=== PATIENT | male | born 1950 | race Two or more races ===

== ENCOUNTER 2025-08-06 16:55 | Inpatient (IN) | payer MEDICARE, SELFPAY ==
[2025-08-06] VITALS (19 sets, daily range): BP systolic 134–189; BP diastolic 74–104; PULSE 88–101; RESP 10–27; TEMP 36.6–36.7; O2SAT 95–97; BMI 24.1
--- NOTE | 2025-08-06 17:02 | PD.EDNEURO ---
Neuro Symptoms Deficit-RME/HPI General Chief Complaint: Neuro Symptoms/Deficit Stated Complaint: STROKE ALERT Time Seen by Provider: 08/06/25 17:07 Arrival date/time: 08/06/25 16:55 Limitations: no limitations RME / HPI RME / HPI Narrative: 75 year old male with history of diabetes presents to the ED, brought in by his sister for evaluation of left-sided weakness. The weakness began yesterday afternoon and has progressively worsened. He reports that yesterday morning, he was able to walk a quarter mile without difficulty, but later in the day, he developed weakness on the left side of his body.. Additionally, the patient complains of constipation for the past week and difficulty urinating for the last four days. His sister, who is at the bedside, notes that the patients speech is different, has felt hot to the touch, and has had red, swollen eyes. Denies measuring temperature at home. Patient denies any cough, shortness of breath, abdominal pain, or nausea/vomiting. On initial exam: The patient is able to raise both legs, left leg 4/5 and right leg 5/5. The right arm is 5/5 and the left arm is 0/5. Related Data Home Medications ?Medication ?Instructions ?Recorded ?Confirmed lisinopril .ROUTE 08/07/25 metformin .ROUTE 08/07/25 Allergies Allergy/AdvReac Type Severity Reaction Status Date / Time No Known Drug Allergies Allergy Verified 08/06/25 18:04 Review of Systems Review of Systems Systems Reviewed: All systems reviewed, normal except as documented ED Exam Narrative Physical exam: Constitutional: Awake, alert, disheveled, positive odor of urine and stool HEENT: NC, AT, EOMI, PERRL initial exam. Neck: Supple CV: Mildly tachycardic, regular rhythm, no m/r/g Lungs: CTAB, no w/r/r, no respiratory distress. Abd: Soft, tender lower abdomen, mass noted to suprapubic region up to level of umbilicus most likely enlarged bladder. Extremities: No deformities, no edema noted to extremities. Neuro: AAOx3, left sided facial droop - mild. The patient is able to raise both legs though with 4/5 weakness to left side. The right arm strength is 5/5 and the left arm is 0/5. NIHSS: 7 (facial palsy +1, L arm motor +4, L leg +1, dysarthria +1) Skin: Warm, dry, intact General Limitations: Present no limitations Course Course Course Narrative: 1655h: Called into to triage to evaluate the patient for possible stroke alert. 1657h: Stroke alert activated. NIHSS 7. 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 Patient appears to have urinary retention on exam, greene placed, will check urine. Patient is also tachycardic, concern for infection. Abx ordered. 1750h: Patient with white blood cell count of 19.7, tachycardic, likely UTI. Sepsis alert activated. IV fluids and antibiotics ordered. 1805h: Discussed case with hospitalist team C for admission. State they will pass admission to night team and requesting CT of abdomen prior to admission. Patients case signed out to Dr. Day pending CT and admission. Quality Measures Suspected type of Stroke: Acute Ischemic Tenecteplase given: Reason(s) TPA not given: Outside the time window not given stroke Orders Category Date Time Status Bedside Blood Glucose NOW Care 08/06/25 17:08 Completed COVID-19 Screening Questionnaire NOW Care 08/06/25 18:02 Completed Primer Waterproofing Machine Adjuster NOW Care 08/06/25 17:08 Active Consult Supervisor [employer] NOW Care 08/06/25 18:23 Completed Continuous Pulse Oximetry NOW Care 08/06/25 17:08 Completed Decision to Admit X1 Care 08/06/25 18:02 Completed EKG (ED ONLY) *Do not use* NOW Care 08/06/25 17:08 Completed In and Out Catheter NEEDED Care 08/06/25 17:08 Active Insert IV NOW Care 08/06/25 17:08 Active NIH Stroke Scale now Care 08/06/25 17:08 Completed NPO NOW Care 08/06/25 17:08 Active Nurse Swallow Screen x1 Care 08/06/25 17:[address] abdomen pelvis wo con Stat Exams 08/06/25 18:[address] angio stroke protocol Stat Exams 08/06/25 17:[address] stroke protocol Stat Exams 08/06/25 17:05 Completed EKG (ED Only) Stat Exams 08/06/25 17:08 Draft XR abdomen 1V Stat Exams 08/06/25 17:10 Completed XR chest 1V portable Stat Exams 08/06/25 17:08 Completed Blood Culture (Lab) Stat Lab 08/06/25 17:59 Received CBC Stat Lab 08/06/25 17:09 Completed CRP [C-Reactive Protein] Stat Lab 08/06/25 17:55 Completed Comprehensive Metabolic Panel Stat Lab 08/06/25 17:09 Completed Drug Screen,Urine Stat Lab 08/06/25 17:50 Completed Lactate (Lactic Acid) Stat Lab 08/06/25 17:55 Completed Magnesium Stat Lab 08/06/25 17:09 Completed Partial Thromboplastin Time Stat Lab 08/06/25 17:09 Completed Procalcitonin Stat Lab 08/06/25 17:55 Completed Prothrombin Time with INR Stat Lab 08/06/25 17:09 Completed Urinalysis, C/S if Indicated Stat Lab 08/06/25 17:50 Completed Sodium Chloride 0.9% 1000 ml [Ns] 1,000 ml Med 08/06/25 17:49 Discontinued IV 999 mls/hr cefTRIAXone/D5w 1gm IV premix [Rocephin/D5w 1gm IV Med 08/06/25 17:49 Discontinued premix] 1 gm in 50 ml IV X1 Vital Signs Vital signs: Vital Signs Pulse Rate 101 H 08/06/25 17:08 Neuro Symptoms / Deficit Patient data External records reviewed:: None (No previous medical records for review ) Clinical information provided by:: patient and family (sister ) Social determinants that could affect healthcare access:: none Patient has the following chronic illnesses:: Diabetes How is presenting disease/condition affected by chronic disease/condition?: uneffected by Evaluation data The following diagnostics were reviewed and interpreted by me:: lab results, radiology exam(s) and EKG tracing(s) (17:34h T-wave inversion in v1 through v3 otherwise no acute ischemic changes, sinus tachycardia, rate 101 ) Lab and/or radiology exams considered but not ordered:: None Interpretation Summary: Ordering Physician: Liz Espinosa MD Date of Service: 08/06/25 Procedure(s): CT stroke protocol Accession Number(s): [id number] cc: Julio César Garcia MD; Liz Espinosa MD~ Examination: CT brain head without contrast. 2-D sagittal coronal reconstructions Date and time of exam:August 06, 2025, 1709 hrs. Indications: Stroke alert, onset focal neurologic deficit today left-sided body weakness CTDI: vol (mGy):52.2 DLP: (mGycm):1144 Technique: Multiple CT axial sections of the brain have been obtained, 5 mm slice thickness. Contrast has not been administered. 2-D sagittal, coronal reconstructions have been obtained Low dose protocols were performed. One or more of the following dose reduction techniques were used; automated exposure control, adjustment of the mA and/or KV according to patient size, use of iterative reconstruction technique. Findings: No significant ventricular enlargement. Low density consistent with encephalomalacia in the right frontal lobe and right basal ganglia with minimal ex lateral ventricular dilatation Intra-axial or extra-axial hemorrhage density is not seen. No mass effect or midline shift Basal cisterns are not remarkable. Fourth ventricle is midline. Cranial vault intact. Impression: Negative for acute hemorrhage, mass effect or midline shift Dictated By: Julio César Garcia MD Signed By: <Electronically signed by Julio César Garcia MD in OV> 08/06/25 1712 Medications / Prescriptions Medications or Prescriptions considered but not ordered:: None Medication administrations:: Medication Administration History Dextrose/Sodium Chloride (D5-Ns) 1,000 mls @ 60 mls/hr IV .[id number] [facility] Stop: 09/06/25 04:14 Last Admin: 08/07/25 04:32 Dose: 60 mls/hr Documented By: VR Discontinued Medications Aspirin (Aspirin Ec 81 Mg Tabec) 81 mg PO X1 ONE Stop: 08/06/25 20:47 Last Admin: 08/07/25 03:17 Dose: Not Given Documented By: VR Non-Admin Reason: Discontinued Aspirin (Aspirin Ec 81 Mg Tabec) 81 mg PO QDAY [facility] Stop: 09/06/25 08:59 Atorvastatin Calcium (Atorvastatin Calcium 20 Mg Tablet) 80 mg PO HS ANALIA Stop: 09/05/25 20:59 Last Admin: 08/07/25 03:17 Dose: Not Given Documented By: VR Non-Admin Reason: NPO Clopidogrel Bisulfate (Clopidogrel Bisulfate 75 Mg Tablet) 75 mg PO X1 ONE Stop: 08/06/25 20:47 Last Admin: 08/07/25 03:17 Dose: Not Given Documented By: VR Non-Admin Reason: Discontinued Clopidogrel Bisulfate (Clopidogrel Bisulfate 75 Mg Tablet) 75 mg PO QDAY [facility] Stop: 09/06/25 08:59 Dextrose (Dextrose 50%-Water Inj 50 Ml Syringe) 25 ml IV Q15MIN PRN PRN Reason: BG 50-70 responsive npo pt Stop: 09/05/25 20:36 Dextrose (Dextrose 50%-Water Inj 50 Ml Syringe) 50 ml IV Q15MIN PRN PRN Reason: BG <50 OR BG <70 & pt unresponsive Stop: 09/05/25 20:36 Glucagon (Glucagon Inj 1 Mg Vial) 1 mg IM Q15MIN PRN PRN Reason: BG <70, and no IV access Glycerin (Glycerin, Adult 1 Ea Supp) 1 each MN X1 ONE Stop: 08/06/25 21:01 Last Admin: 08/07/25 04:53 Dose: Not Given Documented By: STANISLAW Non-Admin Reason: Discontinued Heparin Sodium (Porcine) (Heparin Sod Inj 5000 Unit/Ml Vial) 5,000 unit SC BID [facility] Stop: 08/21/25 08:59 Ceftriaxone Sodium/Dextrose (Rocephin/D5w 1gm Iv Premix) 1 gm in 50 mls @ 100 mls/hr IV X1 ONE Stop: 08/06/25 18:18 Last Infusion: 08/06/25 19:30 Dose: Infused Documented By: Admin: 08/06/25 18:52 Dose: 100 mls/hr Documented By: ED Sodium Chloride (Ns) 1,000 mls @ 999 mls/hr IV .Q1H1M ONE Stop: 08/06/25 18:49 Last Infusion: 08/06/25 20:57 Dose: Infused Documented By: Admin: 08/06/25 18:10 Dose: 999 mls/hr Documented By: ED Sodium Chloride (Ns) 1,000 mls @ 999 mls/hr IV .Q1H1M ONE Stop: 08/07/25 01:03 Insulin Human Lispro (Insulin Lispro (Admelog) 1 Unit/0.01 Ml Unit) 0 unit SC Q6HR [facility]; Protocol Stop: 09/05/25 20:39 Last Admin: 08/07/25 01:16 Dose: 1 unit Documented By: ARCELIA Co-signed By: PARISH Admin: 08/07/25 01:16 Dose: Not Given Documented By: ARCELIA Non-Admin Reason: Contraindicated as above Consultations Consultation(s) initiated? (list below): Yes Consultation #1 (Physician, Specialty, Details): See course Diagnosis Neuro Differential Diagnosis: subarachnoid hemorrhage, cerebrovascular accident and transient cerebral ischemia Most likely diagnosis given after review of the tests above:: CVA, UTI, Sepsis Admission Indicated Admission indicated?: indicated Explain why admission is indicated or not indicated:: Hospitalist team C requesting abdomen CT prior to admission Admission Request Was there a request for admission?: Yes Admission Attestation Admission request attestation: Discussed case with [] from Hospitalist service regarding admission. Discussed patients ED course, exam findings, labs, and radiology results. The Hospitalist [agrees,declines] to accept the patient for admission. Disposition Plan Disposition Plan: other (specify) (Signed out pending CT and final disposition. ) Discharge Plan Plan Patient Disposition: Admit Acute Care w/in Hospital Patient condition on transfer: Stable Problem List Clinical Impression: Cerebrovascular accident, Acute UTI, Acute urinary retention, Sepsis
--- NOTE | 2025-08-06 17:05 | XR_ITS ---
Examination: CTA carotids with intravenous contrast CTA brain, head with intravenous contrast. 2-D sagittal, coronal reconstructions. 3-D reconstructions. Exam date and time: August 06, 2025, 1720 hrs. Indications: Onset left-sided body weakness today CTDI: vol (mGy) 27.8 DLP: (mGycm) 491 Technique: Multiple CTA axial brain, head carotid images post intravenous contrast injection 100 cc, [id number]. 2-D sagittal, coronal reconstructions. 3-D reconstructions, 3-D post processing including vascular maximum intensity projection images. Low dose protocols were performed. One or more of the following dose reduction techniques were used; automated exposure control, adjustment of the mA and/or KV according to patient size, use of iterative reconstruction technique. Findings: Moderate calcification left carotid bifurcation 60% stenosis proximal 10 mm left internal carotid artery, sagittal image 33 Moderate calcification right carotid bifurcation 50% stenosis proximal right internal carotid artery 10 mm from its origin Dominant left vertebral artery in the neck with no significant stenoses Intracranial vertebral arteries and basilar artery fill 90% stenosis junction P1 and P2 segments right posterior cerebral artery 80% stenosis left P1 segment posterior cerebral artery 80% stenosis proximal M1 segment left middle cerebral artery No large vessel occlusions involving the middle cerebral anterior cerebral or posterior cerebral branches Impression: 60% stenosis proximal left internal carotid artery 50% stenosis proximal right internal carotid artery 90% stenosis junction P1 P2 segments right posterior cerebral artery 80% stenosis P1 segment left posterior cerebral artery 80% stenosis proximal M1 segment left middle cerebral artery No cerebral large vessel arterial occlusions
--- NOTE | 2025-08-06 17:05 | XR_ITS ---
Examination: CT brain head without contrast. 2-D sagittal coronal reconstructions Date and time of exam:August 06, 2025, 1709 hrs. Indications: Stroke alert, onset focal neurologic deficit today left-sided body weakness CTDI: vol (mGy):52.2 DLP: (mGycm):1144 Technique: Multiple CT axial sections of the brain have been obtained, 5 mm slice thickness. Contrast has not been administered. 2-D sagittal, coronal reconstructions have been obtained Low dose protocols were performed. One or more of the following dose reduction techniques were used; automated exposure control, adjustment of the mA and/or KV according to patient size, use of iterative reconstruction technique. Findings: No significant ventricular enlargement. Low density consistent with encephalomalacia in the right frontal lobe and right basal ganglia with minimal ex lateral ventricular dilatation Intra-axial or extra-axial hemorrhage density is not seen. No mass effect or midline shift Basal cisterns are not remarkable. Fourth ventricle is midline. Cranial vault intact. Impression: Negative for acute hemorrhage, mass effect or midline shift
--- NOTE | 2025-08-06 17:08 | XR_ITS ---
Examination: AP chest single view Technique: AP portable semiupright chest single view Date and time: August 06, 2025, 180 hrs. Indications: Stroke alert, onset focal neurologic deficit today. Findings: Mild prominence left ventricle. Mild vascular congestion. No aspiration pneumonia. Prominent osteopenia Impression: No aspiration pneumonia
--- NOTE | 2025-08-06 17:08 | EKG_ITS ---
[facility] Test Date: 2025-08-06 Pat Name: LORA LOYA Department: Room: - Gender: Male Progressive Care Manager: : 1950 Requested By: Liz Coelho Order Number: [id number] Reading MD: Liz Coelho Measurements Intervals [place] Rate: 101 P: 48 NM: 169 QRS: -79 QRSD: 165 T: 31 QT: 371 QTc: 483 Interpretive Statements SINUS TACHYCARDIA RIGHT BUNDLE BRANCH BLOCK [120+ ms QRS DURATION, UPRIGHT V1, 40+ ms S IN I/aVL/V4/V5/V6] LEFT ANTERIOR FASCICULAR BLOCK [QRS AXIS <= -45, QR IN I, RS IN II] POSSIBLE SEPTAL MYOCARDIAL INFARCTION , OF INDETERMINATE AGE [30 ms Q WAVE IN V1/V2] No previous ECG available for comparison /store/S0/[id number].pdf
--- NOTE | 2025-08-06 17:10 | XR_ITS ---
Examination: Abdomen AP single view Technique: AP portable supine abdomen, single view Exam date and time: August 06, 2025, 1757 hrs. Indications: Abdominal pain and constipation 3 days. Findings: Large amounts of air and stool throughout the colon Air distended small bowel loops in addition No free air Contrast in the bladder with urinary Whitlock catheter Impression: Prominent colonic ileus
[2025-08-06 17:28] LABS: Basophils # (Auto) 0.0 Thou/mm3 (0.0-0.2); Basophils % (Auto) 0 % (0-2.5); Eosinophils # (Auto) 0.0 Thou/mm3 (0.0-0.5); Eosinophils % (Auto) 0 % (0-10); Hematocrit 42.3 % (41.0-53.0); Hemoglobin 14.7 g/dL (13.5-16.0); Immature Granulocytes Auto 0.09 Thou/mm3 (0.00-0.00); Lymphocytes # (Auto) 1.2 Thou/mm3 (1.0-4.8); Lymphocytes % (Auto) 6 % (10-50); Mean Corpuscular HGB Conc 34.8 g/dl (31.0-37.0); Mean Corpuscular Hemoglobin 32.0 pg (25.0-35.0); Mean Corpuscular Volume 92 fL (80-100); Monocytes # (Auto) 1.7 Thou/mm3 (0.0-0.8); Monocytes % (Auto) 9 % (0-12); Neutrophils # (Auto) 16.7 Thou/mm3 (1.8-7.7); Neutrophils % (Auto) 85 % (37-80); Nucleated Red Blood Cell # 0.00 Thou/mm3 (0.00-0.00); Nucleated Red Blood Cell % 0 /100 WBC (0); Platelet Count 241 Thou/mm3 (140-440); RDW Standard Deviation 43.3 fL (35.1-43.9); Red Blood Count 4.59 Miln/mm3 (4.50-5.90); White Blood Count 19.7 Thou/mm3 (3.8-10.6)
[2025-08-06 17:42] LABS: INR 1.0 (0.9-1.3); Partial Thromboplastin Time 26.8 Seconds (22.0-36.0); Prothrombin Time 10.9 Seconds (9.0-12.2)
[2025-08-06 17:51] LABS: Alanine Aminotransferase 13 U/L (10-49); Albumin, Serum 4.4 gm/dL (3.4-4.8); Albumin/Globulin Ratio 1.6 (1.2-2.2); Alkaline Phosphatase 66 U/L (46-116); Anion Gap 14 (7-16); Aspartate Amino Transferase 22 U/L (0-34); BUN/Creatinine Ratio 18 Ratio (12-20); Bilirubin,Total 1.7 mg/dL (0.3-1.2); Blood Urea Nitrogen 18 mg/dL (9-23); Calcium 9.6 mg/dL (8.3-10.6); Calcium (Corrected) 9.6 mg/dL (8.5-10.1); Carbon Dioxide 23.7 mMol/L (20.0-31.0); Chloride 96 mMol/L (98-107); Creatinine (Component) 1.0 mg/dL (0.6-1.3); Estimated Creatinine Clearance 58.8 mL/min (>60); Globulin 2.8 gm/dL (2.3-3.5); Glucose 287 mg/dL (74-106); Magnesium 2.0 mg/dL (1.6-2.6); Osmolality,Calculated 280 (275-295); Potassium 4.0 mMol/L (3.4-5.1); Sodium 134 mMol/L (136-145); Total Protein 7.2 gm/dL (5.7-8.2); eGFR > 60 See Note
[2025-08-06] MEDS: SODIUM CHLORIDE 0.9% 1000 ML 1,000 ML 999 ML IV (18:10)
--- NOTE | 2025-08-06 18:10 | XR_ITS ---
Examination: CT abdomen and pelvis without contrast. Coronal 3-D reconstructions. Sagittal 2-D reconstructions. Date and time of exam:August 06, 2025, 1841 hrs. Indications: Abdominal pain urinary retention today CTDI: vol (mGy): 11.4 DLP: (mGycm): 748 Technique: Axial images of the abdomen have been obtained, 3 mm slice thickness Intravenous contrast material has not been administered. Low dose protocols were performed. One or more of the following dose reduction techniques were used; automated exposure control, adjustment of the mA and/or KV according to patient size, use of iterative reconstruction technique. Findings: Atelectasis in the left lower lobe with minimal pleural fluid Trace pericardial effusion Small retrocardiac gastric hernia. Liver mildly irregular in contour No visualized liver or splenic lesions No gallstones No pancreatic or adrenal mass Contrast in the kidneys from the patient's CT stroke study as. Trace ascites Air distended colon, no pericecal inflammatory change No bowel obstruction No diverticulitis Urinary bladder is contracted around a Whitlock catheter Significant prostatomegaly AP dimension 4.7 cm mediolateral dimension 5.4 cm Rectal wall shows significant thickening axial image 215 Severe osteopenia with chronic osteoporotic compression L2, mild Impression: Suspect primary hepatocellular disease Trace ascites Significant colonic ileus Significant prostatomegaly Urinary bladder is contracted around a Whitlock catheter Rectal wall shows abnormal thickening, consider proctitis, rectal carcinoma not excluded, recommend direct inspection
--- NOTE | 2025-08-06 18:10 | PC.NURSE ---
Pt. here to bed 5 from home, pt. sister is bedside, pt. sister takes care of pt., pt. sister states that they live in a trailer in [place] with no running water. Pt. is very dirty and foul smelling, sister states that she baths pt. as best as she can. Pt. cleaned complete linen change done. Pt. tolerated well.
--- NOTE | 2025-08-06 18:10 | ESCONSULT_ITS ---
Tele Neuro Consultation Consultation Date 08/06/25 Most Recent Vital Signs Last Vital Signs Pulse 101 H 08/06/25 17:22 Resp 20 08/06/25 17:22 BP 184/104 H 08/06/25 17:22 Pulse Ox 95 08/06/25 17:22 O2 Del Method Room Air 08/06/25 17:22 Laboratory-Coagulation Panel PT 10.9 Seconds (9.0-12.2) 08/06/25 17:09 INR 1.0 (0.9-1.3) 08/06/25 17:09 APTT 26.8 Seconds (22.0-36.0) 08/06/25 17:09 Consultation Narrative [facility] Tele[facility]rology [facility] Patient Name:???LORA CASTANEDA Date of :???1950 Date of Service:???08/06/2025 16:58:33 Diagnosis:?I63.89 - Cerebrovascular accident (CVA) due to other mechanism ([facility]) Impression: ?75 year old male who presents with left side weakness and numbness. Presentation concerning for acute on chronic strokes vs recrudescence of prior strokes. Given multiple areas of intracranial stenoses recommend DAPT. Our recommendations are outlined below. Recommendations: ? Stroke/Telemetry Floor ? Neuro Checks (Q4) ? Bedside Swallow Eval ? DVT Prophylaxis ? IV Fluids, Normal Saline ? Head of Bed 30 Degrees ? Euglycemia and Avoid Hyperthermia (PRN Acetaminophen) ? Initiate or continue Aspirin 81 MG daily ? Initiate Clopidogrel 75 mg daily Sign Out: ? Discussed with Emergency Department Provider Advanced Imaging: CTA Head and Neck Completed. LVO:No Patient is not a candidate for DEISY Metrics: Last Known Well: 08/05/2025 12:00:00 Dispatch Time: 08/06/2025 16:58:33 Arrival Time: 08/06/2025 16:55:00 Initial Response Time: 08/06/2025 17:06:37Symptoms: Left side wekaness. . Initial patient interaction: 08/06/2025 17:09:22 NIHSS Assessment Completed: 08/06/2025 17:15:00Patient is not a candidate for Thrombolytic. Thrombolytic Medical Decision: 08/06/2025 17:15:00Patient was not deemed candidate for Thrombolytic because of following reasons: LKW outside 4.[address] Head: I personally reviewed all the CT images that were available to me and it showed: chronic right frontal and basal ganglia strokes Primary Provider Notified of Diagnostic Impression and Management Plan on: 08/06/2025 17:34:36 History of Present Illness:Patient is a 75 year old Male. Patient was brought by private transportation with symptoms of Left side wekaness. . 75 year old male with a history of prior strokes and diabetes who presents to the hospital with progressively worsening weakness and numbness on his left si de. Yesterday around noon he started to notice mild weakness and numbness. Symptoms got progressively worse today and on exam he is weak in the left leg and unable to lift his left arm. Past Medical History: ?Diabetes Mellitus ?Stroke Medications: No Anticoagulant use? No Antiplatelet use Reviewed EMR for current medications Allergies:? Reviewed Social History: Drug Use: No Family History: There is no family history of premature cerebrovascular disease pertinent to this consultation ROS : 14 Points Review of Systems was performed and was negative except mentioned in HPI. Past Surgical History: There Is No Surgical History Contributory To Today?s Visit Examination: BP(189/104),?Pulse(104),?Blood Glucose(273) 1A: Level of Consciousness - Alert; keenly responsive?+ 0 1B: Ask Month and Age - Both Questions Right?+ 0 1C: Blink Eyes & Squeeze Hands - Performs Both Tasks?+ 0 2: Test Horizontal Extraocular Movements - Normal?+ 0 3: Test Visual Steen - No Visual Loss?+ 0 4: Test Facial Palsy (Use Grimace if Obtunded) - Normal symmetry?+ 0 5A: Test Left Arm Motor Drift - No Effort Against [place]?+ 3 5B: Test Right Arm Motor Drift - No Drift for 10 Seconds?+ 0 6A: Test Left Leg Motor Drift - Some Effort Against [place]?+ 2 6B: Test Right Leg Motor Drift - No Drift for 5 Seconds?+ 0 7: Test Limb Ataxia (FNF/Heel-Ha) - No Ataxia?+ 0 8: Test Sensation - Normal; No sensory loss?+ 0 9: Test Language/Aphasia - Normal; No aphasia?+ 0 10: Test Dysarthria - Normal?+ 0 11: Test Extinction/Inattention - No abnormality?+ 0 NIHSS Score:?5 Pre-Morbid Modified [place] Scale: 2 Points = Slight disability; unable to carry out all previous activities, but able to look after own affairs without assistance Spoke with :?Dr. Espinosa This consult was conducted in real time using interactive audio and video technology. Patient was informed of the technology being used for this visit and agreed to proceed. Patient located in hospital and provider located at home/office setting. Patient is being evaluated for possible acute neurologic impairment and high probability of imminent or life-threatening deterioration. I spent total of 28 minutes providing care to this patient, including time for face to face visit via telemedicine, review of medical records, imaging studies and discussion of findings with providers, the patient and/or family. Dr Eva Ring [facility] For Inpatient follow-up with [facility] physician please call [facility] at . As we are not an outpatient service for any post hospital discharge needs please contact the hospital for assistance. If you have any questions for the [facility] physicians or need to reconsult for clinical or diagnostic changes please contact us via [facility] at . Signature :?Eva Ring
[2025-08-06 18:11] LABS: Lactate (Lactic Acid) 1.8 mMol/L (0.4-2.0)
[2025-08-06 18:14] LABS: Collection Type, Urine Clean Catch; Squamous Epithelial Cell,Urine 0 /hpf (0-5)
[2025-08-06 18:41] LABS: Bilirubin,Urine Negative (Negative); Blood,Urine 2+ (Negative); Clarity,Urine Clear (Clear/Hazy); Color,Urine Lt-Yellow (Lt Yel-Yel); Culture Indicated,Urine Not Indicated; Glucose, Urine 4+ (Negative); Ketones,Urine 1+ (Negative); Leukocyte Esterase,Urine Negative (Negative); Nitrite,Urine Negative (Negative); PH,Urine 6.0 (5.0-7.0); Protein,Urine Negative (Neg - Trace); RBC,Urine 62 /hpf (0-3); Specific Gravity,Urine 1.020 (1.001-1.035); Urobilinogen,Urine Negative mg/dL (0.0-1.0); WBC,Urine 2 /hpf (0-5)
[2025-08-06 18:43] LABS: Amphetamine/Methamp Scrn,U Negative (Negative); Barbiturate Screen,Urine Negative (Negative); Benzodiazepines Screen,Urine Negative (Negative); Benzoylecgonine Screen, Ur Negative (Negative); Fentanyl Screen,Urine Negative (Negative); Opiate Screen,Urine Negative (Negative); THC Screen,Urine Negative (Negative)
[2025-08-06] MEDS: cefTRIAXone/D5w 1gm IV premix 1 GM/50 ML BAG IV (18:52)
[2025-08-06 18:54] LABS: C-Reactive Protein 8.4 mg/dL (0.0-0.9); Procalcitonin 0.12 ng/ml (0.0-0.49)
[2025-08-06 21:17] LABS: Basophils # (Auto) 0.0 Thou/mm3 (0.0-0.2); Basophils % (Auto) 0 % (0-2.5); Eosinophils # (Auto) 0.0 Thou/mm3 (0.0-0.5); Eosinophils % (Auto) 0 % (0-10); Hematocrit 36.9 % (41.0-53.0); Hemoglobin 12.9 g/dL (13.5-16.0); Immature Granulocytes Auto 0.08 Thou/mm3 (0.00-0.00); Lymphocytes # (Auto) 1.5 Thou/mm3 (1.0-4.8); Lymphocytes % (Auto) 9 % (10-50); Mean Corpuscular HGB Conc 35.0 g/dl (31.0-37.0); Mean Corpuscular Hemoglobin 32.0 pg (25.0-35.0); Mean Corpuscular Volume 92 fL (80-100); Monocytes # (Auto) 1.6 Thou/mm3 (0.0-0.8); Monocytes % (Auto) 9 % (0-12); Neutrophils # (Auto) 14.4 Thou/mm3 (1.8-7.7); Neutrophils % (Auto) 82 % (37-80); Nucleated Red Blood Cell # 0.00 Thou/mm3 (0.00-0.00); Nucleated Red Blood Cell % 0 /100 WBC (0); Platelet Count 207 Thou/mm3 (140-440); RDW Standard Deviation 42.8 fL (35.1-43.9); Red Blood Count 4.03 Miln/mm3 (4.50-5.90); White Blood Count 17.7 Thou/mm3 (3.8-10.6)
--- NOTE | 2025-08-06 21:35 | ESHP_ITS ---
Documentation for date of: 08/06/25 [facility] History of Present Illness History of present illness: This is a 75-year-old male with past medical history of diabetes, HTN, previous CVA 2020, presenting to the ED with acute left-sided weakness and numbness. Symptoms started in the around noon on the day prior to presentation where he suddenly developed weakness on the left side of his body, unable to move his left arm or leg. Last known normal was the night before. His sister at bedside also noted slurred speech along with left facial droop. Also reports 3 days of constipation and unable to urinate. He had a stroke in 2020 and where he was unable to move bilateral extremities. However, his symptoms have gradually improved and he is able to drive and walk around the house using a walker. Denies headaches, fever, chills, visual changes, chest pain, palpitation, seizure or seizure-like activity, shortness of breath, GI or urinary symptoms. Past Medical History: * As above. Past Surgical History: * None. Medications: * METFORMIN and LISINOPRIL. Allergies: * No known allergies. Family History: * Noncontributory. Social History: * Denies alcohol, drug or tobacco use. * Lives with sister and a 20-year-old. ED Course: * Afebrile, HR 101, BP 184/104, satting well on room air. * CBC showed WBC 17.7, Hgb 12.9, PLT 207, no leukocytosis. * Normal coag panel. * CMP significant for sodium 134, chloride 96, GLUCOSE 287, TB 1.7, CRP 8.4. * Normal renal function, electrolytes and LFTs. * UA showed 4+ GLUCOSE, 1+ KETONE, 2+ blood, 62 RBCs, no signs of UTI. * U tox is negative. * Head CT was negative for acute hemorrhage, mass effect or midline shift. * Head/neck CTA showed 60% stenosis of proximal left internal carotid artery, 50% stenosis proximal right internal carotid artery, 90% stenosis junction P1 P2 segments right posterior cerebral artery, 80% stenosis P1 segment left posterior cerebral artery, 80% stenosis proximal M1 segment left middle cerebral artery, No cerebral large vessel arterial occlusions. * CXR showed no exposure pneumonia. 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 * EKG showed sinus tachycardia without acute ST changes. Stroke alert was initiated. Teleneurology was consulted who recommended admission for stroke workup and initiation of ASPIRIN and PLAVIX. Exam Vital Signs Temp Pulse Resp BP Pulse Ox O2 Del Method 97.8 F 92 20 169/90 H 96 Room Air 08/06/25 20:25 08/06/25 20:25 08/06/25 20:25 08/06/25 20:25 08/06/25 20:25 08/06/25 20:25 Narrative Exam GENERAL * Normal appearing male, no apparent distress, on room air satting well. HEENT * NCAT.?ROBBI. Oral mucosa is moist. Patent Nares NECK * Supple, nontender, no JVD. CHEST * RRR, no m/g/r * CTAB, no w/r/r, symmetrical expansion. ABDOMEN * Soft, flat, nontender. No guarding/rebound tenderness/masses. * Bowel sounds presents EXTREMITIES * No edema/cyanosis.? SKIN * Warm and dry, no jaundice/rashes. NEUROMUSCULAR * No lumbar or midline, no CVA, no paraspinal muscle spasm or tenderness. * Significant left facial droop noted, with addition of limited left lateral gaze bilaterally. * Decreased motor strength in left lower and upper extremity, 2 out of 5 strength. * Decreased sensation in left upper and lower extremities. * Decrease facial sensation bilaterally, worse on the left. * Dysarthria noted on exam. PSYCHIATRY * Normal mood and affect, cooperative, no SI or HI or hallucinations. Results: Labs 08/06/25 20:50 08/06/25 17:09 Labs: Short CBC 08/06/25 08/06/25 Range/Units 17:09 20:50 WBC 19.7 H 17.7 H (3.8-10.6) Thou/mm3 Hgb 14.7 12.9 L (13.5-16.0) g/dL Hct 42.3 36.9 L (41.0-53.0) % Plt Count 241 207 D (140-440) Thou/mm3 BMP 08/06/25 17:09 Sodium 134 L Potassium 4.0 Chloride 96 L Carbon Dioxide 23.7 BUN 18 Creatinine 1.0 Glucose 287 H Calcium 9.6 Liver Function 08/06/25 Range/Units 17:09 Total Bilirubin 1.7 H (0.3-1.2) mg/dL AST 22 (0-34) U/L ALT 13 (10-49) U/L Alkaline Phosphatase 66 (46-116) U/L Albumin 4.4 (3.4-4.8) gm/dL Urine 08/06/25 Range/Units 17:50 Urine Color Lt-Yellow (Lt Yel-Yel) Urine Clarity Clear (Clear/Hazy) Urine pH 6.0 (5.0-7.0) Ur Specific [place] 1.020 (1.001-1.035) Urine Protein Negative (Neg - Trace) Urine Glucose (UA) 4+ A (Negative) Quality Measures Quality Measures stroke Suspected type of Stroke: Acute Ischemic Tenecteplase given: Reason(s) Tenecteplase not given: Outside the time window not given Rehab services: PT evaluation ordered VTE Prophylaxis: pharmaceutical Antithrombotic by day 2:: not indicated (describe) Statin ordered: >75 y/o moderate or high intensity dose Anticoagulation ordered for A-fib or flutter (current or hx): not indicated Advance care planning discussed with:: patient Medications Home Medications and Allergies Home Medications ?Medication ?Instructions ?Recorded ?Confirmed ?Type lisinopril .ROUTE 08/07/25 History metformin .ROUTE 08/07/25 History Allergies Allergy/AdvReac Type Severity Reaction Status Date / Time No Known Drug Allergies Allergy Verified 08/06/25 18:04 Visit Medications Aspirin (Aspirin Ec 81 Mg Tabec) 81 mg PO QDAY ANALIA Stop: 09/06/25 08:59 Atorvastatin Calcium (Atorvastatin Calcium 20 Mg Tablet) 80 mg PO HS ANALIA Stop: 09/05/25 20:59 Clopidogrel Bisulfate (Clopidogrel Bisulfate 75 Mg Tablet) 75 mg PO QDAY ANALIA Stop: 09/06/25 08:59 Dextrose (Dextrose 50%-Water Inj 50 Ml Syringe) 25 ml IV Q15MIN PRN PRN Reason: BG 50-70 responsive npo pt Stop: 09/05/25 20:36 Dextrose (Dextrose 50%-Water Inj 50 Ml Syringe) 50 ml IV Q15MIN PRN PRN Reason: BG <50 OR BG <70 & pt unresponsive Stop: 09/05/25 20:36 Glucagon (Glucagon Inj 1 Mg Vial) 1 mg IM Q15MIN PRN PRN Reason: BG <70, and no IV access Insulin Human Lispro (Insulin Lispro (Admelog) 1 Unit/0.01 Ml Unit) 0 unit SC Q6HR [facility]; Protocol Stop: 09/05/25 20:39 Discontinued Medications Aspirin (Aspirin Ec 81 Mg Tabec) 81 mg PO X1 ONE Stop: 08/06/25 20:47 Clopidogrel Bisulfate (Clopidogrel Bisulfate 75 Mg Tablet) 75 mg PO X1 ONE Stop: 08/06/25 20:47 Glycerin (Glycerin, Adult 1 Ea Supp) 1 each [place] X1 ONE Stop: 08/06/25 21:01 Ceftriaxone Sodium/Dextrose (Rocephin/D5w 1gm Iv Premix) 1 gm in 50 mls @ 100 mls/hr IV X1 ONE Stop: 08/06/25 18:18 Last Infusion: 08/06/25 19:30 Dose: Infused Sodium Chloride (Ns) 1,000 mls @ 999 mls/hr IV .Q1H1M ONE Stop: 08/06/25 18:49 Last Infusion: 08/06/25 20:57 Dose: Infused Assessment & Plan Plan This is a 75-year-old male with past medical history of diabetes, HTN, previous CVA 2020, presenting to the ED with acute left-sided weakness and numbness. Admitted for stroke workup. Acute CVA SORAYA/MCA occlusion History of CVA 2020 Presenting with acute left-sided deficit, last sensation in addition to left facial droop. Outside the window for tPA. Head CT was negative for acute hemorrhage, mass effect or midline shift. Head/neck CTA showed 60% stenosis of proximal left internal carotid artery, 50% stenosis proximal right internal carotid artery, 90% stenosis junction P1 P2 segments right posterior cerebral artery, 80% stenosis P1 segment left posterior cerebral artery, 80% stenosis proximal M1 segment left middle cerebral artery, No cerebral large vessel arterial occlusions. Vitals on presentation showed BP 184/104, HR 105, afebrile. Teleneurology was consulted. Recommendations as below: ? Seizure precaution ? Head elevation >30 degrees ? Permissive hypertension ? Continue LABETALOL 10 mg for BP >220/120 ? Continue TYLENOL for fever ? Continue ASPIRIN 81 mg daily ? Continue PLAVIX 75 mg daily ? Pending bedside swallow eval ? Pending speech evaluation ? Pending physical therapy evaluation ? Pending lipid panel, TSH, A1c, echocardiogram ? Pending neurology recommendations ? Pending MRI brain During neuro evaluation after admission patient was noted to have NIHSS score much higher than prior, Imaging performed shortly after the NIHSS score increase showed significant findings. A CT of the head revealed an ill-defined hypodensity in the right frontoparietal lobe, indicating acute or subacute infarction, without evidence of intracranial hemorrhage or midline shift. Encephalomalacia in the right frontal lobe was noted, likely from a prior chronic infarct, along with periventricular white matter hypodensities suggestive of chronic small vessel ischemia. Additionally, a head/neck CTA showed severe occlusions in multiple major intracranial arteries, including the A2 and A3 segments of the right anterior cerebral artery, and the M2, M3, and M4 segments of the right middle cerebral artery. There was also moderate stenosis of the right vertebral artery, along with a partial acute pulmonary embolism in the right upper lobe pulmonary artery. Given the worsening neurological status and the severe vascular pathology revealed by imaging, the patient is now being considered for transfer to a facility capable of neurosurgery or thrombectomy, as these services are not available at the current hospital. The stroke team has recommended continued management with seizure precautions, permissive hypertension, and ongoing aspirin and clopidogrel therapy. Pending evaluations include an MRI of the brain, swallow and speech therapy, physical therapy, and further lab tests, including lipid panel and A1c. A nonemergent CT pulmonary angiogram is also planned to assess the pulmonary embolism. The patient's blood pressure is being managed with labetalol, and sliding scale insulin is used to control his diabetes. IMAGE FINDINGS: * Head CT showed acute or subacute infarction in the right frontoparietal lobe, with further evaluation recommended through MRI and clinical correlation. No signs of intracranial hemorrhage or midline shift were noted. Additionally, there is evidence of chronic small vessel ischemia in the periventricular areas, along with an old infarct and mild volume loss. * Head/Neck CTA showed occlusion of the A2 and A3 segments of the right anterior cerebral artery, with reconstitution in the A4 segment, as well as occlusion of the M2, M3, and M4 segments of the right middle cerebral artery. Additionally, there is multisegmental moderate stenosis in the intracranial portion of the right vertebral artery. In the neck, no evidence of vascular occlusion, critical stenosis, dissection, or aneurysm was found. However, an acute pulmonary embolism is noted involving the segmental branches of the right upper lobe pulmonary artery, which was only partially imaged. Nonemergent follow-up with a CT pulmonary angiogram is recommended. Acute cystitis Patient started on Ceftriaxone F/U Ucx and Bcx F/U daily CBC HTN History of hypertension, BP elevated on presentation as above, likely in setting of stroke. ? LABETALOL on board as above. T2DM GLUCOSE slightly elevated. Pending A1c. ? INSULIN sliding scale ? Accu-Cheks Health maintenance Diet: NPO GI prophylaxis: PROTONIX DVT prophylaxis: HEPARIN subcu Antibiotics: Not indicated CODE STATUS: Full code Disposition: Admitted for stroke workup Case was discussed with attending physician, Dr. Cortez. Shira Flores, DO PGY II This document was transcribed using voice recognition technology. Minor inaccuracies may be present. Attending Provider Attestation/Addendum After examination of the patient and review of the clinical data I feel that this patient needs admission to the hospital for further treatment/evaluation. TOTAL CC TIME: 60 MIN TOTAL TIME: 60 Minutes of direct medical management and planning of care. I Debi Cortez MD, attest that I was physically present for moore portions of evaluation, and examined patient, labs and imagings and plan of care were discussed with IM residents team, and I agree with the findings and plans documented above.
--- NOTE | 2025-08-06 22:14 | PC.NURSE ---
Attempted to call report at [phone]. no answer, sent to chopper gun operator
--- NOTE | 2025-08-06 22:57 | PC.NURSE ---
Case Consult 08/06/2025 22:56:57 [facility] Case # [id number] has been created.
--- NOTE | 2025-08-06 23:58 | XR_ITS ---
Examination: CT brain head without contrast. 2-D sagittal coronal reconstructions Date and time of exam:August 07, 2025, 0012 hrs. Indications: Stroke alert, onset focal neurologic deficit today Comparison: August 06, 2025 CTDI: vol (mGy):53.8 DLP: (mGycm):1136 Technique: Multiple CT axial sections of the brain have been obtained, 5 mm slice thickness. Contrast has not been administered. 2-D sagittal, coronal reconstructions have been obtained Low dose protocols were performed. One or more of the following dose reduction techniques were used; automated exposure control, adjustment of the mA and/or KV according to patient size, use of iterative reconstruction technique. Findings: Again noted low density in the right frontal region with mild ipsilateral ventricular dilatation,clinical correlation advised Intra-axial or extra-axial hemorrhage density is not seen. No mass effect or midline shift Basal cisterns are not remarkable. Fourth ventricle is midline. Cranial vault intact. Impression: No interval acute hemorrhage, mass effect or midline shift Low density in the right frontal region with mild ipsilateral ventricular dilatation, clinical correlation advised
[2025-08-07] VITALS (14 sets, daily range): BP systolic 111–191; BP diastolic 73–103; PULSE 82–99; RESP 13–24; TEMP 36.1–37.6; O2SAT 93–98; BMI 12.0
--- NOTE | 2025-08-07 | XR_ITS ---
Examination: CTA carotids with intravenous contrast CTA brain, head with intravenous contrast. 2-D sagittal, coronal reconstructions. 3-D reconstructions. Exam date and time: August 12, 2025, 1213 hrs., Comparison August 06, 2025 CTDI: vol (mGy) 52.1 DLP: (mGycm) 494 Technique: Multiple CTA axial brain, head carotid images post intravenous contrast injection 75 cc, [id number]. 2-D sagittal, coronal reconstructions. 3-D reconstructions, 3-D post processing including vascular maximum intensity projection images. Low dose protocols were performed. One or more of the following dose reduction techniques were used; automated exposure control, adjustment of the mA and/or KV according to patient size, use of iterative reconstruction technique. Findings: No significant common carotid carotid bifurcation or internal carotid artery stenoses Dominant left vertebral artery with no critical stenoses Filling defects in right upper lobe pulmonary artery branches Occlusion of the right A2 and A3 segments anterior cerebral artery Occlusion of the right M1, M2, M3 and M4 segments right middle cerebral artery Impression: Positive for right upper lobe pulmonary artery emboli No significant neck arterial stenoses Occlusion of the right A2 A3 segments anterior cerebral artery Occlusion of the right M1, M2, M3, M4 segments right middle cerebral artery
--- NOTE | 2025-08-07 | PC.NURSE ---
SECOND STROKE ALERT CALLED @ [id number] DUE TO PT'S CHANGE IN CONDITION.
--- NOTE | 2025-08-07 00:12 | ESCONSULT_ITS ---
Tele Neuro Consultation Consultation Date 08/07/25 Most Recent Vital Signs Last Vital Signs Temp 98.1 F 08/06/25 21:37 Pulse 91 08/06/25 22:10 Resp 14 08/06/25 22:10 BP 170/87 H 08/06/25 22:10 Pulse Ox 96 08/06/25 22:10 O2 Del Method Room Air 08/06/25 22:10 Laboratory-Coagulation Panel PT 10.9 Seconds (9.0-12.2) 08/06/25 17:09 INR 1.0 (0.9-1.3) 08/06/25 17:09 APTT 26.8 Seconds (22.0-36.0) 08/06/25 17:09 Consultation Narrative [facility] Tele[facility]urology Consult Services Stat Consult Patient Name:???LORA CASTANEDA Date of :???1950 Identification Number:??? Date of Service:???08/06/2025 23:06:08 Diagnosis:?I63.89 - Cerebrovascular accident (CVA) due to other mechanism ([facility]) Impression The patient has a h/o strokes, not on anticoagulation, presented with some L side weakness and had workup with CTH and CTA showing multifocal stenoses. His initial NIHSS was 5 with only weakness to his L arm and leg. Currently he has severe dysarthria with unintelligible speech, L arm and leg are flaccid and also had gaze preference and hemianopsia. NIHSS of 18. Per the RN this is acute change. LKWT is unclear but is outside the window for IV thrombolysis. MRS is 3. His prior CT showed encephalomalacia in the R frontal region with chronic stroke. Given the acute decline, this is worse than his prior strokes so unmasking may be less likely. I recommend repeating CTH and CTA to rule out hemorrhage, large territory infarct or LVO. Recommendations: Our recommendations are outlined below. Diagnostic Studies :MRI head without contrast Laboratory Studies :Lipid panel * I orderedHemoglobin A1c Antithrombotic Medication :continue plavix, asa, and high intensity statin Nursing Recommendations :IV Fluids, avoid dextrose containing fluids, Maintain euglycemia Neuro checks q4 hrs x 24 hrs and then per shift Head of bed 30 degrees Continue with Telemetry Consultations :Recommend Speech therapy if failed dysphagia screen Physical therapy/Occupational therapy Inpatient rehab if recommended by physical/occupational therapy DVT Prophylaxis :Choice of Primary Team Disposition :Neurology will follow Miscellaneous :I will follow up stat CTH to rule out acute abnormality. Please f/u CTA to rule out LVO. I will followup CTA results as well to rule out LVO. However, if you receive a report that shows large vessel occlusion please call [facility] for a to Dr coates so I can help facilitate DEISY consultation. If no LVO, then admit for further stroke workup. Advanced Imaging: Advanced imaging has been ordered. Results pending. Metrics: Dispatch Time: 08/06/2025 22:57:41 Callback Response Time: 08/06/2025 23:06:46 Primary Provider Notified of Diagnostic Impression and Management Plan on: 08/07/2025 00:02:15 CT HEAD: pending Chief Complaint: acute worsening since admission History of Present Illness:Patient is a 75 year old Male. 76M - RN said his L side deficits is acutely worsened. His NIH was 5 this m murphy. RN did his Current NIH 23. Left sided deficits. Flaccid. Paralysis on left side. Gaze limited to left side with facial droop. Seen prior as an SA. TLKW: After 5 pm on 08/06 Hx: 2 previous strokes Imaging: CTH and CTA completed, significant stenosis-done after 5 pm on 08/06. stenosis of bilateral [employer] and left MCA and all other vessels. He has a UTI. With prior strokes he was unable to move either of his legs. His arm was previously fine. His speech was affected. He recovered and was able to drive and walk with a walker up two miles a day and his speech was slightly slurred at baseline but understandable. He had some problems driving the last half a year because not able to see very well and crossed the line and had concerns about his driving. After his stroke he had loss of vision. LKWT is unknown but he is acutely worsened since his arrival yesterday at 5pm. Past Medical History: ?Hyperlipidemia ?Stroke Other PMH:? urinary retention unable to obtain due to:?? Patient Cannot Speak Medications: No Anticoagulant use? No Antiplatelet use Reviewed EMR for current medications Allergies:? Reviewed Allergies Unable To Obtain Due To:?Patient Cannot Speak Social History: Unable To Obtain Due To Patient Status :?Patient Cannot Speak Family History: Family History Cannot Be Obtained Because:Patient Cannot Speak ROS :?ROS Cannot Be Obtained Because:? Patient Cannot Speak Past Surgical History: Past Surgical History Cannot Be Obtained Because: Patient Cannot Speak There Is No Surgical History Contributory To Today?s Visit Examination: BP(156/84),?Pulse(93), 1A: Level of Consciousness - Alert; keenly responsive?+ 0 1B: Ask Month and Age - Both Questions Right?+ 0 1C: Blink Eyes & Squeeze Hands - Performs Both Tasks?+ 0 2: Test Horizontal Extraocular Movements - Partial Gaze Palsy: Can Be Overcome?+ 1 3: Test Visual Steen - Complete Hemianopia?+ 2 4: Test Facial Palsy (Use Grimace if Obtunded) - Partial paralysis (lower face)? + 2 5A: Test Left Arm Motor Drift - No Movement?+ 4 5B: Test Right Arm Motor Drift - No Drift for 10 Seconds?+ 0 6A: Test Left Leg Motor Drift - No Movement?+ 4 6B: Test Right Leg Motor Drift - No Drift for 5 Seconds?+ 0 7: Test Limb Ataxia (FNF/Heel-Ha) - No Ataxia?+ 0 8: Test Sensation - Mild-Moderate Loss: Less Sharp/More Dull?+ 1 9: Test Language/Aphasia - Normal; No aphasia?+ 0 10: Test Dysarthria - Severe Dysarthria: Unintelligble Slurring or Out of Proportion to Aphasia?+ 2 11: Test Extinction/Inattention - Profound amanda-inattention (ex: does not recognize own hand)?+ 2 NIHSS Score:?18 Spoke with :?Dr Flores over video This consult was conducted in real time using interactive audio and video technology. Patient was informed of the technology being used for this visit and agreed to proceed. Patient located in hospital and provider located at home/office setting. Patient is being evaluated for possible acute neurologic impairment and high probability of imminent or life - threatening deterioration.I spent total of 35 minutes providing care to this patient, including time for face to face visit via telemedicine, review of medical records, imaging studies and discussion of findings with providers, the patient and / or family. Dr Russ Vicente [facility] For Inpatient follow-up with [facility] physician please call [facility] at . As we are not an outpatient service for any post hospital disch arge needs please contact the hospital for assistance. If you have any questions for the [facility] physicians or need to reconsult for clinical or diagnostic changes please contact us via [facility] at . Signature :Vaishali Vicente
--- NOTE | 2025-08-07 01:06 | PRELIM_ITS ---
CT scan of the head without intravenous contrast (axial sections with sagittal and coronal reformats) August 07, 2025 at 0012 hours Clinical history: Stroke. Comparison: No prior study is available for comparison. Findings: There is an ill-defined hypodensity in the right frontoparietal lobe with loss of anthony white matter differentiation. There is no evidence of intracranial hemorrhage or midline shift. There is encephalomalacia in the parasagittal right frontal lobe, consistent with chronic infarct. There are periventricular white matter hypodensities, compatible with chronic small vessel ischemia. There is mild volume loss. The calvarium is unremarkable. The mastoid air cells and the visualized paranasal sinuses are clear. Impression: 1. Findings suggestive of acute/subacute infarction in the right frontoparietal lobe. Recommend further evaluation with MRI and clinical correlation. 2. No evidence of intracranial hemorrhage or midline shift. 3. Periventricular chronic small vessel ischemia, old infarct and volume loss. Discussion Details: Results verbally communicated to : Dr. Cortez at 01:02 AM 08/07/2025 Report Electronically Signed By: Maxi Awad 08/07/2025 1:05:14 AM [EST]
[2025-08-07] MEDS: INSULIN LISPRO (AdmeLOG) 1 UNIT/0.01 ML UNIT SC ×3 (01:16→17:04)
--- NOTE | 2025-08-07 01:24 | PRELIM_ITS ---
PRELIM ADDENDUM Prior CT angio study dated August 06, 2025 at 1720 hours is available for comparison. The occlusion of the M2, M3 and M4 segments of the right middle cerebral artery is new since the prior study. The occlusion of the A2 and A3 segments of the right anterior cerebral artery with reconstitution of the A4 segment is also seen on prior study. Report Electronically Signed By: Rika Ro 08/07/2025 2:21:19 AM [EST] ORIGINAL PRELIM REPORT: CT angiogram of the head and neck with intravenous contrast (axial sections with sagittal and coronal reformats) August 07, 2025 at 0013 hours Clinical History: Acute stroke. Technique: Helical axial sections with sagittal and coronal reformats of the head and neck were obtained with intravenous contrast. Iterative reconstruction technique was employed to reduce patient radiation exposure. 3D reformats are provided. Comparison: No prior study is available for comparison. Findings: Head: The internal carotid arteries are patent with atheromatous calcification. There is occlusion of the A2 and A3 segments of the right anterior cerebral artery with reconstitution in the A4 segment. The left anterior cerebral artery is patent throughout. There is occlusion of the M2, M3 and M4 segments of the right middle cerebral artery. The left middle cerebral artery is patent throughout. Multisegmental moderate stenosis of the intracranial portion of the right vertebral artery. The vertebrobasilar junction, basilar and posterior cerebral arteries are patent. Neck: The aortic arch to the extent visualized as well as the origins of the right brachiocephalic, left common carotid and left subclavian arteries are patent. The common carotid arteries are patent. The carotid bulbs, and proximal internal and external carotid arteries are patent with atheromatous ca lcification causing no significant stenosis The origins of the vertebral arteries are unremarkable. The left vertebral artery is dominant. No evidence of vascular occlusion, critical stenosis, dissection or aneurysm. The visualized upper lungs are clear. The soft tissues of the neck are unremarkable. Degenerative changes are identified in the spine. There is diffuse osteopenia. Incidentally noted filling defects in the segmental branches of right upper lobe pulmonary artery (image 238/254, series 16). Impression: Head: 1. Occlusion of the A2 and A3 segments of the right anterior cerebral artery with reconstitution in the A4 segment. 2. Occlusion of the M2, M3 and M4 segments of the right middle cerebral artery. 3. Multisegmental moderate stenosis of the intracranial portion of the right vertebral artery. Neck: 1. No evidence of vascular occlusion, critical stenosis, dissection or aneurysm. 2. Acute pulmonary embolism involving segmental branches of right upper lobe pulmonary artery, partially imaged. Recommend nonemergent follow-up with CT pulmonary angiogram. Discussion Details: Results verbally communicated to : Dr. Cortez at 01:22 AM 08/07/2025 Report Electronically Signed By: Maxi Awad 08/07/2025 1:24:02 AM [EST]
--- NOTE | 2025-08-07 02:14 | PC.NURSE ---
spoke with Brynn from transfer center at [facility] for transfer for neurosurgery.
--- NOTE | 2025-08-07 02:50 | PC.NURSE ---
DR. CHAPA AND DR. KIRK AT BEDSIDE SPEAKING WITH SISTER, RICCO AND PT REGARDING TRANSFER TO HIGHER LEVEL OF CARE FOR POSSIBLE NEUROLOGICAL SURGICAL INTERVENTION/THROMBECTOMY. PT WAS EXPLAINED IMPORTANCE OF TRANSFERRING TO HIGHER LOC. PT AT THIS TIME IS REFUSING TO BE TRANSFERRED D/T BEING SCARED OF POSSIBLE SIDE OF EFFECTS OF THE PROCEDURE. 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 PT ALSO STATING THAT HE WOULD LIKE TO SPEAK WITH HIS FAMILY IN A COUPLE OF DAYS TO DECIDE WHAT TO DO. EXPLAINED TO PT THAT THIS IS AN URGENT MATTER AND WOULD NEED TO MAKE A DECISION PROMPTLY. [facility] ACCEPTED PT AND BED AVAILABLE FOR PT, PENDING PT ACCEPTANCE. PT SISTER, DR. CHAPA AND DR. ARIZA SPEAKING TO PT REGARDING IMPORTANCE OF TRANSFERRING OUT. MD'S EXPLAINED BENEFITS OF HIGHER LOC TRANSFER AND DISCUSSED RISKS INCLUDING PROGRESSION OF WORSENING SYMPTOMS AND . SISTER VERBALIZES UNDERSTANDING, STATE'S THAT IT'S IS HIS DECISION TO MAKE, I CAN'T FORCE HIM . AFTER SPEAKING W/PT AND SISTER, PT AND SISTER DECLINED TO BE TRANSFERRED OUT. WHILE MD'S AT BEDSIDE, PT EXPERIENCING WORSENING DYSARTHRIA, LETHARGY. SPOKE WITH SISTER AND PT REGARDING CODE STATUS. PT TO BE DNR. PER MD, HOSPICE EVAL TO BE PLACED.
--- NOTE | 2025-08-07 02:52 | ESDS_ITS ---
Planned Discharge Date 08/07/25 DS: Providers Provider Date of admission: 08/06/25 20:28 Primary care physician: Physician No Primary/Family Admitting Provider: Debi Cortez MD Attending Provider on Admission: Debi Cortez MD Consults: 08/06/25 20:35 Referral Speech Therapy Stat Comment: 08/06/25 20:36 Referral Physical Therapy Stat Comment: Physician Instructions: 08/06/25 20:42 Consult to Neurology / Tele-Neurology Stat Comment: Consulting Provider: Brandon Babb 08/07/25 02:08 Referral - Information Assurance Officer Stat Service Needed for Transfer: Neurology Addl Comments:: Neurosurgery or IR for acute stroke 2/2 total occlusion of A2, A3, M2, M3, and M4 and PE Attending Provider on DC: Shira Flores MD Discharging Provider: Shira Flores MD DS: Diagnosis Problem List Completed Was Problem List Reviewed/Reconciled?: Yes Hospital Course Hospital Course Hospital course: This is a 75-year-old male with a history of diabetes, hypertension, and a prior cerebrovascular accident (CVA) in 2020, presenting to the ED with acute left- sided weakness, numbness, slurred speech, and left facial droop. His symptoms began the day before admission, with sudden onset of left-sided weakness and an inability to move his left arm and leg. Additionally, he has experienced three days of constipation and urinary retention. He had a significant recovery from his previous stroke, now able to walk with a walker and drive. The patient denies other neurological symptoms like headaches or chest pain. Upon initial evaluation, the patient was admitted for a stroke workup. However, shortly after admission, his NIH Stroke Scale (NIHSS) score increased from 5 to 23, with flaccid left-sided paralysis, and worsening left facial droop prompting the initiation of a second stroke alert. Vital signs included an elevated blood pressure (184/104 mmHg), but the patient remained afebrile and oxygenated well on room air. Labs revealed mild hyponatremia, elevated white blood cell count, and hyperglycemia. Mild hepatic enzyme elevations were noted, suggesting possible liver involvement. Imaging performed shortly after the NIHSS score increase showed significant findings. A CT of the head revealed an ill-defined hypodensity in the right frontoparietal lobe, indicating acute or subacute infarction, without evidence of intracranial hemorrhage or midline shift. Encephalomalacia in the right frontal lobe was noted, likely from a prior chronic infarct, along with periventricular white matter hypodensities suggestive of chronic small vessel ischemia. Additionally, a head/neck CTA showed severe occlusions in multiple major intracranial arteries, including the A2 and A3 segments of the right anterior cerebral artery, and the M2, M3, and M4 segments of the right middle cerebral artery. There was also moderate stenosis of the right vertebral artery, along with a partial acute pulmonary embolism in the right upper lobe pulmonary artery. Given the worsening neurological status and the severe vascular pathology revealed by imaging, the patient is now being considered for transfer to a facility capable of neurosurgery or thrombectomy, as these services are not available at the current hospital. The stroke team has recommended continued management with seizure precautions, permissive hypertension, and ongoing aspirin and clopidogrel therapy. Pending evaluations include an MRI of the brain, swallow and speech therapy, physical therapy, and further lab tests, including lipid panel and A1c. A nonemergent CT pulmonary angiogram is also planned to assess the pulmonary embolism. The patient's blood pressure is being managed with labetalol, and sliding scale insulin is used to control his diabetes. IMAGE FINDINGS: * Head CT showed acute or subacute infarction in the right frontoparietal lobe, with further evaluation recommended through MRI and clinical correlation. No signs of intracranial hemorrhage or midline shift were noted. Additionally, there is evidence of chronic small vessel ischemia in the periventricular areas, along with an old infarct and mild volume loss. * Head/Neck CTA showed occlusion of the A2 and A3 segments of the right anterior cerebral artery, with reconstitution in the A4 segment, as well as occlusion of the M2, M3, and M4 segments of the right middle cerebral artery. Additionally, there is multisegmental moderate stenosis in the intracranial portion of the right vertebral artery. In the neck, no evidence of vascular occlusion, critical stenosis, dissection, or aneurysm was found. However, an acute pulmonary embolism is noted involving the segmental branches of the right upper lobe pulmonary artery, which was only partially imaged. Nonem ergent follow-up with a CT pulmonary angiogram is recommended. ADMISSION DIAGNOSES: * Acute/subacute ischemic stroke. 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 * Vascular occlusions ? Occlusion of A2 and A3 segments of the right anterior cerebral artery and M2, M3, M4 segments of the right middle cerebral artery. * Left-sided paralysis ? Resulting from acute ischemic stroke. * Acute pulmonary embolism ? Involving segmental branches of the right upper lobe pulmonary artery. * Hypertension. * Type 2 Diabetes Mellitus. Transfer to higher level of care facility was initiated for SORAYA/MCA thrombectomy, patient was accepted at [facility] after a peer to peer call was done with process control supervisor Dr. Eugene. Patient's and patient's sister by bedside were informed of updates, but patient's continuously refused to be transferred as he did not want to undergo thrombectomy procedure due to concern of side effects despite thorough explanation of possible consequences of not treating arterial occlusions that may include complete loss of speech and even as infarct area likely will be very large with high risk of hemorrhagic conversion. Patient was deemed capable of making informed medical desicions at that time and he stated that he would like to pass away in peace with no further intervention for his CVA or PE. Chest CTA initially ordered for further evaluation of PE extent was canceled and patient's aspirin/clopidogrel were held per neuro recommendations, will likely also starting patient on anticoagulation for PE as risks outweigh benefits in light of patient's hemodynamic stability no active symptoms at this time. Patient and his sister expressed their wishes to proceed with hospice care, hospice referral was initiated. Case was discussed with attending physician, Lizbet Cortez. Shira Flores, PGY II This document was transcribed using voice recognition technology. Minor inaccuracies may be present. Time Spent with Patient Time attestation: Total time spent providing and/or coordinating discharge services: Time spent: Greater than 30 minutes (70 minutes) Exam Vital Signs Temp Pulse Resp BP Pulse Ox O2 Del Method 98.9 F 94 18 174/88 H 97 Room Air 08/07/25 00:28 08/07/25 02:15 08/07/25 02:15 08/07/25 02:15 08/07/25 02:15 08/07/25 02:15 Narrative Exam GENERAL * Normal appearing male, no apparent distress, on room air satting well. HEENT * NCAT.?ROBBI. Oral mucosa is moist. Patent Nares NECK * Supple, nontender, no JVD. CHEST * RRR, no m/g/r * CTAB, no w/r/r, symmetrical expansion. ABDOMEN * Soft, flat, nontender. No guarding/rebound tenderness/masses. * Bowel sounds presents EXTREMITIES * No edema/cyanosis.? SKIN * Warm and dry, no jaundice/rashes. NEUROMUSCULAR * No lumbar or midline, no CVA, no paraspinal muscle spasm or tenderness. * Significant left facial droop noted, with addition of limited left lateral gaze bilaterally. * Flaccid paralysis of left lower and upper extremity. * Decreased sensation in left upper and lower extremities. * Decrease facial sensation bilaterally, worse on the left. * Significant dysarthria noted on exam. PSYCHIATRY * Normal mood and affect, cooperative, no SI or HI or hallucinations. Discharge Plan Plan Patient Disposition: [facility] Facility Pt Being Transferred to: Other-Specify in comment Service Needed for Transfer: Interventional Radiology Patient condition on transfer: Stable Prescriptions/Referrals Prescriptions/Med Rec: No Action lisinopril .ROUTE metformin .ROUTE Referrals: No Primary/Family,Physician [Primary Care Provider] Patient/Caregiver Discharge Instructions Print Language: Korean Stand Alone Forms: [facility]cca Award Info., Patient Portal Info Letter Discharge Order Discharge Orders: Discharge (Routine); Ordered 08/07/25 Ordered By: Debi Cortez Quality Discharge Quality Measures VTE prophylaxis
--- NOTE | 2025-08-07 04:13 | EVENTNT_ITS ---
Documentation for date of: 08/07/25 Event Note Event Note: This is a 75-year-old male with a history of diabetes, hypertension, and a prior cerebrovascular accident (CVA) in 2020, presenting to the ED with acute left- sided weakness, numbness, slurred speech, and left facial droop. His symptoms began the day before admission, with sudden onset of left-sided weakness and an inability to move his left arm and leg. Additionally, he has experienced three days of constipation and urinary retention. He had a significant recovery from his previous stroke, now able to walk with a walker and drive. The patient denies other neurological symptoms like headaches or chest pain. Upon initial evaluation, the patient was admitted for a stroke workup. However, shortly after admission, his NIH Stroke Scale (NIHSS) score increased from 5 to 23, with flaccid left-sided paralysis, and worsening left facial droop prompting the initiation of a second stroke alert. Vital signs included an elevated blood pressure (184/104 mmHg), but the patient remained afebrile and oxygenated well on room air. Labs revealed mild hyponatremia, elevated white blood cell count, and hyperglycemia. Mild hepatic enzyme elevations were noted, suggesting possible liver involvement. Imaging performed shortly after the NIHSS score increase showed significant findings. A CT of the head revealed an ill-defined hypodensity in the right frontoparietal lobe, indicating acute or subacute infarction, without evidence o f intracranial hemorrhage or midline shift. Encephalomalacia in the right frontal lobe was noted, likely from a prior chronic infarct, along with periventricular white matter hypodensities suggestive of chronic small vessel ischemia. Additionally, a head/neck CTA showed severe occlusions in multiple major intracranial arteries, including the A2 and A3 segments of the right anterior cerebral artery, and the M2, M3, and M4 segments of the right middle cerebral artery. There was also moderate stenosis of the right vertebral artery, along with a partial acute pulmonary embolism in the right upper lobe pulmonary artery. Given the worsening neurological status and the severe vascular pathology revealed by imaging, the patient is now being considered for transfer to a facility capable of neurosurgery or thrombectomy, as these services are not available at the current hospital. The stroke team has recommended continued management with seizure precautions, permissive hypertension, and ongoing aspirin and clopidogrel therapy. Pending evaluations include an MRI of the brain, swallow and speech therapy, physical therapy, and further lab tests, including lipid panel and A1c. A nonemergent CT pulmonary angiogram is also planned to assess the pulmonary embolism. The patient's blood pressure is being managed with labetalol, and sliding scale insulin is used to control his diabetes. Transfer was attempted. He was initially accepted by neurovascular surgery at [facility] for potential intervention. However, after a thorough discussion of his prognosis and treatment options, the patient, while fully competent, declined further aggressive treatment, expressing his desire for speak with his PCP prior to deciding. Multiple attempts we made to reach his primary provider (Dr. London Jay) but were unsuccessful. Subsequently, the patient experienced a significant decline in mentation, losing the capacity to make informed decisions. Given this change in status, the patient's sister, as his designated next of kin, was consulted and decided to proceed with hospice care. No further interventions will be pursued, and hospice orders have been appropriately placed. Code status was updated to DNR per family's wishes. IMAGE FINDINGS: * Head CT showed acute or subacute infarction in the right frontoparietal lobe, with further evaluation recommended through MRI and clinical correlation. No signs of intracranial hemorrhage or midline shift were noted. Additionally, there is evidence of chronic small vessel ischemia in the periventricular areas, along with an old infarct and mild volume loss. * Head/Neck CTA showed occlusion of the A2 and A3 segments of the right anterior cerebral artery, with reconstitution in the A4 segment, as well as occlusion of the M2, M3, and M4 segments of the right middle cerebral artery. Additionally, there is multisegmental moderate stenosis in the intracranial portion of the right vertebral artery. In the neck, no evidence of vascular occlusion, critical stenosis, dissection, or aneurysm was found. However, an acute pulmonary embolism is noted involving the segmental branches of the right upper lobe pulmonary artery, which was only partially imaged. Nonemergent follow-up with a CT pulmonary angiogram is recommended. ADMISSION DIAGNOSES: * Acute/subacute ischemic stroke. 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 * Vascular occlusions ? Occlusion of A2 and A3 segments of the right anterior cerebral artery and M2, M3, M4 segments of the right middle cerebral artery. * Left-sided paralysis ? Resulting from acute ischemic stroke. * Acute pulmonary embolism ? Involving segmental branches of the right upper lobe pulmonary artery. * Hypertension. * Type 2 Diabetes Mellitus. Plan: Hospice services consulted Case was discussed with attending physician, Dr. Samuels. Shira Flores, DO PGY II This document was transcribed using voice recognition technology. Minor inaccuracies may be present.
--- NOTE | 2025-08-07 04:15 | PC.NURSE ---
family and pt declined transfer. Charge and MD Flores and MD Cortez at bedside educating pt and family on need for transfer and risk and benefits. Family verbalized understanding and declined transfer. Plan of care was discussed and pt was changed to a DNR with hospice consult. Charge called [facility] and informed them of family/pts decision and cancelled transfer.
[2025-08-07] MEDS: DEXTROSE 5%-NS 1,000 ML 60 ML IV (04:32)
--- NOTE | 2025-08-07 10:05 | ESPR_ITS ---
<Statement entered by Ambrosio Gamez MD - 08/07/25 16:27> I saw and examined patient personally and supervised PGY 1 resident, Dr. Augustin with formulating a management plan. I agree with the documentation with the exceptions as listed below. Patient is a 75-year-old male with past medical history significant for NIDDM type II, history of CVA with left-sided deficits and ambulates with a walker at baseline and primary hypertension who presented with new onset acute left-sided weakness and numbness. Patient was admitted for stroke workup. Problem list: 1. Acute CVA 2. 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 Right upper lobe pulmonary artery emboli 4. History of CVA with left-sided deficits 5. Primary hypertension 6. NIDDM type II Initially on presentation patient and his sister wished for hospice care they denied transfer to [facility] [place] for neurosurgical intervention. This morning they changed their mind and wanted SNF placement to work with physiotherapy. However they do not wish to pursue aggressive medical management either including anticoagulation. At this point in time we will awaiting neurology recommendations before proceeding with any medical treatment. NEWSPAPER CARRIER evaluated the patient and placed him on a dysphagia diet, she also said that for long-term nutritional needs he is at high risk of aspiration and recommended a PEG tube if the patient and family are amenable. Physical therapy was also ordered to assess patient for SNF placement. Plan of care discussed with Attending Dr. Nolan Gamez MD PGY 2 Disclaimer: This note was dictated by speech recognition. Minor errors in race and sports book writer may be present due to voice recognition software. Documentation for date of: 08/07/25 Subjective Subjective Interval history: Patient examined bedside with sister/roommate available. AOx3. Patient speaks with a slur but is able to communicate, able to understand and follow commands GCS: 15. The family confirms they did not want to transfer or surgery. She reports up until the other day he was able to do most activities of daily living such as eating and dressing, but he did need help bathing since his prior strokes in 2020. Exam Vital Signs Temp Pulse Resp BP Pulse Ox O2 Del Method 97.4 F 82 18 111/73 96 Room Air 08/07/25 08:00 08/07/25 08:00 08/07/25 08:00 08/07/25 08:00 08/07/25 08:00 08/07/25 08:00 Narrative Exam GENERAL APPEARANCE: AOx3. NAD, unable to move left hemisphere of body, slurring words HEENT: Normocephalic atraumatic, L side facial droop and numbness neck is supple. Lids/conjunctiva normal. Mucous membranes moist, nares normal, lips/teeth normal uvula midline without oral pharyngeal erythema, exudate or swelling TMs normal bilaterally. No lymphangitis/lymphedema. CARDIAC: Regular rate and rhythm, S1+S2 heard. No murmurs, rubs, or gallops noted RESPIRATORY: respiratory effort normal, speaks in full sentences, no tripod position, no accessory muscle use. Lungs clear to auscultation without rhonchi, wheezes, rales ABDOMINAL: NBS. Soft, ND/NT. No evidence of fluid wave. No pulsatile masses on exam, rebound tenderness, Acosta sign or pain over Mcburney's point. MUSCLES/EXTREMITIES: No abnormal range of motion on R side. L hemisphere paralysis DERM: Warm, pink and dry. No rashes, dermatoses, petechiae or lesions. NEUROLOGICAL: Speech is slurred but appropriate. Normal level of consciousness. Unable to assess gait and coordination. 5/5 strength in Left sided extremities, 0/5 R sided extremities. NIHSS: 21 PSYCH: Normal mood and affect. Judgement/capacitance is appropriate Objective Labs 08/08/25 05:30 08/08/25 05:30 Labs: Laboratory Results - last 24 hr 08/06/25 08/06/25 08/06/25 17:09 17:50 17:55 WBC 19.7 H RBC 4.59 Hgb 14.7 Hct 42.3 MCV 92 MCH 32.0 MCHC 34.8 RDW Std Deviation 43.3 Plt Count 241 Neut % (Auto) 85 H Lymph % (Auto) 6 L [place] % (Auto) 9 Eos % (Auto) 0 Baso % (Auto) 0 Neut # (Auto) 16.7 H Lymph # (Auto) 1.2 [place] # (Auto) 1.7 H Eos # (Auto) 0.0 Baso # (Auto) 0.0 Immature Gran # (Auto) 0.09 H Absolute Nucleated RBC 0.00 Immature Gran % 1 H Nucleated RBC % 0 PT 10.9 INR 1.0 APTT 26.8 Sodium 134 L Potassium 4.0 Chloride 96 L Carbon Dioxide 23.7 Anion Gap 14 BUN 18 Creatinine 1.0 Estim Creat Clear Calc 58.8 L eGFR > 60 BUN/Creatinine Ratio 18 Glucose 287 H Calculated Osmolality 280 Lactic Acid 1.8 Calcium 9.6 Corrected Calcium 9.6 Magnesium 2.0 Total Bilirubin 1.7 H AST 22 ALT 13 Alkaline Phosphatase 66 C-Reactive Prot, Quant 8.4 H Total Protein 7.2 Albumin 4.4 Globulin 2.8 Albumin/Globulin Ratio 1.6 Procalcitonin 0.12 Ur Collection Type Clean Catch Urine Color Lt-Yellow Urine Clarity Clear Urine pH 6.0 Ur Specific [place] 1.020 Urine Protein Negative Urine Glucose (UA) 4+ A Urine Ketones 1+ A Urine Blood 2+ A Urine Nitrite Negative Urine Bilirubin Negative Urine Urobilinogen (Auto) Negative Ur Leukocyte Esterase Negative Urine RBC 62 H Urine WBC 2 Ur Squamous Epith Cells 0 Urine Bacteria None Ur Culture Indicated? Not Indicated Urine Opiates Screen Negative Urine Fentanyl Screen Negative Ur Barbiturates Screen Negative U Amphetamin/Meth Scrn Negative U Benzodiazepines Scrn Negative U Cocaine Metab Screen Negative U Marijuana (THC) Screen Negative 08/06/25 20:50 WBC 17.7 H RBC 4.03 L Hgb 12.9 L Hct 36.9 L MCV 92 MCH 32.0 MCHC 35.0 RDW Std Deviation 42.8 Plt Count 207 D Neut % (Auto) 82 H Lymph % (Auto) 9 L [place] % (Auto) 9 Eos % (Auto) 0 Baso % (Auto) 0 Neut # (Auto) 14.4 H Lymph # (Auto) 1.5 [place] # (Auto) 1.6 H Eos # (Auto) 0.0 Baso # (Auto) 0.0 Immature Gran # (Auto) 0.08 H Absolute Nucleated RBC 0.00 Immature Gran % 1 H Nucleated RBC % 0 PT INR APTT Sodium Potassium Chloride Carbon Dioxide Anion Gap BUN Creatinine Estim Creat Clear Calc eGFR BUN/Creatinine Ratio Glucose Calculated Osmolality Lactic Acid Calcium Corrected Calcium Magnesium Total Bilirubin AST ALT Alkaline Phosphatase C-Reactive Prot, Quant Total Protein Albumin Globulin Albumin/Globulin Ratio Procalcitonin Ur Collection Type Urine Color Urine Clarity Urine pH Ur Specific [place] Urine Protein Urine Glucose (UA) Urine Ketones Urine Blood Urine Nitrite Urine Bilirubin Urine Urobilinogen (Auto) Ur Leukocyte Esterase Urine RBC Urine WBC Ur Squamous Epith Cells Urine Bacteria Ur Culture Indicated? Urine Opiates Screen Urine Fentanyl Screen Ur Barbiturates Screen U Amphetamin/Meth Scrn U Benzodiazepines Scrn U Cocaine Metab Screen U Marijuana (THC) Screen Quality Measures Quality Measures VTE prophylaxis Advance care planning discussed with:: other Assessment & Plan Assessment Current Active Medications: Generic Name Dose Route Start Last Admin Trade Name Freq PRN Reason Stop Dose Admin Dextrose 50 ml 08/07/25 09:54 Dextrose 50%-Water Inj 50 Ml Syringe IV 09/06/25 09:53 Q15MIN PRN BG <50 OR BG <70 & pt unresponsive Glucagon 1 mg 08/07/25 09:54 Glucagon Inj 1 Mg Vial IM Q15MIN PRN BG <70, and no IV access Dextrose/Sodium Chloride 1,000 mls @ 60 mls/hr 08/07/25 04:15 08/07/25 04:32 D5-Ns IV 09/06/25 04:14 60 mls/hr .[id number] ANALIA Administration Insulin Human Lispro 0 unit 08/07/25 12:00 Insulin Lispro (Admelog) 1 Unit/0.01 Ml Unit SC 09/06/25 11:59 Q6HR ANALIA Protocol Plan This is a 75-year-old male with past medical history of diabetes, HTN, previous CVA 2020, presenting to the ED with acute left-sided weakness and numbness. Admitted for stroke workup. Repeat NIHSS 5--> 23. Patient and family did not want invasive procedures, work up, or transfer to higher level care for operations, prefer exclusively medical management. patient and family would prefer SNF over hospice. 08/07 NIHSS 21 #Acute CVA #SORAYA/MCA occlusion #History of multiple CVAs since 2020 Presenting with acute left-sided deficit, last sensation in addition to left facial droop. Outside the window for tPA. Head CT was negative for acute hemorrhage, mass effect or midline shift. Head/neck CTA showed 60% stenosis of proximal left internal carotid artery, 50% stenosis proximal right internal carotid artery, 90% stenosis junction P1 P2 segments right posterior cerebral artery, 80% stenosis P1 segment left posterior cerebral artery, 80% stenosis proximal M1 segment left middle cerebral artery, No cerebral large vessel arterial occlusions. Repeat Head/Neck CTA showed occlusion of the A2 and A3 segments of the right anterior cerebral artery, with reconstitution in the A4 segment, as well as occlusion of the M2, M3, and M4 segments of the right middle cerebral artery. Vitals on presentation showed BP 184/104, HR 105, afebrile. Teleneurology was consulted. Recommendations as below: ? Seizure precaution ? Head elevation >30 degrees ? Permissive hypertension ? Continue LABETALOL 10 mg for BP >220/120 ? Continue TYLENOL for fever ? Continue ASPIRIN 81 mg daily ? Continue PLAVIX 75 mg daily ? Pending bedside swallow eval Pureed diet, moderate oral dysphagia ? Pending physical therapy evaluation ? Pending echocardiogram - Held - Lipids -> Cholesterol: 172, Triglycerides: 85, LDL: 95, HDL: 60 - TSH: 0.92 - A1C: 7.8 During neuro evaluation after admission patient was noted to have NIHSS score much higher than prior, Imaging performed shortly after the NIHSS score increase showed significant findings. A CT of the head revealed an ill-defined hypodensity in the right frontoparietal lobe, indicating acute or subacute infarction, without evidence of intracranial hemorrhage or midline shift. Encephalomalacia in the right frontal lobe was noted, likely from a prior chronic infarct, along with periventricular white matter hypodensities suggestive of chronic small vessel ischemia. Additionally, a head/neck CTA showed severe occlusions in multiple major intracranial arteries, including the A2 and A3 segments of the right anterior cerebral artery, and the M2, M3, and M4 segments of the right middle cerebral artery. There was also moderate stenosis of the right vertebral artery, along with a partial acute pulmonary embolism in the right upper lobe pulmonary artery. Given the worsening neurological status and the severe vascular pathology revealed by imaging, the patient is now being considered for transfer to a facility capable of neurosurgery or thrombectomy, as these services are not available at the current hospital. The stroke team has recommended continued management with seizure precautions, permissive hypertension, and ongoing aspirin and clopidogrel therapy. Pending evaluations include an MRI of the brain, swallow and speech therapy, physical therapy, and further lab tests, including lipid panel and A1c. A nonemergent CT pulmonary angiogram is also planned to assess the pulmonary embolism. The patient's blood pressure is being managed with labetalol, and sliding scale insulin is used to control his diabetes. IMAGE FINDINGS: * Head CT showed acute or subacute infarction in the right frontoparietal lobe, with further evaluation recommended through MRI and clinical correlation. No signs of intracranial hemorrhage or midline shift were noted. Additionally, there is evidence of chronic small vessel ischemia in the periventricular areas, along with an old infarct and mild volume loss. * Head/Neck CTA showed occlusion of the A2 and A3 segments of the right anterior cerebral artery, with reconstitution in the A4 segment, as well as occlusion of the M2, M3, and M4 segments of the right middle cerebral artery. Additionally, there is multisegmental moderate stenosis in the intracranial portion of the right vertebral artery. In the neck, no evidence of vascular occlusion, critical stenosis, dissection, or aneurysm was found. However, an acute pulmonary embolism is noted involving the segmental branches of the right upper lobe pulmonary artery, which was only partially imaged. Nonemergent follow-up with a CT pulmonary angiogram is recommended. Pulmonary Embolism On CTA acute pulmonary embolism is noted involving the segmental branches of the right upper lobe pulmonary artery, which was only partially imaged. Nonemergent follow-up with a CT pulmonary angiogram is recommended. Plan: - Family declines operative treatment - No anticoags due to large vessel occlusion Acute cystitis Patient started on Ceftriaxone F/U Ucx and Bcx HTN History of hypertension, BP elevated on presentation as above, likely in setting of stroke. ? LABETALOL on board as above. T2DM GLUCOSE slightly elevated. A1c: 7.8. ? INSULIN sliding scale ? Accu-Cheks Health maintenance Diet: NPO GI prophylaxis: PROTONIX DVT prophylaxis: HEPARIN subcu Antibiotics: Not indicated CODE STATUS: Full code Disposition: Admitted for stroke workup Case was discussed with attending physician, Dr. Francisco, and supervising resident Dr. Vera Augustin MD PGY I Attending Provider Attestation/Addendum I, Eunice Francisco, DO, attest that I was physically present for the moore portions of the service and evaluated the patient with the resident and I reviewed and discussed the case with the resident and agree with the resident's findings and plans of care as documented above Patient seen and evaluated this Am. Sister is at bedside. Patient has left hemiplegia. He is alert and oriented x3. Tongue is also deviated to the right. Left hemineglect also noted. Patient has been restless and attempting to move his right leg out of bed to go to the bathroom. Patient and sister are understanding of patient's current condition. They have agreed that they do not wish to undergo aggressive measures besides medical management. Patient was able to pass swallow eval on pureed diet, but remains high aspiration risk. Per ST, there is concern that patient may not receive adequate nutrition and may need a PEG tube in the future in that scenario. This was relayed to patient and sister who are understanding. They would like to speak to neurologist before making any further decisions. Discussed finding of PE as well and the risks of bleeding in the setting of large infarct if anticoagulation were started. They are understanding and agreeable to observing patient's clinical course, and possibly worsening of condition, before making further decisions. Will f/u with neurology recommendations. Patient is currently on room air and denies any shortness of breath.
[2025-08-07 10:59] LABS: Basophils # (Auto) 0.1 Thou/mm3 (0.0-0.2); Basophils % (Auto) 0 % (0-2.5); Eosinophils # (Auto) 0.1 Thou/mm3 (0.0-0.5); Eosinophils % (Auto) 1 % (0-10); Hematocrit 35.9 % (41.0-53.0); Hemoglobin 12.4 g/dL (13.5-16.0); Immature Granulocytes Auto 0.06 Thou/mm3 (0.00-0.00); Lymphocytes # (Auto) 1.7 Thou/mm3 (1.0-4.8); Lymphocytes % (Auto) 13 % (10-50); Mean Corpuscular HGB Conc 34.5 g/dl (31.0-37.0); Mean Corpuscular Hemoglobin 31.2 pg (25.0-35.0); Mean Corpuscular Volume 90 fL (80-100); Monocytes # (Auto) 1.0 Thou/mm3 (0.0-0.8); Monocytes % (Auto) 8 % (0-12); Neutrophils # (Auto) 10.6 Thou/mm3 (1.8-7.7); Neutrophils % (Auto) 78 % (37-80); Nucleated Red Blood Cell # 0.00 Thou/mm3 (0.00-0.00); Nucleated Red Blood Cell % 0 /100 WBC (0); Platelet Count 203 Thou/mm3 (140-440); RDW Standard Deviation 42.5 fL (35.1-43.9); Red Blood Count 3.97 Miln/mm3 (4.50-5.90); White Blood Count 13.6 Thou/mm3 (3.8-10.6)
[2025-08-07 11:14] LABS: Glucose Estimated Average 177 mg/dL (80-131); Hemoglobin A1C 7.8 % Hgb (4.8-6.0)
[2025-08-07 11:49] LABS: Alanine Aminotransferase 9 U/L (10-49); Albumin, Serum 3.6 gm/dL (3.4-4.8); Albumin/Globulin Ratio 1.6 (1.2-2.2); Alkaline Phosphatase 52 U/L (46-116); Anion Gap 10 (7-16); Aspartate Amino Transferase 16 U/L (0-34); BUN/Creatinine Ratio 16 Ratio (12-20); Bilirubin,Total 1.1 mg/dL (0.3-1.2); Blood Urea Nitrogen 11 mg/dL (9-23); Calcium 8.5 mg/dL (8.3-10.6); Calcium (Corrected) 8.8 mg/dL (8.5-10.1); Carbon Dioxide 24.3 mMol/L (20.0-31.0); Cardiac Risk Estimate 2.9 RATIO (4.0-6.7); Chloride 101 mMol/L (98-107); Cholesterol 172 mg/dL (132-200); Creatinine (Component) 0.7 mg/dL (0.6-1.3); Estimated Creatinine Clearance 83.9 mL/min (>60); Globulin 2.3 gm/dL (2.3-3.5); Glucose 233 mg/dL (74-106); HDL Cholesterol 60 mg/dL (40-60); LDL Cholesterol,Calculated 95 mg/dL (0-130); Magnesium 1.5 mg/dL (1.6-2.6); Osmolality,Calculated 276 (275-295); Phosphorous 2.2 mg/dL (2.4-5.1); Potassium 3.4 mMol/L (3.4-5.1); Sodium 135 mMol/L (136-145); Thyroid Stimulating Hormone 0.92 uIU/mL (0.55-4.78); Total Protein 5.9 gm/dL (5.7-8.2); Triglycerides 85 mg/dL (30-150); eGFR > 60 See Note
--- NOTE | 2025-08-07 14:40 | PC.SS ---
Addendum entered by Lula Herrera 08/07/25 15:01: SS follow up note; Patient is pending PT evaluation. Original Note: SS follow up note; SS submitted SNF inquiry through [employer] platform. Patient is pending PT evaluation
--- NOTE | 2025-08-07 14:41 | PC.SS ---
Patient Gordo Mathis is a 75 Year old male admitted for Stroke W/O. SS met with patient and patient's sister, Layla Blum. Patient's sister reports patient lives at home with her. Prior to patient being admitted patient was utilizing a walker to assist with ambulation, however has been unable to ambulate since Monday. Patient was using a Rollator walker. Patient was needing assistance completing ADL's. Patient's sister reports she is unable to care for patient anymore. PCP is Floyd Kaur. Hospice was brought up to patient's sister, however she does not want hospice services at the time. Sister is requesting for patient to discharge to SNF. [facility] choice is [facility]. SS contacted Elizabeth from [facility] and she informed SS that they are able to accept, however need to run the insurance. SNF placement pending. PASSR done. Discharge plan: SNF Next of Kin: sisterLayla [phone]
--- NOTE | 2025-08-07 15:58 | PC.SS ---
SS follow up note; ANGUS was contacted by Rachell from [facility], she informed that if [facility] is unwilling to accept patient [facility] is able to accept. SS informed Rachell that patient will possibly transition to long-term. Rachell verbalized understanding.
[2025-08-07] MEDS: NAPH,KPH MBDB 1 PACKET (1.5 GM) PO (16:39)
[2025-08-07] MEDS: Magnesium Sulfate 4 GM Ivpb 4 GM/50 ML BAG IV (16:39)
--- NOTE | 2025-08-07 21:18 | PD.RESCONSUL ---
HPI Data of Consult Patient: new to practice Consult date: 08/07/25 Requesting Physician: Debi Cortez MD Admitting Provider: Debi Cortez MD Attending Provider: Debi Cortez MD Primary Care Provider: Physician Lyn Primary/Family Consult Narrative Reason for consult: Ischemic stroke History of present illness: Gordo Corcoran is 75 yr male with PMH of diabetes, HTN, previous CVA 2020 presented to ED on 08/06 due to left side full motor deficits and dysarthria. Patient's sister was a bedside who provided all the history. Symptoms began around noon on the day prior to presentation, when he developed sudden left-sided weakness with inability to move his left arm and leg. On initial evaluation, he was admitted for a stroke workup with an NIHSS of 5. Sometime after the admission, re evaluation showed a decline in neurologic status. His NIHSS score worsened to 23. Physical exam notable for worsening left side paralysis and left-sided facial droop. Second stroke alert was activated. At that time, his blood pressure was elevated to 184/104 mmHg, though he remained afebrile and oxygenated well on room air. Laboratory results were notable for mild hyponatremia, leukocytosis, hyperglycemia, and mildly elevated hepatic enzymes. Repeat imaging revealed acute findings: CT head demonstrated an ill-defined hypodensity in the right frontoparietal lobe, consistent with acute/subacute infarct, without hemorrhage or midline shift. Chronic changes were also present, including right frontal encephalomalacia and periventricular white matter hypodensities. CTA of the head and neck revealed severe occlusions of the right SORAYA (A2?A3) and MCA (M2?M4) branches, moderate stenosis of the right vertebral artery, and an incidental partial pulmonary embolism in the right upper lobe pulmonary artery. Decision was promptly made to transfer patient for surgical intervention. However upon further discussion patient declined this decision and refused any thrombolytic therapy as well. The sister was counseled about poor prognosis. She was informed that neurologic recovery is unlikely and patient not expected to regain strength or muscle use. At bedside, he is attempting to get out of bed. There is complete right side hemiparesis, left facial droop, left side neglect, and dysarthria. Speech therapy evaluated patient. He is at high aspiration risk. Can continue dysphagia pureed diet with strict precautions. Due to extent of neurologic impairment, patient may not be suitable for acute rehab placement. Continue aspirin and plavix. cc:: cc: Debi Cortez MD Review of Systems Review of Systems ROS Unobtainable: unobtainable due to medical condition Exam Vital Signs Temp Pulse Resp BP Pulse Ox O2 Del Method 99.6 F 87 16 164/92 H 97 Room Air 08/07/25 20:00 08/07/25 20:00 08/07/25 20:00 08/07/25 20:00 08/07/25 20:00 08/07/25 20:00 Narrative Exam General: Elderly male, appears distressed, unwell HEENT: NCAT, No JVD noted. Mucosa dry. Pupils are equal and reactive to light bilaterally, left facial droop Cardiovascular: Normal S1 and S2. Regular rate and rhythm. Respiratory: Lungs are clear to auscultation bilaterally. No wheezing or crackles heard. Abdomen: Soft, nontender, not distended, normal bowel sounds. Skin: Warm to touch, dry, no rashes noted Musculoskeletal: only able to move right upper and lower extremity. Strength 5/5 on right. No movement of left side. NEURO: unable to assess mentation. Left sided neglect. Speech and language: dysarthria with dysphasia. Motor system: Strength: 5 out of 5 in right extremities, 0/5 on left extremities; No pronator drift noted. No intention tremors noted. Gait: Not tested. No signs of meningeal irritation noted. Results Labs 08/07/25 10:35 08/07/25 10:35 Labs: Short CBC 08/06/25 08/07/25 Range/Units 20:50 10:35 WBC 17.7 H 13.6 H (3.8-10.6) Thou/mm3 Hgb 12.9 L 12.4 L (13.5-16.0) g/dL Hct 36.9 L 35.9 L (41.0-53.0) % Plt Count 207 D 203 (140-440) Thou/mm3 BMP 08/07/25 10:35 Sodium 135 L Potassium 3.4 D Chloride 101 Carbon Dioxide 24.3 BUN 11 Creatinine 0.7 Glucose 233 H D Calcium 8.5 Liver Function 08/07/25 Range/Units 10:35 Total Bilirubin 1.1 D (0.3-1.2) mg/dL AST 16 (0-34) U/L ALT 9 L (10-49) U/L Alkaline Phosphatase 52 D (46-116) U/L Albumin 3.6 D (3.4-4.8) gm/dL Quality Measures Quality Measures VTE prophylaxis Advance care planning discussed with:: sibling Medications Home Medications and Allergies Home Medications ?Medication ?Instructions ?Recorded ?Confirmed ?Type lisinopril .ROUTE 08/07/25 History metformin .ROUTE 08/07/25 History Allergies Allergy/AdvReac Type Severity Reaction Status Date / Time No Known Drug Allergies Allergy Verified 08/06/25 18:04 Visit Medications Glucagon (Glucagon Inj 1 Mg Vial) 1 mg IM Q15MIN PRN PRN Reason: BG <70, and no IV access Glucagon (Glucagon Inj 1 Mg Vial) 1 mg IM Q15MIN PRN PRN Reason: BG <70, and no IV access Insulin Human Lispro (Insulin Lispro (Admelog) 1 Unit/0.01 Ml Unit) 0 unit SC ANALIA; Protocol Stop: 09/07/25 07:29 Sennosides (Senna Tablet) 1 tab PO QDAY PRN; Protocol PRN Reason: CONSTIPATION Stop: 09/06/25 15:43 Last Admin: 08/07/25 20:58 Dose: 1 tab Discontinued Medications Aspirin (Aspirin Ec 81 Mg Tabec) 81 mg PO X1 ONE Stop: 08/06/25 20:47 Last Admin: 08/07/25 03:17 Dose: Not Given Aspirin (Aspirin Ec 81 Mg Tabec) 81 mg PO QDAY ANALIA Stop: 09/06/25 08:59 Atorvastatin Calcium (Atorvastatin Calcium 20 Mg Tablet) 80 mg PO HS [facility] Stop: 09/05/25 20:59 Last Admin: 08/07/25 03:17 Dose: Not Given Clopidogrel Bisulfate (Clopidogrel Bisulfate 75 Mg Tablet) 75 mg PO X1 ONE Stop: 08/06/25 20:47 Last Admin: 08/07/25 03:17 Dose: Not Given Clopidogrel Bisulfate (Clopidogrel Bisulfate 75 Mg Tablet) 75 mg PO QDAY ANALIA Stop: 09/06/25 08:59 Dextrose (Dextrose 50%-Water Inj 50 Ml Syringe) 25 ml IV Q15MIN PRN PRN Reason: BG 50-70 responsive npo pt Stop: 09/05/25 20:36 Dextrose (Dextrose 50%-Water Inj 50 Ml Syringe) 50 ml IV Q15MIN PRN PRN Reason: BG <50 OR BG <70 & pt unresponsive Stop: 09/05/25 20:36 Dextrose (Dextrose 50%-Water Inj 50 Ml Syringe) 50 ml IV Q15MIN PRN PRN Reason: BG <50 OR BG <70 & pt unresponsive Stop: 09/06/25 09:53 Glucagon (Glucagon Inj 1 Mg Vial) 1 mg IM Q15MIN PRN PRN Reason: BG <70, and no IV access Glycerin (Glycerin, Adult 1 Ea Supp) 1 each OR X1 ONE Stop: 08/06/25 21:01 Last Admin: 08/07/25 04:53 Dose: Not Given Heparin Sodium (Porcine) (Heparin Sod Inj 5000 Unit/Ml Vial) 5,000 unit SC BID [facility] Stop: 08/21/25 08:59 Ceftriaxone Sodium/Dextrose (Rocephin/D5w 1gm Iv Premix) 1 gm in 50 mls @ 100 mls/hr IV X1 ONE Stop: 08/06/25 18:18 Last Infusion: 08/06/25 19:30 Dose: Infused Sodium Chloride (Ns) 1,000 mls @ 999 mls/hr IV .Q1H1M ONE Stop: 08/06/25 18:49 Last Infusion: 08/06/25 20:57 Dose: Infused Sodium Chloride (Ns) 1,000 mls @ 999 mls/hr IV .Q1H1M ONE Stop: 08/07/25 01:03 Dextrose/Sodium Chloride (D5-Ns) 1,000 mls @ 60 mls/hr IV .[id number] [facility] Stop: 09/06/25 04:14 Last Admin: 08/07/25 04:32 Dose: 60 mls/hr Magnesium Sulfate (Magnesium Sulfate Ivpb) 4 gm in 50 mls @ 12.5 mls/hr IV X1 ONE Stop: 08/07/25 19:35 Last Admin: 08/07/25 16:39 Dose: 12.5 mls/hr Insulin Human Lispro (Insulin Lispro (Admelog) 1 Unit/0.01 Ml Unit) 0 unit SC Q6HR [facility]; Protocol Stop: 09/05/25 20:39 Last Admin: 08/07/25 01:16 Dose: 1 unit Insulin Human Lispro (Insulin Lispro (Admelog) 1 Unit/0.01 Ml Unit) 0 unit SC Q6HR ANALIA; Protocol Stop: 09/06/25 11:59 Last Admin: 08/07/25 17:04 Dose: 3 unit Potassium Phos/Sodium Phos (Naph,[facility] Mbdb 1 Packet (1.5 Gm)) 1 packet PO X1 ONE Stop: 08/07/25 15:38 Last Admin: 08/07/25 16:39 Dose: 1 packet Assessment & Plan Plan Gordo Corcoran is 75 yr male with PMH of diabetes, HTN, previous CVA 2020 presented to ED on 08/06 due to left side full motor deficits and dysarthria. Found to have acute ischemic stroke, initially NIHSS 5 progressed to NIHSS 23, now with flaccid left hemiplegia, left facial droop, and dysarthria. He denied transfer for surgery. #Right hemiparesis #Dysarthria #Acute CVA #Previous CVA Presenting with acute left-sided deficit, last sensation in addition to left facial droop. Outside the window for tPA. Head CT was negative for acute hemorrhage, mass effect or midline shift. Head/neck CTA showed 60% stenosis of proximal left internal carotid artery, 50% stenosis proximal right internal carotid artery, 90% stenosis junction P1 P2 segments right posterior cerebral artery, 80% stenosis P1 segment left posterior cerebral artery, 80% stenosis proximal M1 segment left middle cerebral artery, No cerebral large vessel arterial occlusions. Repeat Head/Neck CTA showed occlusion of the A2 and A3 segments of the right anterior cerebral artery, with reconstitution in the A4 segment, as well as occlusion of the M2, M3, and M4 segments of the right middle cerebral artery. Patient denied transfer to surgical intervention. They wish to persue acute rehab. But, . Due to extent of neurologic impairment, patient may not be suitable for acute rehab placement. ? Seizure precaution ? Head elevation >30 degrees ? Permissive hypertension ? Continue LABETALOL 10 mg for BP >220/120 ? Continue TYLENOL for fever ? Continue ASPIRIN 81 mg daily ? Continue PLAVIX 75 mg daily ? Pending bedside swallow eval --Pureed diet, moderate oral dysphagia. Consider tube feeds due to high aspiration risk ? Pending physical therapy evaluation -MRI held ? Pending echocardiogram - Held - Lipids -> Cholesterol: 172, Triglycerides: 85, LDL: 95, HDL: 60 - TSH: 0.92 - A1C: 7.8 #Pulmonary Embolism On CTA acute pulmonary embolism is noted involving the segmental branches of the right upper lobe pulmonary artery, which was only partially imaged. Nonemergent follow-up with a CT pulmonary angiogram is recommended. Plan: - Family declines operative treatment - No anticoags due to large vessel occlusion #T2DM GLUCOSE slightly elevated. A1c: 7.8. ? INSULIN sliding scale ? Accu-Cheks #Acute cystitis #HTN Primary care team to manage above conditions and ongoing care needs. The patient's management plan was discussed with my attending physician Dr. Babb. Indira Pal, PGY-2 Attending Provider Attestation/Addendum I personally have seen and examined the patient at the bedside and I agreed with the resident's findings, assessment and plan of care. His presenting symptom of dense left hemiplegia with hemineglect secondary to right MCA infarction with large vessel occlusion. Continue with aspirin, Plavix for 21 days followed by Plavix alone with statin. Follow-up with echocardiogram report. Patient's family wants him to be transferred to acute rehab, not sure about his potential. Continue with vascular risk factors controlled.
[2025-08-08] VITALS (8 sets, daily range): BP systolic 150–183; BP diastolic 70–92; PULSE 70–93; RESP 14–28; TEMP 36.1–36.8; O2SAT 94–98; BMI 25.1
[2025-08-08 05:57] LABS: Basophils # (Auto) 0.1 Thou/mm3 (0.0-0.2); Basophils % (Auto) 1 % (0-2.5); Eosinophils # (Auto) 0.3 Thou/mm3 (0.0-0.5); Eosinophils % (Auto) 3 % (0-10); Hematocrit 35.3 % (41.0-53.0); Hemoglobin 11.9 g/dL (13.5-16.0); Immature Granulocytes Auto 0.04 Thou/mm3 (0.00-0.00); Lymphocytes # (Auto) 2.4 Thou/mm3 (1.0-4.8); Lymphocytes % (Auto) 21 % (10-50); Mean Corpuscular HGB Conc 33.7 g/dl (31.0-37.0); Mean Corpuscular Hemoglobin 31.6 pg (25.0-35.0); Mean Corpuscular Volume 94 fL (80-100); Monocytes # (Auto) 1.2 Thou/mm3 (0.0-0.8); Monocytes % (Auto) 10 % (0-12); Neutrophils # (Auto) 7.4 Thou/mm3 (1.8-7.7); Neutrophils % (Auto) 65 % (37-80); Nucleated Red Blood Cell # 0.00 Thou/mm3 (0.00-0.00); Nucleated Red Blood Cell % 0 /100 WBC (0); Platelet Count 196 Thou/mm3 (140-440); RDW Standard Deviation 43.8 fL (35.1-43.9); Red Blood Count 3.76 Miln/mm3 (4.50-5.90); White Blood Count 11.4 Thou/mm3 (3.8-10.6)
[2025-08-08 06:41] LABS: Alanine Aminotransferase 8 U/L (10-49); Albumin, Serum 3.3 gm/dL (3.4-4.8); Albumin/Globulin Ratio 1.5 (1.2-2.2); Alkaline Phosphatase 46 U/L (46-116); Anion Gap 8 (7-16); Aspartate Amino Transferase 13 U/L (0-34); BUN/Creatinine Ratio 15 Ratio (12-20); Bilirubin,Total 0.9 mg/dL (0.3-1.2); Blood Urea Nitrogen 12 mg/dL (9-23); Calcium 8.3 mg/dL (8.3-10.6); Calcium (Corrected) 8.9 mg/dL (8.5-10.1); Carbon Dioxide 27.7 mMol/L (20.0-31.0); Chloride 102 mMol/L (98-107); Creatinine (Component) 0.8 mg/dL (0.6-1.3); Estimated Creatinine Clearance 73.4 mL/min (>60); Globulin 2.2 gm/dL (2.3-3.5); Glucose 195 mg/dL (74-106); Magnesium 2.1 mg/dL (1.6-2.6); Osmolality,Calculated 280 (275-295); Phosphorous 2.6 mg/dL (2.4-5.1); Potassium 3.5 mMol/L (3.4-5.1); Sodium 138 mMol/L (136-145); Total Protein 5.5 gm/dL (5.7-8.2); eGFR > 60 See Note
[2025-08-08] MEDS: INSULIN LISPRO (AdmeLOG) 1 UNIT/0.01 ML UNIT SC ×3 (07:54→18:01)
[2025-08-08] MEDS: POTASSIUM CHLORIDE 10% 20 MEQ/15 ML UDC 40 MEQ PO (08:40)
[2025-08-08] MEDS: CLOPIDOGREL BISULFATE 75 MG TABLET PO (08:41)
[2025-08-08] MEDS: ASPIRIN EC 81 MG TABEC PO (08:41)
[2025-08-08] MEDS: POTASSIUM CHL 10 mEq IVPB 10 MEQ/100 ML BAG 100 MEQ IV ×3 (09:54→12:15)
--- NOTE | 2025-08-08 11:01 | PC.SS ---
PT submitted to [facility] via [facility]. Requested initiation of authorization for placement.
--- NOTE | 2025-08-08 11:05 | PC.SS ---
Update: Plan is to d/c patient today. SNF authorization is pending.
[2025-08-08] MEDS: LACTULOSE SYRUP 20 GM/30 ML UDC 10 GM PO ×3 (11:48→20:29)
--- NOTE | 2025-08-08 11:56 | ESPR_ITS ---
Documentation for date of: 08/08/25 No overnight events. acute CVA, likely ischemic, secondary to large vessel occlusion of the anteriior cerebral artery and right middle cerebral artery, patient started on Plavix and Aspirin by neurology. Continue high intensity statins, and resume Lisinopril 10 mg once daily. Physical therapy recommending SNF for continued PT and likely require termite technician SNF placement, likely at [facility]. Overall patient may require termite technician placement give history of strokes and now left hemiplegia. Continue dysphagia diet. Family made aware that as time progresses he may require further assistance with activity of daily living,including nutritional intake. - The patient's plan was discussed with attending Dr. Cristina Conklin MD PGY2 Internal Medicine Subjective Subjective Interval history: No overnight events. Patient was examined at bedside; he is sitting upright in his bed and difficult to understand due to his dysarthria but seems able to understand and follow commands. Vitals and labs today WNL. On physical exam, he continues to exhibit seemingly complete left-sided hemiparesis with 0/5 strength in both left arm and left leg. He is also unable to smile or raise his eyebrows on command but endorses symmetric facial sensation in the distributions of cranial nerve V. Current plan is to remove his [place], give him lactulose x 1 to help with bowel movements, and work to arrange PT and OT for him on transfer to [facility]. Exam Vital Signs Temp Pulse Resp BP Pulse Ox O2 Del Method 97.3 F 85 28 H 175/89 H 97 Room Air 08/08/25 08:00 08/08/25 11:54 08/08/25 08:00 08/08/25 11:54 08/08/25 08:00 08/08/25 08:00 Narrative Exam GENERAL APPEARANCE: AOx3. NAD, unable to move left hemisphere of body, slurring words HEENT: Normocephalic atraumatic, L side facial droop and numbness neck is supple. Lids/conjunctiva normal. Mucous membranes moist, nares normal, lips/teeth normal uvula midline without oral pharyngeal erythema, exudate or swelling TMs normal bilaterally. No lymphangitis/lymphedema. CARDIAC: Regular rate and rhythm, S1+S2 heard. No murmurs, rubs, or gallops noted RESPIRATORY: respiratory effort normal, no tripod positioning, no accessory muscle use. Lungs clear to auscultation without rhonchi, wheezes, rales ABDOMINAL: NBS. Soft, ND/NT. No evidence of fluid wave. No pulsatile masses on exam, rebound tenderness, Acosta sign or pain over Mcburney's point. MUSCLES/EXTREMITIES: No abnormal range of motion on R side. L-sided paralysis DERM: Warm, pink and dry. No rashes, dermatoses, petechiae or lesions. NEUROLOGICAL: Speech is slurred. Normal level of consciousness. Unable to assess gait and coordination. 5/5 strength in Left sided extremities, 0/5 R sided extremities. Objective Labs 08/12/25 04:56 08/12/25 04:56 Labs: Laboratory Results - last 24 hr 08/08/25 05:30 WBC 11.4 H RBC 3.76 L Hgb 11.9 L Hct 35.3 L MCV 94 MCH 31.6 MCHC 33.7 RDW Std Deviation 43.8 Plt Count 196 Neut % (Auto) 65 Lymph % (Auto) 21 [place] % (Auto) 10 Eos % (Auto) 3 Baso % (Auto) 1 Neut # (Auto) 7.4 Lymph # (Auto) 2.4 [place] # (Auto) 1.2 H Eos # (Auto) 0.3 Baso # (Auto) 0.1 Immature Gran # (Auto) 0.04 H Absolute Nucleated RBC 0.00 Immature Gran % 0 Nucleated RBC % 0 Sodium 138 Potassium 3.5 Chloride 102 Carbon Dioxide 27.7 Anion Gap 8 BUN 12 Creatinine 0.8 Estim Creat Clear Calc 73.4 eGFR > 60 BUN/Creatinine Ratio 15 Glucose 195 H Calculated Osmolality 280 Calcium 8.3 Corrected Calcium 8.9 Phosphorus 2.6 Magnesium 2.1 Total Bilirubin 0.9 AST 13 ALT 8 L Alkaline Phosphatase 46 Total Protein 5.5 L Albumin 3.3 L Globulin 2.2 L Albumin/Globulin Ratio 1.5 Quality Measures Quality Measures VTE prophylaxis Advance care planning discussed with:: patient Assessment & Plan Assessment Current Active Medications: Generic Name Dose Route Start Last Admin Trade Name Freq PRN Reason Stop Dose Admin Aspirin 81 mg 08/08/25 09:00 08/08/25 08:41 Aspirin Ec 81 Mg Tabec PO 09/07/25 08:59 81 mg QDAY ANALIA Administration Atorvastatin Calcium 40 mg 08/08/25 21:00 Atorvastatin Calcium 20 Mg Tablet PO 09/07/25 20:59 HS ANALIA Clopidogrel Bisulfate 75 mg 08/08/25 09:00 08/08/25 08:41 Clopidogrel Bisulfate 75 Mg Tablet PO 09/07/25 08:59 75 mg QDAY ANALIA Administration Glucagon 1 mg 08/07/25 09:54 Glucagon Inj 1 Mg Vial IM Q15MIN PRN BG <70, and no IV access Glucagon 1 mg 08/07/25 20:18 Glucagon Inj 1 Mg Vial IM Q15MIN PRN BG <70, and no IV access Insulin Human Lispro 0 unit 08/08/25 07:30 08/08/25 11:42 Insulin Lispro (Admelog) 1 Unit/0.01 Ml Unit SC 09/07/25 07:29 3 unit AC ANALIA Administration Protocol Lactulose 10 gm 08/08/25 12:00 08/08/25 11:48 Lactulose Syrup 20 Gm/30 Ml Udc PO 09/07/25 11:59 10 gm QID ANALIA Administration Protocol Lisinopril 10 mg 08/08/25 12:00 08/08/25 11:54 Lisinopril 2.5 Mg Tablet PO 09/07/25 11:59 10 mg QDAY ANALIA Administration Sennosides 1 tab 08/07/25 15:44 08/07/25 20:58 Senna Tablet PO 09/06/25 15:43 1 tab QDAY PRN Administration CONSTIPATION Protocol Plan Patient is a 75-year-old male with past medical history significant for NIDDM type II, history of CVA with left-sided deficits and ambulates with a walker at baseline and primary hypertension who presented with new onset acute left-sided weakness and numbness. Patient was admitted for stroke workup. #Acute CVA #SORAYA/MCA occlusion #History of multiple CVAs since 2020 Presenting with acute left-sided deficit, last sensation in addition to left facial droop. Outside the window for tPA. Head CT was negative for acute hemorrhage, mass effect or midline shift. Head/neck CTA showed 60% stenosis of proximal left internal carotid artery, 50% stenosis proximal right internal carotid artery, 90% stenosis junction P1 P2 segments right posterior cerebral artery, 80% stenosis P1 segment left posterior cerebral artery, 80% stenosis proximal M1 segment left middle cerebral artery, No cerebral large vessel arterial occlusions. Repeat Head/Neck CTA showed occlusion of the A2 and A3 segments of the right anterior cerebral artery, with reconstitution in the A4 segment, as well as occlusion of the M2, M3, and M4 segments of the right middle cerebral artery. Vitals on presentation showed BP 184/104, HR 105, afebrile. Teleneurology was consulted. Recommendations as below: ? Seizure precaution ? Head elevation >30 degrees ? Permissive hypertension ? Continue LABETALOL 10 mg for BP >220/120 ? Continue TYLENOL for fever ? Continue ASPIRIN 81 mg daily ? Continue PLAVIX 75 mg daily ?Bedside swallow eval complete, recommend: pureed diet, moderate oral dysphagia ?PT evaluation complete - Lipids -> Cholesterol: 172, Triglycerides: 85, LDL: 95, HDL: 60 - TSH: 0.92 - A1C: 7.8 Pulmonary Embolism On CTA acute pulmonary embolism is noted involving the segmental branches of the right upper lobe pulmonary artery, which was only partially imaged. Nonemergent follow-up with a CT pulmonary angiogram is recommended. Plan: -Family declines operative treatment -No anticoags due to large vessel occlusion and risk of hemorrhagic conversion Acute cystitis Patient started on Ceftriaxone Ucx (no growth) and Bcx ([id number] 2/2) HTN History of hypertension, BP elevated on presentation as above, likely in setting of stroke. ? LABETALOL on board as above. T2DM GLUCOSE slightly elevated. A1c: 7.8. ? INSULIN sliding scale ? Accu-Cheks Health maintenance Diet: Carbohydrate Consistent (Mildly Thick Level 2, Dysphagia 1 Pureed) GI prophylaxis: PROTONIX DVT prophylaxis: SubQ HEPARIN Antibiotics: Not indicated CODE STATUS: Full code Disposition: Plan to discharge within the next 24 hours to SNF Case was discussed with attending physician, Dr. Evans, and supervising resident Dr. Conklin. Femi Mckeon DO Internal Medicine, PGY-1 Attending Provider Attestation/Addendum I have discussed and was present for the essential components of the history, physical examination, diagnosis, and treatment plan with the resident. I agree with the patient's care as documented by the resident and amended herein by me. Aung Evans DO. Although this document has been carefully reviewed, there may still be some phonetic and other typographical errors. These errors are purely grammatical due to imperfections in the software program and should not be construed in any way to compromise the substance of the patient's medical care during this visit.
--- NOTE | 2025-08-08 13:15 | PC.SS ---
GORDO submitted patient's insurance information to [facility] on [address] [facility]. Provided contact number to Tez ext [phone].
--- NOTE | 2025-08-08 14:22 | PC.SS ---
Rounding Note: PT evaluation is pending. D/C to SNF.
--- NOTE | 2025-08-08 15:20 | PC.SS ---
SLEEPING [employer] PORTER informed that [facility] has obtained authorization. PASSR submitted on File Exchange to facility.
--- NOTE | 2025-08-08 15:51 | PC.SS ---
Tez CM is Jessie, ext [phone].
--- NOTE | 2025-08-08 15:59 | ESPR_ITS ---
Documentation for date of: 08/08/25 Subjective Subjective Interval history: Patient examined at bedside. Speech reevaluated patient today and noticed improvement in swallowing function but still remains high risk for aspiration. He is able to move left extremities. There is complete right side hemiplegia, left facial droop, left side neglect, and dysarthria. Glucose this morning 195, A1c 7.8, blood pressure 170/90. Patient will be discharged to SNF. Continue with aspirin, Plavix for 21 days followed by Plavix alone with statin. Follow-up with echocardiogram report. Exam Vital Signs Temp Pulse Resp BP Pulse Ox O2 Del Method 97.8 F 85 20 171/82 H 95 Room Air 08/08/25 12:00 08/08/25 12:00 08/08/25 12:00 08/08/25 12:00 08/08/25 12:00 08/08/25 12:00 Narrative Exam General: Elderly male, sleeping, left hemiplegia HEENT: NCAT, No JVD noted. Mucosa dry. Pupils are equal and reactive to light bilaterally, left facial droop Cardiovascular: Normal S1 and S2. Regular rate and rhythm. Respiratory: Lungs are clear to auscultation bilaterally. No wheezing or crackles heard. Abdomen: Soft, nontender, not distended, normal bowel sounds. Skin: Warm to touch, dry, no rashes noted Musculoskeletal: only able to move right upper and lower extremity. Strength 5/5 on right. No movement of left side. NEURO: unable to assess mentation. Left sided neglect. Speech and language: dysarthria with dysphasia. Motor system: Strength: 5 out of 5 in right extremities, 0/5 on left extremities; No pronator drift noted. No intention tremors noted. Gait: Not tested. No signs of meningeal irritation noted. Objective Labs 08/09/25 05:15 08/09/25 05:15 Labs: Laboratory Results - last 24 hr 08/08/25 05:30 WBC 11.4 H RBC 3.76 L Hgb 11.9 L Hct 35.3 L MCV 94 MCH 31.6 MCHC 33.7 RDW Std Deviation 43.8 Plt Count 196 Neut % (Auto) 65 Lymph % (Auto) 21 Mclennan % (Auto) 10 Eos % (Auto) 3 Baso % (Auto) 1 Neut # (Auto) 7.4 Lymph # (Auto) 2.4 Mclennan # (Auto) 1.2 H Eos # (Auto) 0.3 Baso # (Auto) 0.1 Immature Gran # (Auto) 0.04 H Absolute Nucleated RBC 0.00 Immature Gran % 0 Nucleated RBC % 0 Sodium 138 Potassium 3.5 Chloride 102 Carbon Dioxide 27.7 Anion Gap 8 BUN 12 Creatinine 0.8 Estim Creat Clear Calc 73.4 eGFR > 60 BUN/Creatinine Ratio 15 Glucose 195 H Calculated Osmolality 280 Calcium 8.3 Corrected Calcium 8.9 Phosphorus 2.6 Magnesium 2.1 Total Bilirubin 0.9 AST 13 ALT 8 L Alkaline Phosphatase 46 Total Protein 5.5 L Albumin 3.3 L Globulin 2.2 L Albumin/Globulin Ratio 1.5 Quality Measures Quality Measures VTE prophylaxis Advance care planning discussed with:: sibling Assessment & Plan Assessment Current Active Medications: Generic Name Dose Route Start Last Admin Trade Name Freq PRN Reason Stop Dose Admin Aspirin 81 mg 08/08/25 09:00 08/08/25 08:41 Aspirin Ec 81 Mg Tabec PO 09/07/25 08:59 81 mg QDAY ANALIA Administration Atorvastatin Calcium 40 mg 08/08/25 21:00 Atorvastatin Calcium 20 Mg Tablet PO 09/07/25 20:59 HS ANALIA Clopidogrel Bisulfate 75 mg 08/08/25 09:00 08/08/25 08:41 Clopidogrel Bisulfate 75 Mg Tablet PO 09/07/25 08:59 75 mg QDAY ANALIA Administration Glucagon 1 mg 08/07/25 09:54 Glucagon Inj 1 Mg Vial IM Q15MIN PRN BG <70, and no IV access Glucagon 1 mg 08/07/25 20:18 Glucagon Inj 1 Mg Vial IM Q15MIN PRN BG <70, and no IV access Insulin Human Lispro 0 unit 08/08/25 07:30 08/08/25 11:42 Insulin Lispro (Admelog) 1 Unit/0.01 Ml Unit SC 09/07/25 07:29 3 unit AC ANALIA Administration Protocol Lactulose 10 gm 08/08/25 12:00 08/08/25 11:48 Lactulose Syrup 20 Gm/30 Ml Udc PO 09/07/25 11:59 10 gm QID ANALIA Administration Protocol Lisinopril 10 mg 08/08/25 12:00 08/08/25 11:54 Lisinopril 2.5 Mg Tablet PO 09/07/25 11:59 10 mg QDAY ANALIA Administration Sennosides 1 tab 08/07/25 15:44 08/07/25 20:58 Senna Tablet PO 09/06/25 15:43 1 tab QDAY PRN Administration CONSTIPATION Protocol Plan Gordo Corcoran is 75 yr male with PMH of diabetes, HTN, previous CVA 2020 presented to ED on 08/06 due to left side full motor deficits and dysarthria. Found to have acute ischemic stroke, initially NIHSS 5 progressed to NIHSS 23, now with flaccid left hemiplegia, left facial droop, and dysarthria. He denied transfer for surgery. #Right hemiparesis #Dysarthria #Acute CVA #Previous CVA Presenting with acute left-sided deficit, last sensation in addition to left facial droop. Outside the window for tPA. Head CT was negative for acute hemorrhage, mass effect or midline shift. Head/neck CTA showed 60% stenosis of proximal left internal carotid artery, 50% stenosis proximal right internal carotid artery, 90% stenosis junction P1 P2 segments right posterior cerebral artery, 80% stenosis P1 segment left posterior cerebral artery, 80% stenosis proximal M1 segment left middle cerebral artery, No cerebral large vessel arterial occlusions. Repeat Head/Neck CTA showed occlusion of the A2 and A3 segments of the right anterior cerebral artery, with reconstitution in the A4 segment, as well as occlusion of the M2, M3, and M4 segments of the right middle cerebral artery. Patient denied transfer to surgical intervention. They wish to persue acute rehab. But, . Due to extent of neurologic impairment, patient may not be suitable for acute rehab placement. ? Seizure precaution ? Head elevation >30 degrees ? Permissive hypertension ? Continue LABETALOL 10 mg for BP >220/120 ? Continue TYLENOL for fever ? Continue ASPIRIN 81 mg daily ? Continue PLAVIX 75 mg daily (to be continued indefinitely) ? Pending bedside swallow eval --Pureed diet, moderate oral dysphagia. -MRI held ? Pending echocardiogram - Held - Lipids -> Cholesterol: 172, Triglycerides: 85, LDL: 95, HDL: 60 - TSH: 0.92 - A1C: 7.8 #Pulmonary Embolism On CTA acute pulmonary embolism is noted involving the segmental branches of the right upper lobe pulmonary artery, which was only partially imaged. Nonemergent follow-up with a CT pulmonary angiogram is recommended. Plan: - Family declines operative treatment - No anticoags due to large vessel occlusion #T2DM GLUCOSE slightly elevated. A1c: 7.8. ? INSULIN sliding scale ? Accu-Cheks #Acute cystitis #HTN Primary care team to manage above conditions and ongoing care needs. The patient's management plan was discussed with my attending physician Dr. Babb. Indira Pal, PGY-2 Attending Provider Attestation/Addendum I personally have seen and examined the patient at bedside and agree with the resident's findings, assessment and plan of care. Patient with left dense hemiplegia with the hemineglect, dysarthria secondary to right frontal hypodensity with ipsilateral ventricular dilatation. Will continue with aspirin, Plavix for 90 days followed by Plavix alone and statin. Continue with vascular risk factors control to have the A1c under 7 and aggressive blood pressure management with statin. Patient is stable for discharge to rehab.
--- NOTE | 2025-08-08 15:59 | PC.SS ---
Transport document submitted on both [employer] and [employer] fax. Dispatch stated difficulties with [employer] at current time. Awaiting call back to schedule transport.
--- NOTE | 2025-08-08 16:13 | ESDS_ITS ---
Planned Discharge Date 08/08/25 DS: Providers Provider Date of admission: 08/06/25 20:28 Primary care physician: Physician No Primary/Family Admitting Provider: Debi Cortez MD Attending Provider on Admission: Alejandro Evans DO Consults: 08/06/25 20:42 Consult to Neurology / Tele-Neurology Stat Comment: Consulting Provider: Brandon Babb 08/07/25 04:13 Referral Hospice Stat Comment: 08/07/25 09:24 Referral - [facility] Registered Nurse Routine Comment: Referral Physical Therapy Urgent Comment: Physician Instructions: Instructions: Assessment for SNF placement. s/p stroke Attending Provider on DC: Femi Mckeon MD Discharging Provider: Femi Mckeon MD DS: Diagnosis Problem List Completed Was Problem List Reviewed/Reconciled?: Yes Hospital Course Hospital Course Hospital course: ADDENDUM from 08/15/25, patient failed to be discharged on 08/08/25 Summary: Patient is a 75-year-old male with a past medical history of NIDDM type II, history of CVA with left-sided deficits and ambulates with a walker at baseline, primary hypertension who was admitted on 08/06/25 for new onset of stroke found to have a large vessel thrombus and discharged on Plavix, Aspirin, and Atorvastatin. Patient refused transfer to [facility] for neurosurgery and note a candidate for TPA based on Tele-neurology recommendations. ER: * Afebrile, HR 101, BP 184/104, satting well on room air. * CBC showed WBC 17.7, Hgb 12.9, PLT 207, no leukocytosis. * Normal coag panel. * CMP significant for sodium 134, chloride 96, GLUCOSE 287, TB 1.7, CRP 8.4. * Normal renal function, electrolytes and LFTs. * UA showed 4+ GLUCOSE, 1+ KETONE, 2+ blood, 62 RBCs, no signs of UTI. * U tox is negative. * Head CT was negative for acute hemorrhage, mass effect or midline shift. * Head/neck CTA showed 60% stenosis of proximal left internal carotid artery, 50% stenosis proximal right internal carotid artery, 90% stenosis junction P1 P2 segments right posterior cerebral artery, 80% stenosis P1 segment left posterior cerebral artery, 80% stenosis proximal M1 segment left middle cerebral artery, No cerebral large vessel arterial occlusions. * CXR showed no exposure pneumonia. 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 * EKG showed sinus tachycardia without acute ST changes. Hospital: During the course of this admission, patient's NIHSS score acutely increased from 5 to 23 and had initially been planned for transfer to [facility] for neurosurgical intervention due to imaging showing LVO but patient and his sister refused this in favor of hospice care. As a result, patient stayed at [facility] and was put on stroke protocol (seizure precautions, HOB over 30, permissive hypertension, labetalol, Tylenol, aspirin, Plavix, A1c, TSH, echo, etc.) but did not receive operative treatment (family refused) or anticoagulation (contraindicated due to LVO) for the acute pulmonary embolism seen on chest CTA. Tele-neurology consulted and given large vessel, not a candidate for TPA. Dr. Babb consulted, neurology, and recommended to start Aspirin and Plavix for 21 days. After 21 days, continue Plavix and stop Aspirin. Continue high dose Atorvastatin. He was also started on IV ceftriaxone for the acute cystitis suggested by his UA. Patient set to be discharge to SNF at [facility]. Patient is safe to discharge to home. Further discharge instructions below. -New medication of Atorvastatin 80 mg at night -New medication of Aspirin and Plavix 75 mg once day for Stroke to be continued for 21 days, then only Plavix. Please follow up with your primary care provider -Please follow up with Neurology, Dr. Babb, for stroke. -Please follow up with your primary care provider within one week of discharge -Plan to discharge to [facility] -If your symptoms worsen,please seek immediate medical attention and return to your nearest emergency room -If you do not have a primary care provider, you may follow up at the [facility] at 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 Evans and resident Dr. Rubin Mckeon, PGY-1 Time Spent with Patient Time attestation: Total time spent providing and/or coordinating discharge services: Time spent: Greater than 30 minutes Exam Vital Signs Temp Pulse Resp BP Pulse Ox O2 Del Method 97.8 F 85 20 171/82 H 95 Room Air 08/08/25 12:00 08/08/25 12:00 08/08/25 12:00 08/08/25 12:00 08/08/25 12:00 08/08/25 12:00 Narrative Exam GENERAL APPEARANCE: AOx3. NAD, unable to move left hemisphere of body, slurring words HEENT: Normocephalic atraumatic, L side facial droop and numbness neck is supple. Lids/conjunctiva normal. Mucous membranes moist, nares normal, lips/teeth normal uvula midline without oral pharyngeal erythema, exudate or swelling TMs normal bilaterally. No lymphangitis/lymphedema. CARDIAC: Regular rate and rhythm, S1+S2 heard. No murmurs, rubs, or gallops noted RESPIRATORY: respiratory effort normal, no tripod positioning, no accessory muscle use. Lungs clear to auscultation without rhonchi, wheezes, rales ABDOMINAL: NBS. Soft, ND/NT. No evidence of fluid wave. No pulsatile masses on exam, rebound tenderness, Acosta sign or pain over Mcburney's point. MUSCLES/EXTREMITIES: No abnormal range of motion on R side. L-sided paralysis DERM: Warm, pink and dry. No rashes, dermatoses, petechiae or lesions. NEUROLOGICAL: Speech is slurred. Normal level of consciousness. Unable to assess gait and coordination. 5/5 strength in Left sided extremities, 0/5 R sided extremities. Discharge Plan Plan Patient Disposition: Xfer Skilled Nsg Fac (SNF) Patient condition on transfer: Stable Care Plan Goals: Instructions: -Fluconazole 400 mg once daily for Valley Fever for the next 3-6 months, please follow up with your primary care provider. -New medication of Aspirin and Plavix 75 mg once day for Stroke to be continued for 21 days, then only Plavix. Please follow up with your primary care provider -New medication of Atorvastatin 80 mg at night -Please follow up with Neurology, Dr. Babb, for stroke. -Amlodipine 10 mg once daily and Lisinopril 40 mg once daily. Please keep systolic blood pressure <180 -Please follow up with your primary care provider within one week of discharge -Plan to discharge to [facility] -Whitlock Catheter to be discontinued in SNF and continue bladder training. Flomax added given enlarge prostate. -If your symptoms worsen,please seek immediate medical attention and return to your nearest emergency room -If you do not have a primary care provider, you may follow up at the [facility] at [address] [place] [address] [address], [place] [address], Prescriptions/Referrals Prescriptions/Med Rec: New clopidogrel 75 mg Tablet 75 mg PO QDAY 30 Days Qty: 30 0RF aspirin 81 mg tablet 81 mg PO QDAY 30 Days Qty: 30 0RF atorvastatin [Lipitor] 80 mg tablet 80 mg PO QPM 30 Days Qty: 30 0RF sennosides [Senna Lax] 8.6 mg Tablet 8.6 mg PO QDAY PRN (Reason: Constipation) Qty: 30 0RF tamsulosin 0.4 mg Capsule 0.4 mg PO QDAY Qty: 30 0RF amlodipine 10 mg tablet 10 mg PO QDAY 30 Days Qty: 30 1RF carvedilol 3.125 mg Tablet 3.125 mg PO BIDWM 30 Days Qty: 60 0RF fluconazole 200 mg tablet 400 mg PO QDAY 30 Days Qty: 60 2RF lisinopril 40 mg tablet 40 mg PO QDAY 30 Days Qty: 30 0RF Continued metformin 1,000 mg PO BID Jardiance 25 mg tablet 25 mg PO DAILY carbidopa-levodopa 25-100 mg tablet extended release 2 tab PO DAILY omeprazole 40 mg capsule,delayed release(DR/EC) 40 mg PO DAILY mirtazapine 15 mg tablet 7.5 mg PO DAILY Januvia 100 mg tablet 100 mg PO DAILY Discontinued lisinopril 20 mg PO DAILY amlodipine 5 mg tablet 5 mg PO DAILY hydrochlorothiazide 25 mg tablet 25 mg PO DAILY Referrals: No Primary/Family,Physician [Primary Care Provider] Brandon Babb MD [Physician, Neurology] Patient/Caregiver Discharge Instructions Discharge Activity: activity as tolerated Education Materials: Anatomy of the Brain, Discharge Instructions for Stroke Print Language: Bengali Stand Alone Forms: [facility]cca Award Info., Patient Portal Info Letter Discharge Order Discharge Orders: Discharge (Routine); Ordered 08/14/25 Ordered By: Demetrice Conklin Quality Discharge Quality Measures VTE prophylaxis MD Attestestation MD Attestation Patient not discharged on today as expected, please see progress note for 08/08
--- NOTE | 2025-08-08 16:14 | PC.SS ---
Ambulance transport scheduled for 07:00 pm tonight. Awaiting patient to void. laboratory clerk to contact dispatch to cancel transport if patient is unable to void by transport time.
[2025-08-08] MEDS: RINGERS LACTATED 500 ML 500 ML 999 ML IV (20:29)
[2025-08-08] MEDS: ATORVASTATIN CALCIUM 20 MG TABLET 40 MG PO (20:30)
[2025-08-09] VITALS (11 sets, daily range): BP systolic 164–208; BP diastolic 76–109; PULSE 80–110; RESP 10–88; TEMP 36.2–39.4; O2SAT 90–98; BMI 27.7; BMI 27.8
--- NOTE | 2025-08-09 04:15 | PD.RESEVENT ---
Documentation for date of: 08/09/25 Event Note Event Note: Had conversation with family member present with regards to patients Head CT findings.
[2025-08-09] MEDS: LACTULOSE SYRUP 20 GM/30 ML UDC 10 GM PO ×4 (05:37→22:15)
[2025-08-09 05:41] LABS: Basophils # (Auto) 0.0 Thou/mm3 (0.0-0.2); Basophils % (Auto) 0 % (0-2.5); Eosinophils # (Auto) 0.1 Thou/mm3 (0.0-0.5); Eosinophils % (Auto) 1 % (0-10); Hematocrit 34.3 % (41.0-53.0); Hemoglobin 11.9 g/dL (13.5-16.0); Immature Granulocytes Auto 0.04 Thou/mm3 (0.00-0.00); Lymphocytes # (Auto) 1.9 Thou/mm3 (1.0-4.8); Lymphocytes % (Auto) 15 % (10-50); Mean Corpuscular HGB Conc 34.7 g/dl (31.0-37.0); Mean Corpuscular Hemoglobin 31.8 pg (25.0-35.0); Mean Corpuscular Volume 92 fL (80-100); Monocytes # (Auto) 1.2 Thou/mm3 (0.0-0.8); Monocytes % (Auto) 9 % (0-12); Neutrophils # (Auto) 9.5 Thou/mm3 (1.8-7.7); Neutrophils % (Auto) 74 % (37-80); Nucleated Red Blood Cell # 0.00 Thou/mm3 (0.00-0.00); Nucleated Red Blood Cell % 0 /100 WBC (0); Platelet Count 191 Thou/mm3 (140-440); RDW Standard Deviation 42.5 fL (35.1-43.9); Red Blood Count 3.74 Miln/mm3 (4.50-5.90); White Blood Count 12.9 Thou/mm3 (3.8-10.6)
[2025-08-09 06:25] LABS: Alanine Aminotransferase 10 U/L (10-49); Albumin, Serum 3.5 gm/dL (3.4-4.8); Albumin/Globulin Ratio 1.5 (1.2-2.2); Alkaline Phosphatase 48 U/L (46-116); Anion Gap 9 (7-16); Aspartate Amino Transferase 15 U/L (0-34); BUN/Creatinine Ratio 19 Ratio (12-20); Bilirubin,Total 0.8 mg/dL (0.3-1.2); Blood Urea Nitrogen 13 mg/dL (9-23); Calcium 8.3 mg/dL (8.3-10.6); Calcium (Corrected) 8.7 mg/dL (8.5-10.1); Carbon Dioxide 26.5 mMol/L (20.0-31.0); Chloride 102 mMol/L (98-107); Creatinine (Component) 0.7 mg/dL (0.6-1.3); Estimated Creatinine Clearance 91.2 mL/min (>60); Globulin 2.3 gm/dL (2.3-3.5); Glucose 232 mg/dL (74-106); Magnesium 1.8 mg/dL (1.6-2.6); Osmolality,Calculated 280 (275-295); Phosphorous 2.5 mg/dL (2.4-5.1); Potassium 4.0 mMol/L (3.4-5.1); Sodium 137 mMol/L (136-145); Total Protein 5.8 gm/dL (5.7-8.2); eGFR > 60 See Note
[2025-08-09] MEDS: CLOPIDOGREL BISULFATE 75 MG TABLET PO (08:39)
[2025-08-09] MEDS: ASPIRIN EC 81 MG TABEC PO (08:39)
[2025-08-09] MEDS: INSULIN LISPRO (AdmeLOG) 1 UNIT/0.01 ML UNIT 5 UNIT SC (08:41)
[2025-08-09] MEDS: TAMSULOSIN HCL 0.4 MG CAPSULE PO (10:07)
[2025-08-09] MEDS: INSULIN LISPRO (AdmeLOG) 1 UNIT/0.01 ML UNIT SC ×3 (11:56→22:11)
--- NOTE | 2025-08-09 12:35 | XR_ITS ---
Examination: Abdomen AP single view Technique: AP portable supine abdomen, single view Exam date and time: August 09, 2025, 1238 hrs. Indications: Constipation abdominal distention this week Comparison: August 06, 2025. Findings: Again noted significantly air distended colon, especially right colon Mild fluid distended small bowel loops No free air The osseous structures are intact Moderate to prominent stool in the rectum Impression: Prominent colonic ileus Moderate to prominent stool in the rectum
--- NOTE | 2025-08-09 15:22 | PC.SS ---
Per [facility] resident Dr. Conklin, the patient was placed on a Whitlock catheter. ALISA called Cadence from [facility], who reported that they can take the patient with a Whitlock. ALISA f/u with Dr. Conklin; however, the patient is now pending a BM. Per Dr. Conklin, the family reported the patient's last BM was two weeks ago; the doctor started the patient on lactulose and ordered a KUB. ALISA updated Cadence from [facility] via VM.
[2025-08-09] MEDS: LABETALOL INJ 5 MG/ML VIAL 20 ML 10 MG IVP (15:53)
--- NOTE | 2025-08-09 16:05 | PD.RESPRO ---
Documentation for date of: 08/09/25 No overnight events. Patient failed discharge as patient has been unable to void after Greene cather removed. Repeat bladder scan showed >300 cc of urine. Greene catheter was resumed. Bladder train patient. Previous CT scans noted for enlarged prostated. Flomax started. [facility] willing to accept patient with greene and recommendations to follow with urology as outpatient. KUB ordered. Fleet Enema ordered. - The patient's plan was discussed with attending Dr. Kacey Conklin MD PGY2 Internal Medicine Subjective Subjective Interval history: No overnight events. Patient was examined at bedside; he appears much the same as yesterday with his sister at bedside feeding him breakfast. Labs today significant for BP 164/81, FSBG 246, WBC 11.4 -> 12.9, Hgb 11.9, and fasting glucose 232. On physical exam, he remains dysarthric and unable to smile with continued left-sided hemiparesis of UE and LE. He has not been able to urinate after his Greene catheter was removed and bladder scan showed 480 mL of retained urine. According to sister, he has also not had a BM for over 3 weeks. Current disposition remains to transfer patient to [facility] (anticipate discharge tomorrow). Updates to Plan: -Restarted Greene catheter -Started PO tamsulosin 0.4 mg qD -Ordered KUB which showed prominent colonic ileus and moderate to prominent stool in the rectum -Ordered bowel regimen (patient was able to make a BM later) -Started PO amlodipine 5 mg HS -Increased PO lisinopril 10 mg qD to 20 mg qD -Stopped IV Protonix 40 mg qD Exam Vital Signs Temp Pulse Resp BP Pulse Ox O2 Del Method 98.7 F 103 H 28 H 208/109 H 96 Room Air 08/09/25 12:00 08/09/25 15:53 08/09/25 12:00 08/09/25 15:53 08/09/25 12:00 08/09/25 12:00 Narrative Exam GENERAL APPEARANCE: AOx3. NAD, unable to move left hemisphere of body, slurring words HEENT: Normocephalic atraumatic, L side facial droop and numbness neck is supple. Lids/conjunctiva normal. Mucous membranes moist, nares normal, lips/teeth normal uvula midline without oral pharyngeal erythema, exudate or swelling TMs normal bilaterally. No lymphangitis/lymphedema. CARDIAC: Regular rate and rhythm, S1+S2 heard. No murmurs, rubs, or gallops noted RESPIRATORY: respiratory effort normal, no tripod positioning, no accessory muscle use. Lungs clear to auscultation without rhonchi, wheezes, rales ABDOMINAL: NBS. Soft, ND/NT. No evidence of fluid wave. No pulsatile masses on exam, rebound tenderness, Acosta sign or pain over Mcburney's point. MUSCLES/EXTREMITIES: No abnormal range of motion on R side. L-sided paralysis DERM: Warm, pink and dry. No rashes, dermatoses, petechiae or lesions. NEUROLOGICAL: Speech is slurred. Normal level of consciousness. Unable to assess gait and coordination. 5/5 strength in Left sided extremities, 0/5 R sided extremities. Objective Labs 08/10/25 06:54 08/10/25 06:54 Labs: Laboratory Results - last 24 hr 08/09/25 05:15 WBC 12.9 H RBC 3.74 L Hgb 11.9 L Hct 34.3 L MCV 92 MCH 31.8 MCHC 34.7 RDW Std Deviation 42.5 Plt Count 191 Neut % (Auto) 74 Lymph % (Auto) 15 [place] % (Auto) 9 Eos % (Auto) 1 Baso % (Auto) 0 Neut # (Auto) 9.5 H Lymph # (Auto) 1.9 [place] # (Auto) 1.2 H Eos # (Auto) 0.1 Baso # (Auto) 0.0 Immature Gran # (Auto) 0.04 H Absolute Nucleated RBC 0.00 Immature Gran % 0 Nucleated RBC % 0 Sodium 137 Potassium 4.0 D Chloride 102 Carbon Dioxide 26.5 Anion Gap 9 BUN 13 Creatinine 0.7 Estim Creat Clear Calc 91.2 eGFR > 60 BUN/Creatinine Ratio 19 Glucose 232 H Calculated Osmolality 280 Calcium 8.3 Corrected Calcium 8.7 Phosphorus 2.5 Magnesium 1.8 Total Bilirubin 0.8 AST 15 ALT 10 Alkaline Phosphatase 48 Total Protein 5.8 Albumin 3.5 Globulin 2.3 Albumin/Globulin Ratio 1.5 Quality Measures Quality Measures VTE prophylaxis Advance care planning discussed with:: patient Assessment & Plan Assessment Current Active Medications: Generic Name Dose Route Start Last Admin Trade Name Freq PRN Reason Stop Dose Admin Amlodipine Besylate 5 mg 08/09/25 21:00 Amlodipine Besylate 5 Mg Tablet PO 09/08/25 20:59 HS ANALIA Aspirin 81 mg 08/08/25 09:00 08/09/25 08:39 Aspirin Ec 81 Mg Tabec PO 09/07/25 08:59 81 mg QDAY ANALIA Administration Atorvastatin Calcium 40 mg 08/08/25 21:00 08/08/25 20:30 Atorvastatin Calcium 20 Mg Tablet PO 09/07/25 20:59 40 mg HS ANALIA Administration Clopidogrel Bisulfate 75 mg 08/08/25 09:00 08/09/25 08:39 Clopidogrel Bisulfate 75 Mg Tablet PO 09/07/25 08:59 75 mg QDAY ANALIA Administration Dextrose 25 ml 08/09/25 07:33 Dextrose 50%-Water Inj 50 Ml Syringe IV 09/08/25 07:32 Q15MIN PRN BG 50-70 responsive npo pt Dextrose 50 ml 08/09/25 07:33 Dextrose 50%-Water Inj 50 Ml Syringe IV 09/08/25 07:32 Q15MIN PRN BG <50 OR BG <70 & pt unresponsive Glucagon 1 mg 08/07/25 20:18 Glucagon Inj 1 Mg Vial IM Q15MIN PRN BG <70, and no IV access Insulin Human Lispro 0 unit 08/09/25 11:30 08/09/25 11:56 Insulin Lispro (Admelog) 1 Unit/0.01 Ml Unit SC 09/08/25 11:29 5 unit ACHS ANALIA Administration Protocol Labetalol HCl 10 mg 08/09/25 15:47 08/09/25 15:53 Labetalol Inj 5 Mg/Ml Vial 20 Ml IVP 09/08/25 15:46 10 mg Q6HR PRN Administration Hypertension Lactulose 10 gm 08/08/25 12:00 08/09/25 11:56 Lactulose Syrup 20 Gm/30 Ml Udc PO 09/07/25 11:59 10 gm QID ANALIA Administration Protocol Lisinopril 20 mg 08/09/25 09:00 08/09/25 08:39 Lisinopril 20 Mg Tablet PO 09/08/25 08:59 20 mg QDAY ANALIA Administration Sennosides 1 tab 08/07/25 15:44 08/09/25 10:07 Senna Tablet PO 09/06/25 15:43 1 tab QDAY PRN Administration CONSTIPATION Protocol Tamsulosin HCl 0.4 mg 08/09/25 09:45 08/09/25 10:07 Tamsulosin Hcl 0.4 Mg Capsule PO 09/08/25 09:44 0.4 mg QDAY ANALIA Administration Plan Patient is a 75-year-old male with past medical history significant for NIDDM type II, history of CVA with left-sided deficits and ambulates with a walker at baseline and primary hypertension who presented with new onset acute left-sided weakness and numbness. Patient was admitted for stroke workup. #Acute CVA #SORAYA/MCA occlusion #History of multiple CVAs since 2020 Presenting with acute left-sided deficit, last sensation in addition to left facial droop. Outside the window for tPA. Head CT was negative for acute hemorrhage, mass effect or midline shift. Head/neck CTA showed 60% stenosis of proximal left internal carotid artery, 50% stenosis proximal right internal carotid artery, 90% stenosis junction P1 P2 segments right posterior cerebral artery, 80% stenosis P1 segment left posterior cerebral artery, 80% stenosis proximal M1 segment left middle cerebral artery, No cerebral large vessel arterial occlusions. Repeat Head/Neck CTA showed occlusion of the A2 and A3 segments of the right anterior cerebral artery, with reconstitution in the A4 segment, as well as occlusion of the M2, M3, and M4 segments of the right middle cerebral artery. Vitals on presentation showed BP 184/104, HR 105, afebrile. Teleneurology was consulted. Recommendations as below: ? Seizure precaution ? Head elevation >30 degrees ? Permissive hypertension ? Continue LABETALOL 10 mg for BP >220/120 ? Continue TYLENOL for fever ? Continue ASPIRIN 81 mg daily (continue for 21 days total, started ? Continue PLAVIX 75 mg daily ?Bedside swallow eval complete, recommend: pureed diet, moderate oral dysphagia ?PT evaluation complete - Lipids -> Cholesterol: 172, Triglycerides: 85, LDL: 95, HDL: 60 - TSH: 0.92 - A1C: 7.8 Pulmonary Embolism On CTA acute pulmonary embolism is noted involving the segmental branches of the right upper lobe pulmonary artery, which was only partially imaged. Nonemergent follow-up with a CT pulmonary angiogram is recommended. Plan: -Family declined operative treatment -No anticoagulation due to large vessel occlusion and risk of hemorrhagic conversion #Urinary retention He has not been able to urinate after his Greene catheter was removed and bladder scan showed 480 mL of retained urine today Plan: -Restarted Greene catheter -Started PO tamsulosin 0.4 mg qD #Constipation (resolved) Per sister, patient has not had a BM for 3 weeks No reports of abdominal pain and no abdominal distension noted on physical exam, bowel sounds present 08/09 KUB showed prominent colonic ileus and moderate to prominent stool in the rectum Plan: -Ordered bowel regimen (patient was able to make a BM later) Acute cystitis Patient started on Ceftriaxone Ucx (no growth) and Bcx ([id number] 2/2) HTN History of hypertension, BP elevated on presentation as above, likely in setting of stroke. ? LABETALOL on board as above. -Increased PO lisinopril 10 mg qD to 20 mg qD -Started PO amlodipine 5 mg HS T2DM GLUCOSE slightly elevated. A1c: 7.8. ? INSULIN sliding scale ? Accu-Cheks Health maintenance Diet: Carbohydrate Consistent (Mildly Thick Level 2, Dysphagia 1 Pureed) GI prophylaxis: None (stopped IV Protonix today) DVT prophylaxis: SubQ HEPARIN Antibiotics: Not indicated CODE STATUS: Full code Disposition: Plan to discharge within the next 24 hours to SNF ([facility]) Case was discussed with attending physician, Dr. Erazo, and supervising resident Dr. Conklin. Femi Mckeon, DO Internal Medicine, PGY-1 Attending Provider Attestation/Addendum Patient seen and examined with resident physician Dr. Mckeon/ Dr. conklin. Note reviewed, agree with findings and recommendations. Patient is still constipated. Fleets enema, GoLytely, KUB ordered. Not ready for rehab yet.
--- NOTE | 2025-08-09 17:58 | XR_ITS ---
Examination: AP chest single view Technique one AP portable semiupright chest single view Date and time: August 09, 2025, 1809 hrs., Comparison August 06, 2025 Indications: Hypoxia today. Findings: Mild CHF Mild enlargement cardiac contour. Prominent vascular congestion including central vascular engorgement. Early edema in the lung hernández Impression: Mild CHF
--- NOTE | 2025-08-09 17:58 | PC.NURSE ---
patient oxygen sats-84% on room air , patient breathing 35% , called dr. ha and made aware, placed on 4 liters nc with o2sats 90% , ordered aBG AND PCXR.
[2025-08-09 18:15] LABS: Base Excess 3 (-3-3); HCO3 25 mEq/L (20-26); Inspired Oxygen, FIO2 21 %; O2 Saturation 92 % (91-98); PCO2 32 mmHg (32.0-48.0); pH, Arterial 7.51 (7.35-7.45)
[2025-08-09 18:17] LABS: Allen Test Performed/OK; Puncture Site Right Radial
[2025-08-09 18:19] LABS: PO2 55 mmHg (83-108)
[2025-08-09] MEDS: INSULIN DEGLUDEC 5 UNIT/0.05 ML (PER 5 UNITS) 2 UNIT SC (22:11)
[2025-08-09] MEDS: ATORVASTATIN CALCIUM 20 MG TABLET 40 MG PO (22:15)
--- NOTE | 2025-08-09 22:39 | PD.NEUROPROG ---
Documentation for date of: 08/09/25 Subjective Subjective Interval history: Patient was seen in telemetry today with his sister at the bedside, continues to have dense left hemiplegia, dysarthria and hemineglect. His O2 saturation went down and he needed to be on 4 L of oxygen today. Exam - Neurology Vital Signs Temp Pulse Resp BP Pulse Ox O2 Del Method O2 Flow Rate 99.7 F 108 H 10 L 196/103 H 95 Room Air 3 08/09/25 20:00 08/09/25 22:14 08/09/25 20:00 08/09/25 22:14 08/09/25 20:00 08/09/25 12:00 08/09/25 18:27 Narrative Exam GENERAL APPEARANCE: Well hydrated, well-nourished in no acute distress. HEENT: Normocephalic, atraumatic, extraocular movements intact. Pupils: Equal reacting to light NECK: Supple, no JVD or bruits. CARDIOVASULAR: Heart: S1, S2 heard, regular without S3-S4 or murmur no rubs or gallops. LUNGS/CHEST: Clear to auscultation bilaterally. No rails, rhonchi, or wheezing. Normal inspection. ABDOMEN: Soft, nontender, with normal bowel sounds. No pulsatile masses. No rebound, rigidity, or guarding. Normal inspection and palpation. EXTREMITIES: Normal inspection and palpation. No edema, clubbing or cyanosis. SKIN: Warm and dry without rashes. Normal inspection. MUSCULOSKELETAL: No cervical, thoracic, lumbar or midline bony tenderness. Normal inspection. NEURO: Alert, awake and oriented x1. Cranial nerves: II through XII grossly intact with the exception of left facial weakness of upper motor neuron type. Speech and language: Significant dysarthria Motor system: Tone and bulk: Normal: Strength: Moves right upper and lower extremities with good strength 5/5, dense left hemiplegia. Deep tendon reflexes: 2+ bilaterally symmetrical. Plantar reflex: Downgoing bilaterally. Sensory system: Impaired to all modalities with sensation on the left. Rest of exam: Limited no signs of meningeal irritation noted. PSYCHIATRIC: Normal mood and affect. Objective Labs 08/09/25 05:15 08/09/25 05:15 Labs: Laboratory Results - last 24 hr 08/09/25 08/09/25 05:15 18:09 WBC 12.9 H RBC 3.74 L Hgb 11.9 L Hct 34.3 L MCV 92 MCH 31.8 MCHC 34.7 RDW Std Deviation 42.5 Plt Count 191 Neut % (Auto) 74 Lymph % (Auto) 15 [place] % (Auto) 9 Eos % (Auto) 1 Baso % (Auto) 0 Neut # (Auto) 9.5 H Lymph # (Auto) 1.9 [place] # (Auto) 1.2 H Eos # (Auto) 0.1 Baso # (Auto) 0.0 Immature Gran # (Auto) 0.04 H Absolute Nucleated RBC 0.00 Immature Gran % 0 Nucleated RBC % 0 Puncture Site Right Radial ABG pH 7.51 H ABG pCO2 32 ABG pO2 55 L* ABG HCO3 25 ABG O2 Saturation 92 ABG Base Excess 3 FiO2 21 Sodium 137 Potassium 4.0 D Chloride 102 Carbon Dioxide 26.5 Anion Gap 9 BUN 13 Creatinine 0.7 Estim Creat Clear Calc 91.2 eGFR > 60 BUN/Creatinine Ratio 19 Glucose 232 H Calculated Osmolality 280 Calcium 8.3 Corrected Calcium 8.7 Phosphorus 2.5 Magnesium 1.8 Total Bilirubin 0.8 AST 15 ALT 10 Alkaline Phosphatase 48 Total Protein 5.8 Albumin 3.5 Globulin 2.3 Albumin/Globulin Ratio 1.5 ABG Interpretation ABG results: 08/09/25 18:09 ABG pH 7.51 H ABG pCO2 32 ABG pO2 55 L* ABG HCO3 25 ABG O2 Saturation 92 ABG Base Excess 3 Assessment & Plan Assessment and plan (1) Cerebrovascular accident: Status: Acute Assessment and plan: With dense left hemiplegia dysarthria and hemineglect. CT head showed right frontal hypodensity with the ipsilateral left ventricular dilatation. Continue with aspirin, Plavix and statin Waiting for placement for rehab. (2) Hypertension: Status: Chronic Assessment and plan: Needs aggressive blood pressure management (3) Type 2 diabetes mellitus: Status: Chronic Assessment and plan: A1c: 7.8, needs better control continue check fingerstick glucose and follow sliding's insulin per protocol
[2025-08-09] MEDS: ACETAMINOPHEN 325 MG TABLET 650 MG PO (23:05)
[2025-08-10] VITALS (14 sets, daily range): BP systolic 145–199; BP diastolic 65–94; PULSE 83–101; RESP 16–95; TEMP 36.1–38.8; O2SAT 94–97
[2025-08-10] MEDS: LACTULOSE SYRUP 20 GM/30 ML UDC 10 GM PO (06:13)
[2025-08-10 07:08] LABS: Basophils # (Auto) 0.1 Thou/mm3 (0.0-0.2); Basophils % (Auto) 0 % (0-2.5); Eosinophils # (Auto) 0.1 Thou/mm3 (0.0-0.5); Eosinophils % (Auto) 0 % (0-10); Hematocrit 35.2 % (41.0-53.0); Hemoglobin 12.2 g/dL (13.5-16.0); Immature Granulocytes Auto 0.06 Thou/mm3 (0.00-0.00); Lymphocytes # (Auto) 2.0 Thou/mm3 (1.0-4.8); Lymphocytes % (Auto) 14 % (10-50); Mean Corpuscular HGB Conc 34.7 g/dl (31.0-37.0); Mean Corpuscular Hemoglobin 31.9 pg (25.0-35.0); Mean Corpuscular Volume 92 fL (80-100); Monocytes # (Auto) 1.2 Thou/mm3 (0.0-0.8); Monocytes % (Auto) 9 % (0-12); Neutrophils # (Auto) 11.0 Thou/mm3 (1.8-7.7); Neutrophils % (Auto) 77 % (37-80); Nucleated Red Blood Cell # 0.00 Thou/mm3 (0.00-0.00); Nucleated Red Blood Cell % 0 /100 WBC (0); Platelet Count 191 Thou/mm3 (140-440); RDW Standard Deviation 42.1 fL (35.1-43.9); Red Blood Count 3.83 Miln/mm3 (4.50-5.90); White Blood Count 14.3 Thou/mm3 (3.8-10.6)
[2025-08-10 07:29] LABS: Alanine Aminotransferase 16 U/L (10-49); Albumin, Serum 3.5 gm/dL (3.4-4.8); Albumin/Globulin Ratio 1.5 (1.2-2.2); Alkaline Phosphatase 50 U/L (46-116); Anion Gap 8 (7-16); Aspartate Amino Transferase 23 U/L (0-34); BUN/Creatinine Ratio 19 Ratio (12-20); Bilirubin,Total 0.9 mg/dL (0.3-1.2); Blood Urea Nitrogen 13 mg/dL (9-23); Calcium 8.5 mg/dL (8.3-10.6); Calcium (Corrected) 8.9 mg/dL (8.5-10.1); Carbon Dioxide 27.7 mMol/L (20.0-31.0); Chloride 100 mMol/L (98-107); Creatinine (Component) 0.7 mg/dL (0.6-1.3); Estimated Creatinine Clearance 81.0 mL/min (>60); Globulin 2.4 gm/dL (2.3-3.5); Glucose 220 mg/dL (74-106); Magnesium 1.7 mg/dL (1.6-2.6); Osmolality,Calculated 279 (275-295); Phosphorous 3.2 mg/dL (2.4-5.1); Potassium 3.7 mMol/L (3.4-5.1); Sodium 136 mMol/L (136-145); Total Protein 5.9 gm/dL (5.7-8.2); eGFR > 60 See Note
[2025-08-10] MEDS: INSULIN LISPRO (AdmeLOG) 1 UNIT/0.01 ML UNIT SC ×4 (07:39→20:46)
[2025-08-10 08:08] LABS: Procalcitonin 0.11 ng/ml (0.0-0.49)
[2025-08-10] MEDS: ASPIRIN EC 81 MG TABEC PO (08:28)
[2025-08-10] MEDS: Magnesium Sulfate 2 GM Ivpb 2 GM/50 ML BAG IV (08:29)
[2025-08-10] MEDS: CLOPIDOGREL BISULFATE 75 MG TABLET PO (08:29)
--- NOTE | 2025-08-10 09:21 | PC.SS ---
dry cure worker (ALISA) received a message regarding the patient's sister, Layla, , wanting to speak to SS. SW spoke to Layla and answered her questions. Per the [facility] resident this morning, the patient has a fever and is not likely will d/c today; SW updated Layla with that information. SW confirmed with Layla that the discharge plan is long-term placement at [facility]; Layla was agreeable?no further questions.
[2025-08-10 09:31] LABS: Collection Type, Urine Catheter; Squamous Epithelial Cell,Urine 0 /hpf (0-5)
[2025-08-10] MEDS: LACTULOSE SYRUP 20 GM/30 ML UDC PO ×2 (09:44→20:44)
--- NOTE | 2025-08-10 09:54 | ESPR_ITS ---
<Statement entered by Pavan Wilder MD - 08/17/25 12:09> I reviewed above note and agree with findings and plans. I have also personally examined the patient with medicine team and went over assessment and plan with medical team including sports intern and resident physician. <Statement entered by Ambrosio Gamez MD - 08/10/25 15:35> I saw and examined patient personally and supervised PGY 1 resident, Dr. Mckeon with formulating a management plan. I agree with the documentation with the exceptions as listed below. Patient is a 75-year-old male with past medical history significant for NIDDM type II, history of CVA with left-sided deficits and ambulates with a walker at baseline and primary hypertension who presented with new onset acute left-sided weakness and numbness. Patient was admitted for stroke workup. Problem list: 1. Acute ischemic stroke with right SORAYA and MCA occlusion 2. History of CVA with residual left-sided deficits 3. Acute pulmonary embolism 4. Neurogenic bladder s/p Whitlock catheter 5. UTI 6. NIDDM type II Patient presented with new onset left-sided weakness and was found to have large vessel occlusion of MCA and SORAYA on the right. Initially patient was accepted to [facility] for thrombectomy, however patient refused transfer at that time. Patient is now out of the window for mechanical thrombectomy. He will continue aspirin, Plavix and statin as per neurology recommendations. With regards to patient's acute pulmonary embolism, patient and family refused any anticoagulation. Will appliance counselor again tomorrow. Overnight patient had a temperature spike of 103F. Urinalysis today was significant for leukocyte esterase positive and 12 WBC. Blood cultures pending. Started on ceftriaxone 1 g IV daily. Once afebrile for >24 hours, anticipate discharge to [facility] [patient already accepted.] Plan of care discussed with Attending Dr. Meño Gamez MD PGY 2 Disclaimer: This note was dictated by speech recognition. Minor errors in defence intelligence analyst may be present due to voice recognition software. Documentation for date of: 08/10/25 Subjective Subjective Interval history: Overnight, patient spiked a fever of 103 degrees @ 23:05. Patient was examined at bedside; he is laying supine with head of bed elevated while being fed breakfast by his sister. Labs today significant for BP 152/65, FSBG 258, WBC 12.9 -> 14.3, Hgb 11.9 -> 12.2, blood glucose 220, and magnesium 1.7 (given IV magnesium 2 mg). On physical exam, diffuse bibasilar crackles of posterior lung hernández were appreciated on auscultation but otherwise unchanged from yesterday. Patient was noted to have urine output via Whitlock catheter and also a BM x 1 early this morning. Updates to Plan: -Fever of unknown etiology work-up: 1. Ordered UCx 2. Ordered BCx 3. Repeat CXR -Ordered head CT to guide anticoagulation management -Per neurology recommendations, consider discharging patient on either Lovenox or combination of aspirin + Plavix Exam Vital Signs Temp Pulse Resp BP Pulse Ox O2 Del Method O2 Flow Rate 98.7 F 99 16 159/79 H 97 Room Air 2 08/10/25 08:00 08/10/25 08:29 08/10/25 08:00 08/10/25 08:29 08/10/25 08:00 08/10/25 08:00 08/10/25 00:00 Narrative Exam GENERAL APPEARANCE: AOx3. NAD, unable to move left hemisphere of body, slurring words HEENT: Normocephalic atraumatic, L side facial droop and numbness neck is supple. Lids/conjunctiva normal. Mucous membranes moist, nares normal. CARDIAC: Regular rate and rhythm, S1+S2 heard. No murmurs, rubs, or gallops noted RESPIRATORY: Diffuse bibasilar crackles of posterior lung hernández were appreciated on auscultation. Respiratory effort normal, no tripod positioning, no accessory muscle use. ABDOMINAL: NBS. Soft, ND/NT. No evidence of fluid wave. No pulsatile masses on exam, rebound tenderness, Acosta sign or pain over Mcburney's point. MUSCLES/EXTREMITIES: No abnormal range of motion on R side. L-sided paralysis DERM: Warm, pink and dry. No rashes, dermatoses, petechiae or lesions. NEUROLOGICAL: Speech is slurred. Normal level of consciousness. Unable to assess gait and coordination. 5/5 strength in Left sided extremities, 0/5 R sided extremities. Objective Labs 08/10/25 06:54 08/10/25 06:54 Labs: Laboratory Results - last 24 hr 08/09/25 08/10/25 18:09 06:54 WBC 14.3 H RBC 3.83 L Hgb 12.2 L Hct 35.2 L MCV 92 MCH 31.9 MCHC 34.7 RDW Std Deviation 42.1 Plt Count 191 Neut % (Auto) 77 Lymph % (Auto) 14 Republic % (Auto) 9 Eos % (Auto) 0 Baso % (Auto) 0 Neut # (Auto) 11.0 H Lymph # (Auto) 2.0 Republic # (Auto) 1.2 H Eos # (Auto) 0.1 Baso # (Auto) 0.1 Immature Gran # (Auto) 0.06 H Absolute Nucleated RBC 0.00 Immature Gran % 0 Nucleated RBC % 0 Puncture Site Right Radial ABG pH 7.51 H ABG pCO2 32 ABG pO2 55 L* ABG HCO3 25 ABG O2 Saturation 92 ABG Base Excess 3 FiO2 21 Sodium 136 Potassium 3.7 Chloride 100 Carbon Dioxide 27.7 Anion Gap 8 BUN 13 Creatinine 0.7 Estim Creat Clear Calc 81.0 eGFR > 60 BUN/Creatinine Ratio 19 Glucose 220 H Calculated Osmolality 279 Calcium 8.5 Corrected Calcium 8.9 Phosphorus 3.2 Magnesium 1.7 Total Bilirubin 0.9 AST 23 ALT 16 Alkaline Phosphatase 50 Total Protein 5.9 Albumin 3.5 Globulin 2.4 Albumin/Globulin Ratio 1.5 Procalcitonin 0.11 ABG Interpretation ABG results: 08/09/25 18:09 ABG pH 7.51 H ABG pCO2 32 ABG pO2 55 L* ABG HCO3 25 ABG O2 Saturation 92 ABG Base Excess 3 Quality Measures Quality Measures VTE prophylaxis Advance care planning discussed with:: patient Assessment & Plan Assessment Current Active Medications: Generic Name Dose Route Start Last Admin Trade Name Chanel PRN Reason Stop Dose Admin Acetaminophen 650 mg 08/10/25 07:26 Acetaminophen 325 Mg Tablet PO 09/08/25 22:58 Q4HR PRN Fever >100.3 or Pain 1-3 Amlodipine Besylate 5 mg 08/09/25 21:00 08/09/25 22:14 Amlodipine Besylate 5 Mg Tablet PO 09/08/25 20:59 5 mg HS ANALIA Administration Aspirin 81 mg 08/08/25 09:00 08/10/25 08:28 Aspirin Ec 81 Mg Tabec PO 09/07/25 08:59 81 mg QDAY ANALIA Administration Atorvastatin Calcium 40 mg 08/08/25 21:00 08/09/25 22:15 Atorvastatin Calcium 20 Mg Tablet PO 09/07/25 20:59 40 mg HS ANALIA Administration Clopidogrel Bisulfate 75 mg 08/08/25 09:00 08/10/25 08:29 Clopidogrel Bisulfate 75 Mg Tablet PO 09/07/25 08:59 75 mg QDAY ANALIA Administration Dextrose 25 ml 08/09/25 07:33 Dextrose 50%-Water Inj 50 Ml Syringe IV 09/08/25 07:32 Q15MIN PRN BG 50-70 responsive npo pt Dextrose 50 ml 08/09/25 07:33 Dextrose 50%-Water Inj 50 Ml Syringe IV 09/08/25 07:32 Q15MIN PRN BG <50 OR BG <70 & pt unresponsive Glucagon 1 mg 08/07/25 20:18 Glucagon Inj 1 Mg Vial IM Q15MIN PRN BG <70, and no IV access Insulin Degludec 2 unit 08/09/25 21:00 08/09/25 22:11 Insulin Degludec 5 Unit/0.05 Ml (Per 5 Units) SC 09/08/25 20:59 2 unit HS ANALIA Administration Insulin Human Lispro 0 unit 08/09/25 11:30 08/10/25 07:39 Insulin Lispro (Admelog) 1 Unit/0.01 Ml Unit SC 09/08/25 11:29 5 unit ACHS ANALIA Administration Protocol Labetalol HCl 10 mg 08/09/25 15:47 08/09/25 15:53 Labetalol Inj 5 Mg/Ml Vial 20 Ml IVP 09/08/25 15:46 10 mg Q6HR PRN Administration Hypertension Lactulose 20 gm 08/10/25 09:30 08/10/25 09:44 Lactulose Syrup 20 Gm/30 Ml Udc PO 09/09/25 09:29 20 gm BID ANALIA Administration Protocol Lisinopril 20 mg 08/09/25 09:00 08/10/25 08:29 Lisinopril 20 Mg Tablet PO 09/08/25 08:59 20 mg QDAY ANALIA Administration Sennosides 1 tab 08/10/25 09:30 08/10/25 09:44 Senna Tablet PO 09/09/25 09:29 1 tab QDAY ANALIA Administration Protocol Tamsulosin HCl 0.4 mg 08/10/25 21:00 Tamsulosin Hcl 0.4 Mg Capsule PO 09/09/25 20:59 HS ANALIA Plan Patient is a 75-year-old male with past medical history significant for NIDDM type II, history of CVA with left-sided deficits and ambulates with a walker at baseline and primary hypertension who presented with new onset acute left-sided weakness and numbness. Patient was admitted for stroke workup. #Fever, etiology currently unclear 103 fever @ 23:05 on 08/09/25, WBC 12.9 -> 14.3 08/09 CXR negative for pneumonia DDx: infectious (patient is high-risk for aspiration pneumonia), stroke-related Rx: -Ordered UCx -Ordered BCx -Repeat CXR #Acute ischemic stroke w/ SORAYA and right MCA occlusion #History of multiple CVAs since 2020 Presenting with acute left-sided deficit, last sensation in addition to left facial droop. Outside the window for tPA. Head CT was negative for acute hemorrhage, mass effect or midline shift. Head/neck CTA showed 60% stenosis of proximal left internal carotid artery, 50% stenosis proximal right internal carotid artery, 90% stenosis junction P1 P2 segments right posterior cerebral artery, 80% stenosis P1 segment left posterior cerebral artery, 80% stenosis proximal M1 segment left middle cerebral artery, No cerebral large vessel arterial occlusions. Repeat Head/Neck CTA showed occlusion of the A2 and A3 segments of the right anterior cerebral artery, with reconstitution in the A4 segment, as well as occlusion of the M2, M3, and M4 segments of the right middle cerebral artery. Vitals on presentation showed BP 184/104, HR 105, afebrile. Teleneurology was consulted. Recommendations as below: ? Seizure precaution ? Head elevation >30 degrees ? Permissive hypertension ? Continue LABETALOL 10 mg for BP >220/120 ? Continue TYLENOL for fever ? Continue ASPIRIN 81 mg daily (continue for 21 days total, started 08/07) ? Continue PLAVIX 75 mg daily -Per neurology, based on 08/[address] showing interval large acute nonhemorrhagic infarct of right middle cerebral artery distribution, consider d/cing aspirin and Plavix in favor of Lovenox for anticoagulation ?Bedside swallow eval complete, recommend: pureed diet, moderate oral dysphagia ?PT evaluation complete - Lipids -> Cholesterol: 172, Triglycerides: 85, LDL: 95, HDL: 60 - TSH: 0.92 - A1C: 7.8 Pulmonary Embolism On CTA acute pulmonary embolism is noted involving the segmental branches of the right upper lobe pulmonary artery, which was only partially imaged. Non-emergent follow-up with a CT pulmonary angiogram is recommended. Plan: -Family declined operative treatment -Per neurology, based on 08/[address] showing interval large acute nonhemorrhagic infarct of right middle cerebral artery distribution, consider d/cing aspirin and Plavix in favor of Lovenox for anticoagulation #Urinary retention (resolved) Had been unable to urinate after his Whitlock catheter was removed and bladder scan showed 480 mL of retained urine on 08/09 Now back on Whitlock catheter Plan: -Continue PO tamsulosin 0.4 mg qD #Constipation (resolved) Per sister, patient has not had a BM for 3 weeks No reports of abdominal pain and no abdominal distension noted on physical exam, bowel sounds present 08/09 KUB showed prominent colonic ileus and moderate to prominent stool in the rectum 08/10 BM x 1 Plan: -Continue bowel regimen as appropriate Acute cystitis vs. sterile pyuria (resolved) Originally started on ceftriaxone, currently not receiving antibiotics UCx (no growth) and BCx ([id number] 2/2) HTN History of hypertension, BP elevated on presentation as above, likely in setting of stroke. ? LABETALOL on board as above. -Continue PO lisinopril 20 mg qD -Increased PO amlodipine from 5 mg HS to 10 mg HS RRx: -Today's BP elevated with systolic BP approaching 180s T2DM GLUCOSE slightly elevated. A1c: 7.8. ? INSULIN sliding scale ? Accu-Chek Health maintenance Diet: Carbohydrate Consistent (Mildly Thick Level 2, Dysphagia 1 Pureed) GI prophylaxis: None DVT prophylaxis: SubQ HEPARIN Antibiotics: Not indicated CODE STATUS: Full code Disposition: Plan to discharge within the next 24 hours to SNF ([facility]) Case was discussed with attending physician, Dr. Wilder, and supervising resident, Dr. Gamez. Femi Mckeon, DO Internal Medicine, PGY-1
[2025-08-10] MEDS: RINGERS LACTATED 500 ML 500 ML 999 ML IV (10:12)
--- NOTE | 2025-08-10 10:16 | XR_ITS ---
Examination: AP chest single view Technique one AP semiupright portable chest single view Date and time: August 10, 2025, 10:51 AM, comparison August 09, 2025 Indications: Shortness of breath this week. Findings: Mild CHF Mild to moderate enlargement left ventricle. Prominent vascular congestion with early perihilar edema Prominent osteopenia Impression: Mild CHF
--- NOTE | 2025-08-10 10:24 | XR_ITS ---
Examination: CT brain head without contrast. 2-D sagittal coronal reconstructions Date and time of exam:August 10, 2025, 1139 hrs., Comparison August 07, 2025 Indications: Onset left-sided body weakness today, stroke alert August 07, 2025 CTDI: vol (mGy):59.1 DLP: (mGycm):1237 Technique: Multiple CT axial sections of the brain have been obtained, 5 mm slice thickness. Contrast has not been administered. 2-D sagittal, coronal reconstructions have been obtained Low dose protocols were performed. One or more of the following dose reduction techniques were used; automated exposure control, adjustment of the mA and/or KV according to patient size, use of iterative reconstruction technique. Findings: Interval large acute nonhemorrhagic infarct right middle cerebral artery distribution No shift of the frontal horns to the left Fourth ventricle midline Cranial vault intact Impression: Interval large acute nonhemorrhagic infarct right middle cerebral artery distribution
[2025-08-10 10:44] LABS: Bilirubin,Urine Negative (Negative); Blood,Urine 3+ (Negative); Clarity,Urine Turbid (Clear/Hazy); Color,Urine Yellow (Lt Yel-Yel); Glucose, Urine 4+ (Negative); Ketones,Urine Negative (Negative); Nitrite,Urine Negative (Negative); PH,Urine 5.5 (5.0-7.0); Protein,Urine 1+ (Neg - Trace); RBC,Urine 155 /hpf (0-3); Specific Gravity,Urine 1.031 (1.001-1.035); Urobilinogen,Urine Negative mg/dL (0.0-1.0); WBC,Urine 11 /hpf (0-5)
[2025-08-10 11:00] LABS: Culture Indicated,Urine Yes; Leukocyte Esterase,Urine Positive (Negative)
--- NOTE | 2025-08-10 14:31 | PC.SS ---
ALISA follow-up note: Overnight, the patient spiked a fever?possible discharge 08/11/2025 to [facility], after 24hx of monitoring. The patient will need transportation to be set up.
[2025-08-10] MEDS: cefTRIAXone/D5w 1gm IV premix 1 GM/50 ML BAG IV (15:16)
[2025-08-10] MEDS: LABETALOL INJ 5 MG/ML VIAL 20 ML 10 MG IVP ×2 (16:00→21:54)
[2025-08-10] MEDS: ACETAMINOPHEN 325 MG TABLET 650 MG PO (16:00)
[2025-08-10] MEDS: ATORVASTATIN CALCIUM 20 MG TABLET 40 MG PO (20:44)
[2025-08-10] MEDS: INSULIN DEGLUDEC 5 UNIT/0.05 ML (PER 5 UNITS) 2 UNIT SC (20:47)
[2025-08-10] MEDS: TAMSULOSIN HCL 0.4 MG CAPSULE PO (21:55)
[2025-08-11] VITALS (22 sets, daily range): BP systolic 138–188; BP diastolic 62–90; PULSE 81–100; RESP 16–25; TEMP 36.1–38.8; O2SAT 94–98; BMI 25.5; BMI 12.0
[2025-08-11] MEDS: ACETAMINOPHEN 325 MG TABLET 650 MG PO ×2 (00:02→13:20)
[2025-08-11] MEDS: INSULIN LISPRO (AdmeLOG) 1 UNIT/0.01 ML UNIT SC ×4 (07:42→20:37)
--- NOTE | 2025-08-11 08:55 | PC.SS ---
Addendum entered by Lula Herrera 08/11/25 11:02: SS follow up note; SS was contacted by Patient's nurse, Beryl informing SS that Dr. Lainez informed her that patient will not be discharging today due to running a fever last night. SS contacted [place] to cancel transportation. SS updated Cadence from [facility]. Addendum entered by Lula Herrera 08/11/25 09:20: SS was contacted by [employer], ETA will be for [phone]. SS will notify patient's nurse, cadence and patient's sister. Original Note: Patient does not have transportation coverage, Patients sister is unable to provide payment. SS contacted [employer]. [facility] will contact SS with ETA. SS updated patient's nurseBeryl and Cadence from [facility].
[2025-08-11] MEDS: ASPIRIN EC 81 MG TABEC PO (10:18)
[2025-08-11] MEDS: LACTULOSE SYRUP 20 GM/30 ML UDC PO ×2 (10:18→20:39)
[2025-08-11] MEDS: cefTRIAXone/D5w 1gm IV premix 1 GM/50 ML BAG IV (10:24)
[2025-08-11] MEDS: CLOPIDOGREL BISULFATE 75 MG TABLET PO (10:24)
--- NOTE | 2025-08-11 10:35 | PC.NURSE ---
Per Dr. Lopez, patient will be discharged with Whitlock catheter in place.
--- NOTE | 2025-08-11 10:36 | ESPR_ITS ---
Subjective Subjective Interval history: asked to see today. cxr static but looks like radiology feels it is chf and primary team puts lots of wt on radiology opinion. Exam Vital Signs Temp Pulse Resp BP Pulse Ox O2 Del Method O2 Flow Rate 97.0 F 94 19 180/79 H 94 L Room Air 2 08/11/25 07:54 08/11/25 10:23 08/11/25 07:54 08/11/25 10:23 08/11/25 07:54 08/11/25 07:54 08/10/25 00:00 Narrative Exam no O2 need noted. so doubt pneumonia. Objective - Internal Medicine Labs 08/10/25 06:54 08/10/25 06:54 Labs: Laboratory Results - last 24 hr 08/10/25 09:17 Ur Collection Type Catheter Urine Color Yellow Urine Clarity Turbid A Urine pH 5.5 Ur Specific [place] 1.031 Urine Protein 1+ A Urine Glucose (UA) 4+ A Urine Ketones Negative Urine Blood 3+ A Urine Nitrite Negative Urine Bilirubin Negative Urine Urobilinogen (Auto) Negative Ur Leukocyte Esterase Positive Urine RBC 155 H Urine WBC 11 H Ur Squamous Epith Cells 0 Urine Bacteria None Ur Culture Indicated? Yes ABG Interpretation ABG results: 08/09/25 18:09 ABG pH 7.51 H ABG pCO2 32 ABG pO2 55 L* ABG HCO3 25 ABG O2 Saturation 92 ABG Base Excess 3 Assessment & Plan A&P Narrative new fever without cxr changes or significant ua changes noted so may be viral value of county viral panel low. will try changing abx to po and f/u wed pm if still here Time Spent With Patient Time: Total time spent is greater than 50% in coordination of care (as documented) at patient's floor/unit and/or counseling patient:
--- NOTE | 2025-08-11 10:44 | ESCONSULT_ITS ---
<Statement entered by Ruben Lainez MD - 08/18/25 11:49> pt seen with resident. all findings confirmed. see additional notes for details HPI Data of Consult Requesting Physician: Tony Erazo MD Admitting Provider: Debi Cortez MD Attending Provider: Tony Erazo MD Primary Care Provider: Physician No Primary/Family Consult Narrative Reason for consult: Recurrent fevers History of present illness: Patient is a 75-year-old male with past medical history significant for diabetes, hypertension, previous CVA in 2020 who presented to the ED with acute left-sided weakness and numbness. Patient is currently treated for acute ischemic stroke due to SORAYA and right MCA occlusion patient also noted to have pulmonary embolism on CTA, however family declined operative treatment. Patient currently denies any complaints at this time other than his difficulty in swallowing and left-sided weakness. ID was consulted due to patient's continual spiking fevers despite chest x-ray being clear and urinalysis negative for UTI. Patient's recent fever was noticed at 12 AM this morning. Patient since has been afebrile and currently on IV antibiotics. Primary team ordered cocci level. Medical history: As mentioned above Past surgical history: Medications: Metformin and lisinopril Allergies: NKDA Family history: Noncontributory Social history: Patient denies any alcohol, drug or tobacco use. Patient currently lives with his sister. cc:: cc: Tony Erazo MD Review of Systems Review of Systems Systems Reviewed: All systems reviewed, normal except as documented Exam Vital Signs Temp Pulse Resp BP Pulse Ox O2 Del Method O2 Flow Rate 97.0 F 94 19 180/79 H 94 L Room Air 2 08/11/25 07:54 08/11/25 10:23 08/11/25 07:54 08/11/25 10:23 08/11/25 07:54 08/11/25 07:54 08/10/25 00:00 Narrative Exam General Appearance: Pt is an elderly male, left hemiplegia seen eating some difficulty. Patient able to answer most questions. HEENT: NC/AT, no scleral icterus, no conjunctival pallor, MMM, left facial droop Lungs: CTAB, no wheezes or crackles appreciated CVS: RRR, S1/S2 heard, no murmurs or rubs appreciated ABD: Soft, non-tender, non-distended, BS + in all 4 quadrants EXT: Left-sided hemiplegia, radial pulses 2+ BL, DP pulses 2 + BL SKIN: Skin exam normal without any rashes. Neuro: Patient is alert and oriented to name. Patient noted to have left-sided neglect, left facial droop dysarthria and dysphagia. Motor strength 5 out of 5 in right extremities, 0 out of 5 on left upper and lower extremity. Psych: Appropriate mood and affect Results Labs 08/12/25 04:56 08/12/25 04:56 Labs: Urine 08/10/25 Range/Units 09:17 Urine Color Yellow (Lt Yel-Yel) Urine Clarity Turbid A (Clear/Hazy) Urine pH 5.5 (5.0-7.0) Ur Specific Okay 1.031 (1.001-1.035) Urine Protein 1+ A (Neg - Trace) Urine Glucose (UA) 4+ A (Negative) ABG Interpretation ABG results: 08/09/25 18:09 ABG pH 7.51 H ABG pCO2 32 ABG pO2 55 L* ABG HCO3 25 ABG O2 Saturation 92 ABG Base Excess 3 Quality Measures Quality Measures VTE prophylaxis Advance care planning discussed with:: patient and sibling Medications Home Medications and Allergies Home Medications ?Medication ?Instructions ?Recorded ?Confirmed ?Type metformin 1,000 mg PO BID 08/07/2501/28 History carbidopa ER 25 mg-levodopa 100 mg 2 tab PO DAILY 01/2808/08/25 History tablet,extended release empagliflozin 25 mg tablet 25 mg PO DAILY 08/08/2501/28 History (Jardiance) mirtazapine 15 mg tablet 7.5 mg PO DAILY 08/08/2501/28 History omeprazole 40 mg capsule,delayed 40 mg PO DAILY 08/08/25 History release sitagliptin phosphate 100 mg 100 mg PO DAILY 08/08/25 08/08/25 History tablet (Januvia) Allergies Allergy/AdvReac Type Severity Reaction Status Date / Time No Known Drug Allergies Allergy Verified 08/06/25 18:04 Visit Medications Acetaminophen (Acetaminophen 325 Mg Tablet) 650 mg PO Q4HR PRN PRN Reason: Fever >100.3 or Pain 1-3 Stop: 09/08/25 22:58 Last Admin: 08/11/25 00:02 Dose: 650 mg Amlodipine Besylate (Amlodipine Besylate 5 Mg Tablet) 5 mg PO HS [facility] Stop: 09/08/25 20:59 Last Admin: 08/10/25 20:44 Dose: 5 mg Aspirin (Aspirin Ec 81 Mg Tabec) 81 mg PO QDAY [facility] Stop: 09/07/25 08:59 Last Admin: 08/11/25 10:18 Dose: 81 mg Atorvastatin Calcium (Atorvastatin Calcium 20 Mg Tablet) 40 mg PO HS [facility] Stop: 09/07/25 20:59 Last Admin: 08/10/25 20:44 Dose: 40 mg Carvedilol (Carvedilol 3.125 Mg Tablet) 3.125 mg PO BIDWM [facility] Stop: 09/10/25 17:29 Cefuroxime Axetil (Cefuroxime Axetil 250 Mg Tablet) 500 mg PO BID [facility] Stop: 08/12/25 23:00 Clopidogrel Bisulfate (Clopidogrel Bisulfate 75 Mg Tablet) 75 mg PO QDAY [facility] Stop: 09/07/25 08:59 Last Admin: 08/11/25 10:24 Dose: 75 mg Dextrose (Dextrose 50%-Water Inj 50 Ml Syringe) 25 ml IV Q15MIN PRN PRN Reason: BG 50-70 responsive npo pt Stop: 09/08/25 07:32 Dextrose (Dextrose 50%-Water Inj 50 Ml Syringe) 50 ml IV Q15MIN PRN PRN Reason: BG <50 OR BG <70 & pt unresponsive Stop: 09/08/25 07:32 Glucagon (Glucagon Inj 1 Mg Vial) 1 mg IM Q15MIN PRN PRN Reason: BG <70, and no IV access Insulin Degludec (Insulin Degludec 5 Unit/0.05 Ml (Per 5 Units)) 5 unit SC [facility] Stop: 09/10/25 20:59 Insulin Human Lispro (Insulin Lispro (Admelog) 1 Unit/0.01 Ml Unit) 0 unit SC [facility]; Protocol Stop: 09/08/25 11:29 Last Admin: 08/11/25 07:42 Dose: 5 unit Labetalol HCl (Labetalol Inj 5 Mg/Ml Vial 20 Ml) 10 mg IVP Q6HR PRN PRN Reason: Hypertension Stop: 09/08/25 15:46 Last Admin: 08/10/25 21:54 Dose: 10 mg Lactulose (Lactulose Syrup 20 Gm/30 Ml Udc) 20 gm PO BID [facility]; Protocol Stop: 09/09/25 09:29 Last Admin: 08/11/25 10:18 Dose: 20 gm Lisinopril (Lisinopril 20 Mg Tablet) 30 mg PO QDAY [facility] Stop: 09/10/25 08:59 Last Admin: 08/11/25 10:23 Dose: 30 mg Sennosides (Senna Tablet) 1 tab PO QDAY [facility]; Protocol Stop: 09/09/25 09:29 Last Admin: 08/11/25 10:18 Dose: 1 tab Tamsulosin HCl (Tamsulosin Hcl 0.4 Mg Capsule) 0.4 mg PO [facility] Stop: 09/09/25 20:59 Last Admin: 08/10/25 21:55 Dose: 0.4 mg Discontinued Medications Acetaminophen (Acetaminophen 325 Mg Tablet) 650 mg PO Q4HR PRN PRN Reason: Fever >100.3 Stop: 09/08/25 22:58 Last Admin: 08/09/25 23:05 Dose: 650 mg Amlodipine Besylate (Amlodipine Besylate 5 Mg Tablet) 5 mg PO X1 ONE Stop: 08/11/25 10:20 Aspirin (Aspirin Ec 81 Mg Tabec) 81 mg PO X1 ONE Stop: 08/06/25 20:47 Last Admin: 08/07/25 03:17 Dose: Not Given Aspirin (Aspirin Ec 81 Mg Tabec) 81 mg PO QDAY [facility] Stop: 09/06/25 08:59 Atorvastatin Calcium (Atorvastatin Calcium 20 Mg Tablet) 80 mg PO [facility] Stop: 09/05/25 20:59 Last Admin: 08/07/25 03:17 Dose: Not Given Clopidogrel Bisulfate (Clopidogrel Bisulfate 75 Mg Tablet) 75 mg PO X1 ONE Stop: 08/06/25 20:47 Last Admin: 08/07/25 03:17 Dose: Not Given Clopidogrel Bisulfate (Clopidogrel Bisulfate 75 Mg Tablet) 75 mg PO QDAY [facility] Stop: 09/06/25 08:59 Dextrose (Dextrose 50%-Water Inj 50 Ml Syringe) 25 ml IV Q15MIN PRN PRN Reason: BG 50-70 responsive npo pt Stop: 09/05/25 20:36 Dextrose (Dextrose 50%-Water Inj 50 Ml Syringe) 50 ml IV Q15MIN PRN PRN Reason: BG <50 OR BG <70 & pt unresponsive Stop: 09/05/25 20:36 Dextrose (Dextrose 50%-Water Inj 50 Ml Syringe) 50 ml IV Q15MIN PRN PRN Reason: BG <50 OR BG <70 & pt unresponsive Stop: 09/06/25 09:53 Glucagon (Glucagon Inj 1 Mg Vial) 1 mg IM Q15MIN PRN PRN Reason: BG <70, and no IV access Glucagon (Glucagon Inj 1 Mg Vial) 1 mg IM Q15MIN PRN PRN Reason: BG <70, and no IV access Glycerin (Glycerin, Adult 1 Ea Supp) 1 each VA X1 ONE Stop: 08/06/25 21:01 Last Admin: 08/07/25 04:53 Dose: Not Given Heparin Sodium (Porcine) (Heparin Sod Inj 5000 Unit/Ml Vial) 5,000 unit SC BID [facility] Stop: 08/21/25 08:59 Ceftriaxone Sodium/Dextrose (Rocephin/D5w 1gm Iv Premix) 1 gm in 50 mls @ 100 mls/hr IV X1 ONE Stop: 08/06/25 18:18 Last Infusion: 08/06/25 19:30 Dose: Infused Sodium Chloride (Ns) 1,000 mls @ 999 mls/hr IV .Q1H1M ONE Stop: 08/06/25 18:49 Last Infusion: 08/06/25 20:57 Dose: Infused Sodium Chloride (Ns) 1,000 mls @ 999 mls/hr IV .Q1H1M ONE Stop: 08/07/25 01:03 Dextrose/Sodium Chloride (D5-Ns) 1,000 mls @ 60 mls/hr IV .[id number] [facility] Stop: 09/06/25 04:14 Last Admin: 08/07/25 04:32 Dose: 60 mls/hr Magnesium Sulfate (Magnesium Sulfate Ivpb) 4 gm in 50 mls @ 12.5 mls/hr IV X1 ONE Stop: 08/07/25 19:35 Last Admin: 08/07/25 16:39 Dose: 12.5 mls/hr Potassium Chloride (Kcl Ivpb) 10 meq in 100 mls @ 100 mls/hr IV Q1H [facility] Stop: 08/08/25 11:35 Last Infusion: 08/08/25 19:38 Dose: Infused Lactated Ringer's (Lactated Ringers) 500 mls @ 999 mls/hr IV .Q31M ONE Stop: 08/08/25 18:28 Last Admin: 08/08/25 20:29 Dose: 999 mls/hr Magnesium Sulfate (Magnesium Sulfate Ivpb) 2 gm in 50 mls @ 25 mls/hr IV X1 ONE Stop: 08/10/25 09:41 Last Admin: 08/10/25 08:29 Dose: 25 mls/hr Lactated Ringer's (Lactated Ringers) 500 mls @ 999 mls/hr IV .Q31M ONE Stop: 08/10/25 10:30 Last Admin: 08/10/25 10:12 Dose: 999 mls/hr Ceftriaxone Sodium/Dextrose (Rocephin/D5w 1gm Iv Premix) 1 gm in 50 mls @ 100 mls/hr IV QDAY [facility] Stop: 08/17/25 15:04 Last Admin: 08/11/25 10:24 Dose: 100 mls/hr Insulin Degludec (Insulin Degludec 5 Unit/0.05 Ml (Per 5 Units)) 2 unit SC HS [facility] Stop: 09/08/25 20:59 Last Admin: 08/10/25 20:47 Dose: 2 unit Insulin Human Lispro (Insulin Lispro (Admelog) 1 Unit/0.01 Ml Unit) 0 unit SC Q6HR [facility]; Protocol Stop: 09/05/25 20:39 Last Admin: 08/07/25 01:16 Dose: 1 unit Insulin Human Lispro (Insulin Lispro (Admelog) 1 Unit/0.01 Ml Unit) 0 unit SC Q6HR [facility]; Protocol Stop: 09/06/25 11:59 Last Admin: 08/07/25 17:04 Dose: 3 unit Insulin Human Lispro (Insulin Lispro (Admelog) 1 Unit/0.01 Ml Unit) 0 unit SC AC [facility]; Protocol Stop: 09/07/25 07:29 Last Admin: 08/08/25 18:01 Dose: 2 unit Insulin Human Lispro (Insulin Lispro (Admelog) 1 Unit/0.01 Ml Unit) 5 unit SC X1 ONE Stop: 08/09/25 07:35 Last Admin: 08/09/25 08:41 Dose: 5 unit Labetalol HCl (Labetalol Inj 5 Mg/Ml Vial 20 Ml) 10 mg IVP X1 ONE Stop: 08/10/25 01:24 Last Admin: 08/10/25 01:30 Dose: Not Given Lactulose (Lactulose Syrup 20 Gm/30 Ml Udc) 10 gm PO QID [facility]; Protocol Stop: 09/07/25 11:59 Last Admin: 08/10/25 06:13 Dose: 10 gm Lisinopril (Lisinopril 2.5 Mg Tablet) 10 mg PO QDAY [facility] Stop: 09/07/25 11:59 Last Admin: 08/08/25 11:54 Dose: 10 mg Lisinopril (Lisinopril 2.5 Mg Tablet) 2.5 mg PO X1 ONE Stop: 08/08/25 13:01 Last Admin: 08/08/25 11:54 Dose: Not Given Lisinopril (Lisinopril 20 Mg Tablet) 20 mg PO QDAY [facility] Stop: 09/08/25 08:59 Last Admin: 08/10/25 08:29 Dose: 20 mg Lisinopril (Lisinopril 2.5 Mg Tablet) 10 mg PO X1 ONE Stop: 08/11/25 10:20 Potassium Chloride (Potassium Chloride 10% 20 Meq/15 Ml Udc) 40 meq PO X1 ONE Stop: 08/08/25 07:57 Last Admin: 08/08/25 08:40 Dose: 40 meq Potassium Phos/Sodium Phos (Naph,[facility] 1 Packet (1.5 Gm)) 1 packet PO X1 ONE Stop: 08/07/25 15:38 Last Admin: 08/07/25 16:39 Dose: 1 packet Sennosides (Senna Tablet) 1 tab PO QDAY PRN; Protocol PRN Reason: CONSTIPATION Stop: 09/06/25 15:43 Last Admin: 08/09/25 10:07 Dose: 1 tab Tamsulosin HCl (Tamsulosin Hcl 0.4 Mg Capsule) 0.4 mg PO QDAY [facility] Stop: 09/08/25 09:44 Last Admin: 08/09/25 10:07 Dose: 0.4 mg Assessment & Plan Plan Patient is a 75-year-old male with past medical history significant for diabetes, hypertension, previous CVA in 2020 who presented to the ED with acute left-sided weakness and numbness and admitted for further acute CVA workup. ID was consulted due to patient's continual spiking fevers despite chest x-ray being clear and urinalysis negative for UTI. #Recurrent fever Patient's recent fever was noticed at 12 AM this morning. Patient since has been afebrile and currently on IV antibiotics. Primary team ordered cocci level. Chest x-ray is negative for any pneumonia or atelectasis. UA negative for UTI. Patient most likely could be having a viral fever that usually resolves in a few days. Will transition patient from IV antibiotics to p.o. cefuroxime 500 mg twice a day. Follow-up with cocci IgM level. #Hypertension #Acute CVA due to SORAYA and right MCA occlusion #History of multiple CVAs #Pulmonary embolism #Urinary retention #Constipation #Type 2 diabetes mellitus Treat as per primary team Patient's plan and care discussed with my attending, Dr. Fatou Babb MD PGY-3
--- NOTE | 2025-08-11 11:14 | CHAP ---
Responded to [employer] Referral. prayed for patient and spent time talking with his sister. answering questions and bringing comfort.
[2025-08-11 11:36] LABS: Basophils # (Auto) 0.1 Thou/mm3 (0.0-0.2); Basophils % (Auto) 0 % (0-2.5); Eosinophils # (Auto) 0.1 Thou/mm3 (0.0-0.5); Eosinophils % (Auto) 1 % (0-10); Hematocrit 36.3 % (41.0-53.0); Hemoglobin 12.6 g/dL (13.5-16.0); Immature Granulocytes Auto 0.05 Thou/mm3 (0.00-0.00); Lymphocytes # (Auto) 1.7 Thou/mm3 (1.0-4.8); Lymphocytes % (Auto) 11 % (10-50); Mean Corpuscular HGB Conc 34.7 g/dl (31.0-37.0); Mean Corpuscular Hemoglobin 31.9 pg (25.0-35.0); Mean Corpuscular Volume 92 fL (80-100); Monocytes # (Auto) 1.0 Thou/mm3 (0.0-0.8); Monocytes % (Auto) 7 % (0-12); Neutrophils # (Auto) 11.5 Thou/mm3 (1.8-7.7); Neutrophils % (Auto) 80 % (37-80); Nucleated Red Blood Cell # 0.00 Thou/mm3 (0.00-0.00); Nucleated Red Blood Cell % 0 /100 WBC (0); Platelet Count 215 Thou/mm3 (140-440); RDW Standard Deviation 42.0 fL (35.1-43.9); Red Blood Count 3.95 Miln/mm3 (4.50-5.90); White Blood Count 14.4 Thou/mm3 (3.8-10.6)
[2025-08-11 12:02] LABS: Alanine Aminotransferase 22 U/L (10-49); Albumin, Serum 3.9 gm/dL (3.4-4.8); Albumin/Globulin Ratio 1.4 (1.2-2.2); Alkaline Phosphatase 61 U/L (46-116); Anion Gap 9 (7-16); Aspartate Amino Transferase 24 U/L (0-34); BUN/Creatinine Ratio 23 Ratio (12-20); Bilirubin,Total 0.5 mg/dL (0.3-1.2); Blood Urea Nitrogen 16 mg/dL (9-23); Calcium 9.0 mg/dL (8.3-10.6); Calcium (Corrected) 9.1 mg/dL (8.5-10.1); Carbon Dioxide 28.1 mMol/L (20.0-31.0); Chloride 96 mMol/L (98-107); Creatinine (Component) 0.7 mg/dL (0.6-1.3); Estimated Creatinine Clearance 81.0 mL/min (>60); Globulin 2.8 gm/dL (2.3-3.5); Glucose 266 mg/dL (74-106); Magnesium 1.7 mg/dL (1.6-2.6); Osmolality,Calculated 276 (275-295); Phosphorous 2.6 mg/dL (2.4-5.1); Potassium 3.8 mMol/L (3.4-5.1); Sodium 133 mMol/L (136-145); Total Protein 6.7 gm/dL (5.7-8.2); eGFR > 60 See Note
--- NOTE | 2025-08-11 12:43 | PC.NURSE ---
BP 187/90. Patient denies chest pain, shortness of breath, or discomfort. Dr. Wilder aware. One time dose of lisinopril given, see MAR.
--- NOTE | 2025-08-11 13:32 | ESPR_ITS ---
<Statement entered by Pavan Wilder MD - 08/17/25 12:11> I reviewed above note and agree with findings and plans. I have also personally examined the patient with medicine team and went over assessment and plan with medical team including internet consultant and resident physician. Documentation for date of: 08/11/25 No overnight events. Patient examined at bedside. Patient continued to spike fevers over night with rising luekocytosis. Positive for cocci. Patient started Fluconazole orally. Pending infectious disease consult. Incrased Lisinopril from 20 to 30 mg once daily, increased Amlodpine 5 mg -->10 mg HS, and Carvedilol. Plan to discharge within the next 24 hours if patient continues to improve. - The patient's plan was discussed with attending Dr. Meño Conklin MD PGY2 Internal Medicine Subjective Subjective Interval history: Overnight, patient continued to spike fevers of 102 starting around midnight and etiology remained unclear (CXR clear, unconvincing UA). Autonomic dysregulation 2/2 stroke was the working explanation. ID had been consulted and suggested that there could be a viral cause for patient's continued febrile episodes. 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 In other news, patient still remains hypertensive with BPs ranging in the 170-190s/75-95s despite current antihypertensive regimen of PO lisinopril 30 mg qD and PO amlodipine 10 mg HS, which is concerning for risk of hemorrhagic conversion in the setting of recent stroke. Plan Updates: -Started IV fluconazole 400 mg qD [08/11--] -Per ID recommendations, started PO cefuroxime 500 mg BID [08/11--] -Increased PO lisinopril 30 mg qD to 40 mg qD -Increased PO amlodipine 5 mg HS to 10 mg HS -Started PO Coreg 3.125 mg BID -Ordered RSV -Ordered influenza A and B -Ordered Coccidiomycosis serology (came back positive) Exam Vital Signs Temp Pulse Resp BP Pulse Ox O2 Del Method O2 Flow Rate 100 F 98 24 H 177/83 H 96 Room Air 2 08/11/25 13:20 08/11/25 12:12 08/11/25 12:00 08/11/25 13:02 08/11/25 12:00 08/11/25 12:00 08/10/25 00:00 Narrative Exam GENERAL APPEARANCE: AOx3. NAD, unable to move left hemisphere of body, slurring words HEENT: Normocephalic atraumatic, L side facial droop and numbness neck is supple. Lids/conjunctiva normal. Mucous membranes moist, nares normal. CARDIAC: Regular rate and rhythm, S1+S2 heard. No murmurs, rubs, or gallops noted RESPIRATORY: Bilateral anterior lung hernández clear to auscultation. Respiratory effort normal, no tripod positioning, no accessory muscle use. ABDOMINAL: NBS. Soft, ND/NT. No evidence of fluid wave. No pulsatile masses on exam, rebound tenderness, Acosta sign or pain over McBurney's point. MUSCLES/EXTREMITIES: No abnormal range of motion on R side. L-sided paralysis DERM: Warm, pink and dry. No rashes, dermatoses, petechiae or lesions. NEUROLOGICAL: Speech is slurred. Normal level of consciousness. Unable to assess gait and coordination. 5/5 strength in Left sided extremities, 0/5 R sided extremities. Objective Labs 08/11/25 11:23 08/11/25 11:23 Labs: Laboratory Results - last 24 hr 08/11/25 11:23 WBC 14.4 H RBC 3.95 L Hgb 12.6 L Hct 36.3 L MCV 92 MCH 31.9 MCHC 34.7 RDW Std Deviation 42.0 Plt Count 215 Neut % (Auto) 80 Lymph % (Auto) 11 Twiggs % (Auto) 7 Eos % (Auto) 1 Baso % (Auto) 0 Neut # (Auto) 11.5 H Lymph # (Auto) 1.7 Twiggs # (Auto) 1.0 H Eos # (Auto) 0.1 Baso # (Auto) 0.1 Immature Gran # (Auto) 0.05 H Absolute Nucleated RBC 0.00 Immature Gran % 0 Nucleated RBC % 0 Sodium 133 L Potassium 3.8 Chloride 96 L Carbon Dioxide 28.1 Anion Gap 9 BUN 16 Creatinine 0.7 Estim Creat Clear Calc 81.0 eGFR > 60 BUN/Creatinine Ratio 23 H Glucose 266 H Calculated Osmolality 276 Calcium 9.0 Corrected Calcium 9.1 Phosphorus 2.6 Magnesium 1.7 Total Bilirubin 0.5 AST 24 ALT 22 Alkaline Phosphatase 61 D Total Protein 6.7 Albumin 3.9 Globulin 2.8 Albumin/Globulin Ratio 1.4 ABG Interpretation ABG results: 08/09/25 18:09 ABG pH 7.51 H ABG pCO2 32 ABG pO2 55 L* ABG HCO3 25 ABG O2 Saturation 92 ABG Base Excess 3 Quality Measures Quality Measures VTE prophylaxis Advance care planning discussed with:: patient Assessment & Plan Assessment Current Active Medications: Generic Name Dose Route Start Last Admin Trade Name Freq PRN Reason Stop Dose Admin Acetaminophen 650 mg 08/10/25 07:26 08/11/25 13:20 Acetaminophen 325 Mg Tablet PO 09/08/25 22:58 650 mg Q4HR PRN Administration Fever >100.3 or Pain 1-3 Amlodipine Besylate 10 mg 08/11/25 21:00 Amlodipine Besylate 5 Mg Tablet PO 09/10/25 20:59 HS A[facility] Aspirin 81 mg 08/08/25 09:00 08/11/25 10:18 Aspirin Ec 81 Mg Tabec PO 09/07/25 08:59 81 mg QDAY [facility] Administration Atorvastatin Calcium 40 mg 08/08/25 21:00 08/10/25 20:44 Atorvastatin Calcium 20 Mg Tablet PO 09/07/25 20:59 40 mg HS [facility] Administration Carvedilol 3.125 mg 08/11/25 17:30 Carvedilol 3.125 Mg Tablet PO 09/10/25 17:29 BIDWM [facility] Cefuroxime Axetil 500 mg 08/11/25 10:45 08/11/25 11:57 Cefuroxime Axetil 250 Mg Tablet PO 08/12/25 23:00 500 mg BID [facility] Administration Clopidogrel Bisulfate 75 mg 08/08/25 09:00 08/11/25 10:24 Clopidogrel Bisulfate 75 Mg Tablet PO 09/07/25 08:59 75 mg QDAY [facility] Administration Dextrose 25 ml 08/09/25 07:33 Dextrose 50%-Water Inj 50 Ml Syringe IV 09/08/25 07:32 Q15MIN PRN BG 50-70 responsive npo pt Dextrose 50 ml 08/09/25 07:33 Dextrose 50%-Water Inj 50 Ml Syringe IV 09/08/25 07:32 Q15MIN PRN BG <50 OR BG <70 & pt unresponsive Glucagon 1 mg 08/07/25 20:18 Glucagon Inj 1 Mg Vial IM Q15MIN PRN BG <70, and no IV access Insulin Degludec 5 unit 08/11/25 21:00 Insulin Degludec 5 Unit/0.05 Ml (Per 5 Units) SC 09/10/25 20:59 HS [facility] Insulin Human Lispro 0 unit 08/09/25 11:30 08/11/25 11:56 Insulin Lispro (Admelog) 1 Unit/0.01 Ml Unit SC 09/08/25 11:29 5 unit ACHS [facility] Administration Protocol Labetalol HCl 10 mg 08/09/25 15:47 08/10/25 21:54 Labetalol Inj 5 Mg/Ml Vial 20 Ml IVP 09/08/25 15:46 10 mg Q6HR PRN Administration Hypertension Lactulose 20 gm 08/10/25 09:30 08/11/25 10:18 Lactulose Syrup 20 Gm/30 Ml Udc PO 09/09/25 09:29 20 gm BID [facility] Administration Protocol Lisinopril 40 mg 08/12/25 09:00 Lisinopril 20 Mg Tablet PO 09/11/25 08:59 QDAY [facility] Sennosides 1 tab 08/10/25 09:30 08/11/25 10:18 Senna Tablet PO 09/09/25 09:29 1 tab QDAY [facility] Administration Protocol Tamsulosin HCl 0.4 mg 08/10/25 21:00 08/10/25 21:55 Tamsulosin Hcl 0.4 Mg Capsule PO 09/09/25 20:59 0.4 mg HS [facility] Administration Plan Patient is a 75-year-old male with past medical history significant for NIDDM type II, history of CVA with left-sided deficits and ambulates with a walker at baseline and primary hypertension who presented with new onset acute left-sided weakness and numbness. Patient was admitted for stroke workup. #Cocci pneumonia, #Fever Patient continues to spike overnight fevers Possibly 2/2 valley fever due to Cocci (+) Per ID, may be 2/2 viral infection instead of bacterial 08/09 CXR negative for pneumonia 08/10 UCx pending, UA was unconvincing 08/10 BCx showed 2/2 [id number] RSV, influenza A/B pending DDx: viral etiology, stroke-related autonomic dysfunction Rx: -Started IV fluconazole 400 mg BID [08/11--] -Per ID recommendations, started PO cefuroxime 500 mg BID [08/11--] -Follow up on UCx -Follow up on BCx HTN History of hypertension, BP elevated on presentation as above, likely in setting of stroke. Currently continues to remain uncontrolled, ranging between 170-190s/75-95s Rx: -Increased PO lisinopril 30 mg qD to 40 mg qD -Increased PO amlodipine 5 mg HS to 10 mg HS -Started PO Coreg 3.125 mg BID -IV labetalol and hydralazine prn #Acute ischemic stroke w/ SORAYA and right MCA occlusion #History of multiple CVAs since 2020 Presenting with acute left-sided deficit, last sensation in addition to left facial droop. Outside the window for tPA. Head CT was negative for acute hemorrhage, mass effect or midline shift. Head/neck CTA showed 60% stenosis of proximal left internal carotid artery, 50% stenosis proximal right internal carotid artery, 90% stenosis junction P1 P2 segments right posterior cerebral artery, 80% stenosis P1 segment left posterior cerebral artery, 80% stenosis proximal M1 segment left middle cerebral artery, No cerebral large vessel arterial occlusions. Repeat Head/Neck CTA showed occlusion of the A2 and A3 segments of the right anterior cerebral artery, with reconstitution in the A4 segment, as well as occlusion of the M2, M3, and M4 segments of the right middle cerebral artery. Vitals on presentation showed BP 184/104, HR 105, afebrile. Teleneurology was consulted. Recommendations as below: ? Seizure precaution ? Head elevation >30 degrees ? Permissive hypertension ? Continue LABETALOL 10 mg for BP >220/120 ? Continue TYLENOL for fever ? Continue ASPIRIN 81 mg daily (continue for 21 days total, started 08/07) ? Continue PLAVIX 75 mg daily -Per neurology, based on 08/[address] showing interval large acute nonhemorrhagic infarct of right middle cerebral artery distribution, consider d/cing aspirin and Plavix in favor of Lovenox for anticoagulation ?Bedside swallow eval complete, recommend: pureed diet, moderate oral dysphagia ?PT evaluation complete - Lipids -> Cholesterol: 172, Triglycerides: 85, LDL: 95, HDL: 60 - TSH: 0.92 - A1C: 7.8 Pulmonary Embolism On CTA acute pulmonary embolism is noted involving the segmental branches of the right upper lobe pulmonary artery, which was only partially imaged. Non- emergent follow-up with a CT pulmonary angiogram is recommended. Plan: -Family declined operative treatment -Per neurology, based on 08/[address] showing interval large acute nonhemorrhagic infarct of right middle cerebral artery distribution, consider d/cing aspirin and Plavix in favor of Lovenox for anticoagulation #Urinary retention (resolved) Had been unable to urinate after his Whit[place] catheter was removed and bladder scan showed 480 mL of retained urine on 08/09 Now back on Whitlock catheter Plan: -Continue PO tamsulosin 0.4 mg qD #Constipation (resolved) Per sister, patient has not had a BM for 3 weeks No reports of abdominal pain and no abdominal distension noted on physical exam, bowel sounds present 08/09 KUB showed prominent colonic ileus and moderate to prominent stool in the rectum 08/10 BM x 1 Plan: -Continue bowel regimen as appropriate T2DM GLUCOSE slightly elevated. A1c: 7.8. ? INSULIN sliding scale ? Accu-Chek Health maintenance Diet: Carbohydrate Consistent (Mildly Thick Level 2, Dysphagia 1 Pureed) GI prophylaxis: None DVT prophylaxis: None Antibiotics: IV fluconazole and IV cefuroxime CODE STATUS: Full code Disposition: Currently being worked up for fever of unclear etiology Case was discussed with attending physician, Dr. Wilder, and supervising resident, Dr. Gamez. Femi Mckeon, DO Internal Medicine, PGY-1
[2025-08-11 14:42] LABS: Cocci Serology, IgM Positive (Negative)
[2025-08-11 14:43] LABS: Cocid Sro, CF/ID (UCD) NO CHG* See Sep Rpt
[2025-08-11] MEDS: hydrALAZINE INJ 20 MG/ML VIAL 10 MG IVP (16:05)
[2025-08-11] MEDS: FLUCONAZOLE/NS 400 MG IVPB 400 MG/200 ML BAG 100 MG IV (16:55)
--- NOTE | 2025-08-11 18:06 | PD.RESPRO ---
Documentation for date of: 08/11/25 Subjective Subjective Interval history: Patient examined at bedside. Sister was also present and updated on condition. Family is denying for any anticoagulant therapy for his PE. Patient is exhibiting minor improvement in his dysarthria but still has complete left hemineglect and hemiplegia. WBC slightly up trended to 14, other labs unremarkable. Workup for fever spikes overnight including cocci returned positive Ig M. Patient was started on fluconazole. Continue PT and monitor during feeds. Exam Vital Signs Temp Pulse Resp BP Pulse Ox O2 Del Method O2 Flow Rate 98.2 F 91 24 H 160/67 H 96 Room Air 2 08/11/25 14:20 08/11/25 16:54 08/11/25 12:00 08/11/25 16:54 08/11/25 12:00 08/11/25 12:00 08/10/25 00:00 Narrative Exam General: Elderly male, left hemiplegia, falling to left side HEENT: NCAT, No JVD noted. Mucosa dry. Pupils are equal and reactive to light bilaterally, left facial droop Cardiovascular: Normal S1 and S2. Regular rate and rhythm. Respiratory: Lungs are clear to auscultation bilaterally. No wheezing or crackles heard. Abdomen: Soft, nontender, not distended, normal bowel sounds. Skin: Warm to touch, dry, no rashes noted Musculoskeletal: only able to move right upper and lower extremity. Strength 5/5 on right. No movement of left side. NEURO: unable to assess mentation. Left sided neglect. Speech and language: dysarthria with dysphasia. Motor system: Strength: 5 out of 5 in right extremities, 0/5 on left extremities; No pronator drift noted. No intention tremors noted. Gait: Not tested. No signs of meningeal irritation noted. Objective Labs 08/13/25 04:43 08/13/25 04:43 Labs: Laboratory Results - last 24 hr 08/11/25 08/11/25 11:23 12:12 WBC 14.4 H RBC 3.95 L Hgb 12.6 L Hct 36.3 L MCV 92 MCH 31.9 MCHC 34.7 RDW Std Deviation 42.0 Plt Count 215 Neut % (Auto) 80 Lymph % (Auto) 11 [place] % (Auto) 7 Eos % (Auto) 1 Baso % (Auto) 0 Neut # (Auto) 11.5 H Lymph # (Auto) 1.7 [place] # (Auto) 1.0 H Eos # (Auto) 0.1 Baso # (Auto) 0.1 Immature Gran # (Auto) 0.05 H Absolute Nucleated RBC 0.00 Immature Gran % 0 Nucleated RBC % 0 Sodium 133 L Potassium 3.8 Chloride 96 L Carbon Dioxide 28.1 Anion Gap 9 BUN 16 Creatinine 0.7 Estim Creat Clear Calc 81.0 eGFR > 60 BUN/Creatinine Ratio 23 H Glucose 266 H Calculated Osmolality 276 Calcium 9.0 Corrected Calcium 9.1 Phosphorus 2.6 Magnesium 1.7 Total Bilirubin 0.5 AST 24 ALT 22 Alkaline Phosphatase 61 D Total Protein 6.7 Albumin 3.9 Globulin 2.8 Albumin/Globulin Ratio 1.4 Coccidioides IgM Ab Positive A ABG Interpretation ABG results: 08/09/25 18:09 ABG pH 7.51 H ABG pCO2 32 ABG pO2 55 L* ABG HCO3 25 ABG O2 Saturation 92 ABG Base Excess 3 Quality Measures Quality Measures VTE prophylaxis Advance care planning discussed with:: sibling Assessment & Plan Assessment Current Active Medications: Generic Name Dose Route Start Last Admin Trade Name Freq PRN Reason Stop Dose Admin Acetaminophen 650 mg 08/10/25 07:26 08/11/25 13:20 Acetaminophen 325 Mg Tablet PO 09/08/25 22:58 650 mg Q4HR PRN Administration Fever >100.3 or Pain 1-3 Amlodipine Besylate 5 mg 08/11/25 21:00 Amlodipine Besylate 5 Mg Tablet PO 08/11/25 21:01 HS ONE Amlodipine Besylate 10 mg 08/12/25 09:00 Amlodipine Besylate 5 Mg Tablet PO 09/11/25 08:59 QDAY ANALIA Aspirin 81 mg 08/08/25 09:00 08/11/25 10:18 Aspirin Ec 81 Mg Tabec PO 09/07/25 08:59 81 mg QDAY ANALIA Administration Atorvastatin Calcium 40 mg 08/08/25 21:00 08/10/25 20:44 Atorvastatin Calcium 20 Mg Tablet PO 09/07/25 20:59 40 mg HS ANALIA Administration Carvedilol 3.125 mg 08/11/25 17:30 08/11/25 16:54 Carvedilol 3.125 Mg Tablet PO 09/10/25 17:29 3.125 mg BIDWM ANALIA Administration Cefuroxime Axetil 500 mg 08/11/25 10:45 08/11/25 11:57 Cefuroxime Axetil 250 Mg Tablet PO 08/12/25 23:00 500 mg BID ANALIA Administration Clopidogrel Bisulfate 75 mg 08/08/25 09:00 08/11/25 10:24 Clopidogrel Bisulfate 75 Mg Tablet PO 09/07/25 08:59 75 mg QDAY ANALIA Administration Dextrose 25 ml 08/09/25 07:33 Dextrose 50%-Water Inj 50 Ml Syringe IV 09/08/25 07:32 Q15MIN PRN BG 50-70 responsive npo pt Dextrose 50 ml 08/09/25 07:33 Dextrose 50%-Water Inj 50 Ml Syringe IV 09/08/25 07:32 Q15MIN PRN BG <50 OR BG <70 & pt unresponsive Glucagon 1 mg 08/07/25 20:18 Glucagon Inj 1 Mg Vial IM Q15MIN PRN BG <70, and no IV access Hydralazine HCl 10 mg 08/11/25 15:59 08/11/25 16:05 Hydralazine Inj 20 Mg/Ml Vial IVP 09/10/25 15:58 10 mg Q6HR PRN Administration Hypertension Fluconazole 400 mg in 200 mls @ 100 mls/hr 08/11/25 16:03 08/11/25 16:55 Diflucan/Ns Ivpb IV 08/18/25 16:02 100 mls/hr QDAY ANALIA Administration Insulin Degludec 5 unit 08/11/25 21:00 Insulin Degludec 5 Unit/0.05 Ml (Per 5 Units) SC 09/10/25 20:59 HS ANALIA Insulin Human Lispro 0 unit 08/09/25 11:30 08/11/25 16:56 Insulin Lispro (Admelog) 1 Unit/0.01 Ml Unit SC 09/08/25 11:29 5 unit ACHS ANALIA Administration Protocol Labetalol HCl 10 mg 08/09/25 15:47 08/10/25 21:54 Labetalol Inj 5 Mg/Ml Vial 20 Ml IVP 09/08/25 15:46 10 mg Q6HR PRN Administration Hypertension Lactulose 20 gm 08/10/25 09:30 08/11/25 10:18 Lactulose Syrup 20 Gm/30 Ml Udc PO 09/09/25 09:29 20 gm BID ANALIA Administration Protocol Lisinopril 40 mg 08/12/25 09:00 Lisinopril 20 Mg Tablet PO 09/11/25 08:59 QDAY ANALIA Sennosides 1 tab 08/10/25 09:30 08/11/25 10:18 Senna Tablet PO 09/09/25 09:29 1 tab QDAY ANALIA Administration Protocol Tamsulosin HCl 0.4 mg 08/10/25 21:00 08/10/25 21:55 Tamsulosin Hcl 0.4 Mg Capsule PO 09/09/25 20:59 0.4 mg HS ANALIA Administration Plan Gordo Corcoran is 75 yr male with PMH of diabetes, HTN, previous CVA 2020 presented to ED on 08/06 due to left side full motor deficits and dysarthria. Found to have acute ischemic stroke, initially NIHSS 5 progressed to NIHSS 23, now with flaccid left hemiplegia, left facial droop, and dysarthria. He denied transfer for surgery. #Right hemiparesis #Dysarthria #Acute CVA #Previous CVA Presenting with acute left-sided deficit, last sensation in addition to left facial droop. Outside the window for tPA. Head CT was negative for acute hemorrhage, mass effect or midline shift. Head/neck CTA showed 60% stenosis of proximal left internal carotid artery, 50% stenosis proximal right internal carotid artery, 90% stenosis junction P1 P2 segments right posterior cerebral artery, 80% stenosis P1 segment left posterior cerebral artery, 80% stenosis proximal M1 segment left middle cerebral artery, No cerebral large vessel arterial occlusions. Repeat Head/Neck CTA showed occlusion of the A2 and A3 segments of the right anterior cerebral artery, with reconstitution in the A4 segment, as well as occlusion of the M2, M3, and M4 segments of the right middle cerebral artery. Patient denied transfer to surgical intervention. They wish to persue acute rehab. But, . Due to extent of neurologic impairment, patient may not be suitable for acute rehab placement. ? Seizure precaution ? Head elevation >30 degrees ? Continue LABETALOL 10 mg for BP >220/120 ? Continue TYLENOL for fever ? Continue ASPIRIN 81 mg daily ? Continue PLAVIX 75 mg daily (to be continued indefinitely) -atrovastatin 4omg daily ? Pending bedside swallow eval --Pureed diet, moderate oral dysphagia. -MRI held ? Pending echocardiogram - Held - Lipids -> Cholesterol: 172, Triglycerides: 85, LDL: 95, HDL: 60 - TSH: 0.92 - A1C: 7.8 #Pulmonary Embolism On CTA acute pulmonary embolism is noted involving the segmental branches of the right upper lobe pulmonary artery, which was only partially imaged. Nonemergent follow-up with a CT pulmonary angiogram is recommended. Plan: - Family declines operative treatment -family decline anticoagulant therapy #T2DM GLUCOSE slightly elevated. A1c: 7.8. ? INSULIN sliding scale ? Accu-Cheks #Acute cystitis #HTN Primary care team to manage above conditions and ongoing care needs. The patient's management plan was discussed with my attending physician Dr. Babb. Indira Pal, PGY-2 Attending Provider Attestation/Addendum I personally have seen and examined the patient at the bedside and I agree with resident's findings, assessment and plan of care. Patient presenting symptoms are most consistent with major ischemic infarction affecting the right ICA territory with occlusion. Patient's left dense hemiplegia including face arm and leg and dysarthria and hemineglect have not improved much. Patient does have functional dysphagia, intermittently get worse. Patient is waiting for rehab placement and a repeat CT head tomorrow to evaluate for hemorrhagic transformation.
[2025-08-11 18:08] LABS: Influenza A Ag Negative; Influenza B Ag Negative; Respiratory Syncytial Virus Ag Negative (Negative)
[2025-08-11] MEDS: INSULIN DEGLUDEC 5 UNIT/0.05 ML (PER 5 UNITS) SC (20:38)
[2025-08-11] MEDS: ATORVASTATIN CALCIUM 20 MG TABLET 40 MG PO (20:39)
[2025-08-11] MEDS: TAMSULOSIN HCL 0.4 MG CAPSULE PO (20:39)
[2025-08-12] VITALS (16 sets, daily range): BP systolic 160–180; BP diastolic 77–96; PULSE 80–100; RESP 17–98; TEMP 36.1–38.1; O2SAT 93–98; BMI 12.0
[2025-08-12 05:54] LABS: Basophils # (Auto) 0.1 Thou/mm3 (0.0-0.2); Basophils % (Auto) 1 % (0-2.5); Eosinophils # (Auto) 0.2 Thou/mm3 (0.0-0.5); Eosinophils % (Auto) 2 % (0-10); Hematocrit 35.0 % (41.0-53.0); Hemoglobin 12.2 g/dL (13.5-16.0); Immature Granulocytes Auto 0.05 Thou/mm3 (0.00-0.00); Lymphocytes # (Auto) 2.4 Thou/mm3 (1.0-4.8); Lymphocytes % (Auto) 18 % (10-50); Mean Corpuscular HGB Conc 34.9 g/dl (31.0-37.0); Mean Corpuscular Hemoglobin 31.5 pg (25.0-35.0); Mean Corpuscular Volume 90 fL (80-100); Monocytes # (Auto) 1.3 Thou/mm3 (0.0-0.8); Monocytes % (Auto) 10 % (0-12); Neutrophils # (Auto) 9.0 Thou/mm3 (1.8-7.7); Neutrophils % (Auto) 70 % (37-80); Nucleated Red Blood Cell # 0.00 Thou/mm3 (0.00-0.00); Nucleated Red Blood Cell % 0 /100 WBC (0); Platelet Count 105 Thou/mm3 (140-440); RDW Standard Deviation 41.4 fL (35.1-43.9); Red Blood Count 3.87 Miln/mm3 (4.50-5.90); White Blood Count 12.9 Thou/mm3 (3.8-10.6)
[2025-08-12 06:16] LABS: Alanine Aminotransferase 17 U/L (10-49); Albumin, Serum 3.5 gm/dL (3.4-4.8); Albumin/Globulin Ratio 1.4 (1.2-2.2); Alkaline Phosphatase 58 U/L (46-116); Anion Gap 10 (7-16); Aspartate Amino Transferase 20 U/L (0-34); BUN/Creatinine Ratio 16 Ratio (12-20); Bilirubin,Total 0.5 mg/dL (0.3-1.2); Blood Urea Nitrogen 11 mg/dL (9-23); Calcium 8.4 mg/dL (8.3-10.6); Calcium (Corrected) 8.8 mg/dL (8.5-10.1); Carbon Dioxide 24.6 mMol/L (20.0-31.0); Chloride 98 mMol/L (98-107); Creatinine (Component) 0.7 mg/dL (0.6-1.3); Estimated Creatinine Clearance 81.0 mL/min (>60); Globulin 2.5 gm/dL (2.3-3.5); Glucose 209 mg/dL (74-106); Magnesium 1.6 mg/dL (1.6-2.6); Osmolality,Calculated 271 (275-295); Phosphorous 2.9 mg/dL (2.4-5.1); Potassium 3.6 mMol/L (3.4-5.1); Sodium 133 mMol/L (136-145); Total Protein 6.0 gm/dL (5.7-8.2); eGFR > 60 See Note
[2025-08-12] MEDS: INSULIN LISPRO (AdmeLOG) 1 UNIT/0.01 ML UNIT SC (07:56)
[2025-08-12] MEDS: FLUCONAZOLE/NS 400 MG IVPB 400 MG/200 ML BAG 100 MG IV (10:04)
[2025-08-12] MEDS: LACTULOSE SYRUP 20 GM/30 ML UDC PO (10:05)
[2025-08-12] MEDS: CLOPIDOGREL BISULFATE 75 MG TABLET PO (10:10)
[2025-08-12] MEDS: ASPIRIN EC 81 MG TABEC PO (10:10)
--- NOTE | 2025-08-12 10:49 | CHAP ---
Patient was visited by a Spiritual Care Volunteer on 08/12/2025 between [id number] and [id number] and received comfort, encouragement and/or prayer.
[2025-08-12] MEDS: POTASSIUM CHLORIDE 10% 20 MEQ/15 ML UDC 40 MEQ PO (10:52)
[2025-08-12] MEDS: Magnesium Sulfate 4 GM Ivpb 4 GM/50 ML BAG IV (10:53)
[2025-08-12] MEDS: ACETAMINOPHEN 325 MG TABLET 650 MG PO ×2 (10:59→22:32)
--- NOTE | 2025-08-12 11:21 | XR_ITS ---
Examination: CT brain head without contrast. 2-D sagittal coronal reconstructions Date and time of exam: August 12, 2025, 1300 hours, comparison August 10, 2025 INDICATIONS: Altered mental status beginning 2 days ago, CT brain scan August 10, 2025 large acute nonhemorrhagic infarct right middle cerebral artery distribution CTDI: vol (mGy): 54.2 DLP: (mGycm): 1171 Technique: Multiple CT axial sections of the brain have been obtained, 5 mm slice thickness. Contrast has not been administered. 2-D sagittal, coronal reconstructions have been obtained Low dose protocols were performed. One or more of the following dose reduction techniques were used; automated exposure control, adjustment of the mA and/or KV according to patient size, use of iterative reconstruction technique. Findings: Again noted extensive edema in distribution of the right middle cerebral artery No interval hemorrhage density No interval mass effect upon the ventricular system No new infarcts Fourth ventricle midline Cranial vault intact IMPRESSION: Again noted large acute infarct in distribution right middle cerebral artery No interval acute hemorrhage
--- NOTE | 2025-08-12 12:58 | ESPR_ITS ---
<Statement entered by Pavan Wilder MD - 08/17/25 12:12> I reviewed above note and agree with findings and plans. I have also personally examined the patient with medicine team and went over assessment and plan with medical team including general internal medicine physician and resident physician. Documentation for date of: 08/12/25 No overnight events reported but continues to have pyrexia. Given concern for aspiration pneumonia and decreased oral intake, patient is currently NPO for aspiration precautions and videography study. Repeat CT. - The patient's plan was discussed with attending Dr. Meño Conklin MD PGY2 Internal Medicine Subjective Subjective Interval history: No overnight events. However, patient continues to spike fevers with the most recent episode of 100.5 @ 10:59 on 08/12 and prior to that 102 @ 13:20 on 08/11. Patient was examined at bedside; his dysarthria seems improved and it is a bit easier to understand him. Labs today significant for BP 173/80, WBC 14.4 -> 12.9, Hgb 12.6 -> 12.2, platelet count 215 -> 105, sodium 133, and glucose 209. On physical exam, bilateral anterior lung hernández seemed clear to auscultation and all other exam findings were benign. 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 Patient also seems to remain hypertensive despite his current regimen of PO lisinopril 40 mg qD, PO amlodipine 10 mg HS, and PO Coreg 3.125 mg BID. Current disposition is discharge to [facility] once he is deemed clinically stabilized. Plan Updates: -Ordered modified barium swallow to evaluate for micro-aspiration -Ordered repeat noncontrast head CT (showed no new hemorrhagic conversion) -Ordered NPO status Exam Vital Signs Temp Pulse Resp BP Pulse Ox O2 Del Method O2 Flow Rate 100.5 F H 100 19 167/81 H 93 L Room Air 2 08/12/25 10:59 08/12/25 10:09 08/12/25 07:12 08/12/25 10:09 08/12/25 07:12 08/12/25 07:12 08/11/25 16:00 Narrative Exam GENERAL APPEARANCE: AOx3. NAD, somewhat somnolent, unable to move left hemisphere of body, slurring words (seems improved) HEENT: Normocephalic atraumatic, L side facial droop and numbness neck is supple. Lids/conjunctiva normal. Mucous membranes moist, nares normal. CARDIAC: Regular rate and rhythm, S1+S2 heard. No murmurs, rubs, or gallops noted RESPIRATORY: Bilateral anterior lung hernández clear to auscultation. Respiratory effort normal, no tripod positioning, no accessory muscle use. ABDOMINAL: NBS. Soft, ND/NT. No evidence of fluid wave. No pulsatile masses on exam, rebound tenderness, Acosta sign or pain over McBurney's point. MUSCLES/EXTREMITIES: No abnormal range of motion on R side. L-sided paralysis DERM: Warm, pink and dry. No rashes, dermatoses, petechiae or lesions. NEUROLOGICAL: Speech is slurred. Normal level of consciousness. Unable to assess gait and coordination. 5/5 strength in Left sided extremities, 0/5 R sided extremities. Objective Labs 08/12/25 04:56 08/12/25 04:56 Labs: Laboratory Results - last 24 hr 08/11/25 08/11/25 08/12/25 12:12 17:01 04:56 WBC 12.9 H RBC 3.87 L Hgb 12.2 L Hct 35.0 L MCV 90 MCH 31.5 MCHC 34.9 RDW Std Deviation 41.4 Plt Count 105 L D Neut % (Auto) 70 Lymph % (Auto) 18 [place] % (Auto) 10 Eos % (Auto) 2 Baso % (Auto) 1 Neut # (Auto) 9.0 H Lymph # (Auto) 2.4 [place] # (Auto) 1.3 H Eos # (Auto) 0.2 Baso # (Auto) 0.1 Immature Gran # (Auto) 0.05 H Absolute Nucleated RBC 0.00 Immature Gran % 0 Nucleated RBC % 0 Sodium 133 L Potassium 3.6 Chloride 98 Carbon Dioxide 24.6 Anion Gap 10 BUN 11 Creatinine 0.7 Estim Creat Clear Calc 81.0 eGFR > 60 BUN/Creatinine Ratio 16 Glucose 209 H D Calculated Osmolality 271 L Calcium 8.4 Corrected Calcium 8.8 Phosphorus 2.9 Magnesium 1.6 Total Bilirubin 0.5 AST 20 ALT 17 Alkaline Phosphatase 58 Total Protein 6.0 Albumin 3.5 Globulin 2.5 Albumin/Globulin Ratio 1.4 Coccidioides IgM Ab Positive A Influenza A (Rapid) Negative Influenza B (Rapid) Negative RSV Rapid Negative ABG Interpretation ABG results: 08/09/25 18:09 ABG pH 7.51 H ABG pCO2 32 ABG pO2 55 L* ABG HCO3 25 ABG O2 Saturation 92 ABG Base Excess 3 Quality Measures Quality Measures VTE prophylaxis Advance care planning discussed with:: patient Assessment & Plan Assessment Current Active Medications: Generic Name Dose Route Start Last Admin Trade Name Freq PRN Reason Stop Dose Admin Acetaminophen 650 mg 08/10/25 07:26 08/12/25 10:59 Acetaminophen 325 Mg Tablet PO 09/08/25 22:58 650 mg Q4HR PRN Administration Fever >100.3 or Pain 1-3 Amlodipine Besylate 10 mg 08/12/25 09:00 08/12/25 10:09 Amlodipine Besylate 5 Mg Tablet PO 09/11/25 08:59 10 mg QDAY ANALIA Administration Aspirin 81 mg 08/08/25 09:00 08/12/25 10:10 Aspirin Ec 81 Mg Tabec PO 09/07/25 08:59 81 mg QDAY ANALIA Administration Atorvastatin Calcium 40 mg 08/08/25 21:00 08/11/25 20:39 Atorvastatin Calcium 20 Mg Tablet PO 09/07/25 20:59 40 mg HS ANALIA Administration Carvedilol 3.125 mg 08/11/25 17:30 08/12/25 08:02 Carvedilol 3.125 Mg Tablet PO 09/10/25 17:29 3.125 mg BIDWM ANALIA Administration Cefuroxime Axetil 500 mg 08/11/25 10:45 08/12/25 10:53 Cefuroxime Axetil 250 Mg Tablet PO 08/12/25 23:00 500 mg BID ANALIA Administration Clopidogrel Bisulfate 75 mg 08/08/25 09:00 08/12/25 10:10 Clopidogrel Bisulfate 75 Mg Tablet PO 09/07/25 08:59 75 mg QDAY ANALIA Administration Dextrose 25 ml 08/09/25 07:33 Dextrose 50%-Water Inj 50 Ml Syringe IV 09/08/25 07:32 Q15MIN PRN BG 50-70 responsive npo pt Dextrose 50 ml 08/09/25 07:33 Dextrose 50%-Water Inj 50 Ml Syringe IV 09/08/25 07:32 Q15MIN PRN BG <50 OR BG <70 & pt unresponsive Glucagon 1 mg 08/07/25 20:18 Glucagon Inj 1 Mg Vial IM Q15MIN PRN BG <70, and no IV access Hydralazine HCl 10 mg 08/11/25 15:59 08/11/25 16:05 Hydralazine Inj 20 Mg/Ml Vial IVP 09/10/25 15:58 10 mg Q6HR PRN Administration Hypertension Fluconazole 400 mg in 200 mls @ 100 mls/hr 08/11/25 16:03 08/12/25 10:04 Diflucan/Ns Ivpb IV 08/18/25 16:02 100 mls/hr QDAY ANALIA Administration Insulin Degludec 10 unit 08/12/25 09:00 08/12/25 10:43 Insulin Degludec 5 Unit/0.05 Ml (Per 5 Units) SC 09/11/25 08:59 Not Given HS ANALIA Insulin Human Lispro 0 unit 08/09/25 11:30 08/12/25 07:56 Insulin Lispro (Admelog) 1 Unit/0.01 Ml Unit SC 09/08/25 11:29 4 unit ACHS ANALIA Administration Protocol Labetalol HCl 10 mg 08/09/25 15:47 08/10/25 21:54 Labetalol Inj 5 Mg/Ml Vial 20 Ml IVP 09/08/25 15:46 10 mg On Hold: 08/12/25 10:20 Q6HR PRN Administration Comment: HYDRALAZINE ACTIVE Hypertension Lactulose 20 gm 08/10/25 09:30 08/12/25 10:05 Lactulose Syrup 20 Gm/30 Ml Udc PO 09/09/25 09:29 20 gm BID ANALIA Administration Protocol Lisinopril 40 mg 08/12/25 09:00 08/12/25 10:05 Lisinopril 20 Mg Tablet PO 09/11/25 08:59 40 mg QDAY ANALIA Administration Sennosides 1 tab 08/10/25 09:30 08/12/25 10:09 Senna Tablet PO 09/09/25 09:29 1 tab QDAY ANALIA Administration Protocol Tamsulosin HCl 0.4 mg 08/10/25 21:00 08/11/25 20:39 Tamsulosin Hcl 0.4 Mg Capsule PO 09/09/25 20:59 0.4 mg HS ANALIA Administration Plan Patient is a 75-year-old male with past medical history significant for NIDDM type II, history of CVA with left-sided deficits and ambulates with a walker at baseline and primary hypertension who presented with new onset acute left-sided weakness and numbness and was admitted for stroke workup. #Cocci pneumonia, #Fever #Concern for micro-aspirations Patient continues to spike fevers Possibly 2/2 valley fever due to Cocci (+) Per ID, may be 2/2 viral infection instead of bacterial 08/09 CXR negative for pneumonia 08/10 UCx showed no growth, UA was unconvincing 08/10 BCx showed 2/2 [id number] RSV (-), influenza A/B (-), MRSA (-) DDx: viral etiology, stroke-related autonomic dysfunction Rx: -Ordered modified barium swallow to evaluate for micro-aspiration -Continue IV fluconazole 400 mg BID [08/11--] -Per ID recommendations, continue PO cefuroxime 500 mg BID [08/11--] -NPO status HTN History of hypertension, BP elevated on presentation as above, likely in setting of stroke. Currently continues to remain uncontrolled, ranging between 160-180s/70-80s Rx: -08/[address] negative for new hemorrhagic conversion -Continue PO lisinopril 40 mg qD -Continue PO amlodipine 10 mg HS -Continue PO Coreg 3.125 mg BID -IV labetalol and hydralazine prn #Acute ischemic stroke w/ SORAYA and right MCA occlusion #History of multiple CVAs since 2020 Presenting with acute left-sided deficit, last sensation in addition to left facial droop. Outside the window for tPA. Head CT was negative for acute hemorrhage, mass effect or midline shift. Head/neck CTA showed 60% stenosis of proximal left internal carotid artery, 50% stenosis proximal right internal carotid artery, 90% stenosis junction P1 P2 segments right posterior cerebral artery, 80% stenosis P1 segment left posterior cerebral artery, 80% stenosis proximal M1 segment left middle cerebral artery, No cerebral large vessel arterial occlusions. Repeat Head/Neck CTA showed occlusion of the A2 and A3 segments of the right anterior cerebral artery, with reconstitution in the A4 segment, as well as occlusion of the M2, M3, and M4 segments of the right middle cerebral artery. Vitals on presentation showed BP 184/104, HR 105, afebrile. Teleneurology was consulted. Recommendations as below: ? Seizure precaution ? Head elevation >30 degrees ? Continue TYLENOL for fever ? Continue ASPIRIN 81 mg daily (continue for 21 days total, started 08/07) ? Continue PLAVIX 75 mg daily -Per neurology, based on 08/[address] showing interval large acute nonhemorrhagic infarct of right middle cerebral artery distribution, consider d/cing aspirin and Plavix in favor of Lovenox for anticoagulation -08/[address] negative for new hemorrhagic conversion -Ordered modified barium swallow to evaluate for micro-aspiration ?PT evaluation complete - Lipids -> Cholesterol: 172, Triglycerides: 85, LDL: 95, HDL: 60 - TSH: 0.92 - A1C: 7.8 Pulmonary Embolism On CTA acute pulmonary embolism is noted involving the segmental branches of the right upper lobe pulmonary artery, which was only partially imaged. Non- emergent follow-up with a CT pulmonary angiogram is recommended. Plan: -Family declined operative treatment -Per neurology, based on 08/[address] showing interval large acute nonhemorrhagic infarct of right middle cerebral artery distribution, consider d/cing aspirin and Plavix in favor of Lovenox for anticoagulation #Urinary retention (resolved) Had been unable to urinate after his [place] catheter was removed and bladder scan showed 480 mL of retained urine on 08/09 Now back on Whit[place] catheter Plan: -Continue PO tamsulosin 0.4 mg qD #Constipation (resolved) Per sister, patient has not had a BM for 3 weeks No reports of abdominal pain and no abdominal distension noted on physical exam, bowel sounds present 08/09 KUB showed prominent colonic ileus and moderate to prominent stool in the rectum 08/10 BM x 1 Plan: -Continue bowel regimen as appropriate T2DM GLUCOSE slightly elevated. A1c: 7.8. ? INSULIN sliding scale ? Accu-Chek Health maintenance Diet: Carbohydrate Consistent (Mildly Thick Level 2, Dysphagia 1 Pureed) GI prophylaxis: None DVT prophylaxis: None Antibiotics: IV fluconazole and IV cefuroxime CODE STATUS: Full code Disposition: Currently being worked up for fever of unclear etiology Case was discussed with attending physician, Dr. Wilder, and supervising resident, Dr. Conklin. Femi Mckeon, DO Internal Medicine, PGY-1
--- NOTE | 2025-08-12 14:32 | PC.SS ---
Update note; Possible pegtube placement. Patient will discharge to [facility] when medically cleared.
--- NOTE | 2025-08-12 19:31 | ESPR_ITS ---
Documentation for date of: 08/12/25 Subjective Subjective Interval history: Patient examined at bedside. WBC down trended to 12.9, hemoglobin stable. Other labs unremarkable. Continues to spike fevers. 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 Still exhibiting dysarthria, left hemineglect, left hemiplegia. Continue physical therapy. Repeat CT head this morning was negative for interval hemorrhage. Family to consider possible PEG tube feeds. Exam Vital Signs Temp Pulse Resp BP Pulse Ox O2 Del Method O2 Flow Rate 100.5 F H 100 19 167/81 H 93 L Room Air 2 08/12/25 10:59 08/12/25 10:09 08/12/25 07:12 08/12/25 10:09 08/12/25 07:12 08/12/25 07:12 08/11/25 16:00 Narrative Exam General: Elderly male, left hemiplegia, falling to left side HEENT: NCAT, No JVD noted. Mucosa dry. Pupils are equal and reactive to light bilaterally, left facial droop Cardiovascular: Normal S1 and S2. Regular rate and rhythm. Respiratory: Lungs are clear to auscultation bilaterally. No wheezing or crackles heard. Abdomen: Soft, nontender, not distended, normal bowel sounds. Skin: Warm to touch, dry, no rashes noted Musculoskeletal: only able to move right upper and lower extremity. Strength 5/5 on right. No movement of left side. NEURO: unable to assess mentation. Left sided neglect. Speech and language: dysarthria with dysphasia. Motor system: Strength: 5 out of 5 in right extremities, 0/5 on left extremities; No pronator drift noted. No intention tremors noted. Gait: Not tested. No signs of meningeal irritation noted. Objective Labs 08/13/25 04:43 08/13/25 04:43 Labs: Laboratory Results - last 24 hr 08/12/25 04:56 WBC 12.9 H RBC 3.87 L Hgb 12.2 L Hct 35.0 L MCV 90 MCH 31.5 MCHC 34.9 RDW Std Deviation 41.4 Plt Count 105 L D Neut % (Auto) 70 Lymph % (Auto) 18 [place] % (Auto) 10 Eos % (Auto) 2 Baso % (Auto) 1 Neut # (Auto) 9.0 H Lymph # (Auto) 2.4 [place] # (Auto) 1.3 H Eos # (Auto) 0.2 Baso # (Auto) 0.1 Immature Gran # (Auto) 0.05 H Absolute Nucleated RBC 0.00 Immature Gran % 0 Nucleated RBC % 0 Sodium 133 L Potassium 3.6 Chloride 98 Carbon Dioxide 24.6 Anion Gap 10 BUN 11 Creatinine 0.7 Estim Creat Clear Calc 81.0 eGFR > 60 BUN/Creatinine Ratio 16 Glucose 209 H D Calculated Osmolality 271 L Calcium 8.4 Corrected Calcium 8.8 Phosphorus 2.9 Magnesium 1.6 Total Bilirubin 0.5 AST 20 ALT 17 Alkaline Phosphatase 58 Total Protein 6.0 Albumin 3.5 Globulin 2.5 Albumin/Globulin Ratio 1.4 ABG Interpretation ABG results: 08/09/25 18:09 ABG pH 7.51 H ABG pCO2 32 ABG pO2 55 L* ABG HCO3 25 ABG O2 Saturation 92 ABG Base Excess 3 Quality Measures Quality Measures VTE prophylaxis Advance care planning discussed with:: sibling Assessment & Plan Assessment Current Active Medications: Generic Name Dose Route Start Last Admin Trade Name Freq PRN Reason Stop Dose Admin Acetaminophen 650 mg 08/10/25 07:26 08/12/25 10:59 Acetaminophen 325 Mg Tablet PO 09/08/25 22:58 650 mg Q4HR PRN Administration Fever >100.3 or Pain 1-3 Amlodipine Besylate 10 mg 08/12/25 09:00 08/12/25 10:09 Amlodipine Besylate 5 Mg Tablet PO 09/11/25 08:59 10 mg QDAY ANALIA Administration Aspirin 81 mg 08/08/25 09:00 08/12/25 10:10 Aspirin Ec 81 Mg Tabec PO 09/07/25 08:59 81 mg QDAY ANALIA Administration Atorvastatin Calcium 40 mg 08/08/25 21:00 08/11/25 20:39 Atorvastatin Calcium 20 Mg Tablet PO 09/07/25 20:59 40 mg HS ANALIA Administration Carvedilol 3.125 mg 08/11/25 17:30 08/12/25 18:00 Carvedilol 3.125 Mg Tablet PO 09/10/25 17:29 Not Given BIDWM ANALIA Cefuroxime Axetil 500 mg 08/11/25 10:45 08/12/25 10:53 Cefuroxime Axetil 250 Mg Tablet PO 08/12/25 23:00 500 mg BID ANALIA Administration Clopidogrel Bisulfate 75 mg 08/08/25 09:00 08/12/25 10:10 Clopidogrel Bisulfate 75 Mg Tablet PO 09/07/25 08:59 75 mg QDAY ANALIA Administration Dextrose 25 ml 08/09/25 07:33 Dextrose 50%-Water Inj 50 Ml Syringe IV 09/08/25 07:32 Q15MIN PRN BG 50-70 responsive npo pt Dextrose 50 ml 08/09/25 07:33 Dextrose 50%-Water Inj 50 Ml Syringe IV 09/08/25 07:32 Q15MIN PRN BG <50 OR BG <70 & pt unresponsive Glucagon 1 mg 08/07/25 20:18 Glucagon Inj 1 Mg Vial IM Q15MIN PRN BG <70, and no IV access Hydralazine HCl 10 mg 08/11/25 15:59 08/11/25 16:05 Hydralazine Inj 20 Mg/Ml Vial IVP 09/10/25 15:58 10 mg Q6HR PRN Administration Hypertension Fluconazole 400 mg in 200 mls @ 100 mls/hr 08/11/25 16:03 08/12/25 10:04 Diflucan/Ns Ivpb IV 08/18/25 16:02 100 mls/hr QDAY ANALIA Administration Insulin Degludec 10 unit 08/12/25 09:00 08/12/25 10:43 Insulin Degludec 5 Unit/0.05 Ml (Per 5 Units) SC 09/11/25 08:59 Not Given HS [facility] Insulin Human Lispro 0 unit 08/09/25 11:30 08/12/25 17:21 Insulin Lispro (Admelog) 1 Unit/0.01 Ml Unit SC 09/08/25 11:29 Not Given ACHS [facility] Protocol Labetalol HCl 10 mg 08/09/25 15:47 08/10/25 21:54 Labetalol Inj 5 Mg/Ml Vial 20 Ml IVP 09/08/25 15:46 10 mg On Hold: 08/12/25 10:20 Q6HR PRN Administration Comment: HYDRALAZINE ACTIVE Hypertension Lactulose 20 gm 08/10/25 09:30 08/12/25 10:05 Lactulose Syrup 20 Gm/30 Ml Udc PO 09/09/25 09:29 20 gm BID ANALIA Administration Protocol Lisinopril 40 mg 08/12/25 09:00 08/12/25 10:05 Lisinopril 20 Mg Tablet PO 09/11/25 08:59 40 mg QDAY ANALIA Administration Sennosides 1 tab 08/10/25 09:30 08/12/25 10:09 Senna Tablet PO 09/09/25 09:29 1 tab QDAY ANALIA Administration Protocol Tamsulosin HCl 0.4 mg 08/10/25 21:00 08/11/25 20:39 Tamsulosin Hcl 0.4 Mg Capsule PO 09/09/25 20:59 0.4 mg HS ANALIA Administration Plan Gordo Corcoran is 75 yr male with PMH of diabetes, HTN, previous CVA 2020 presented to ED on 08/06 due to left side full motor deficits and dysarthria. Found to have acute ischemic stroke, initially NIHSS 5 progressed to NIHSS 23, now with flaccid left hemiplegia, left facial droop, and dysarthria. He denied transfer for surgery. #Ischemia stroke of SORAYA/right MCA #Previous CVA Presenting with acute left-sided deficit, last sensation in addition to left facial droop. Outside the window for tPA. Head CT was negative for acute hemorrhage, mass effect or midline shift. Head/neck CTA showed 60% stenosis of proximal left internal carotid artery, 50% stenosis proximal right internal carotid artery, 90% stenosis junction P1 P2 segments right posterior cerebral artery, 80% stenosis P1 segment left posterior cerebral artery, 80% stenosis proximal M1 segment left middle cerebral artery, No cerebral large vessel arterial occlusions. Repeat Head/Neck CTA showed occlusion of the A2 and A3 segments of the right anterior cerebral artery, with reconstitution in the A4 segment, as well as occlusion of the M2, M3, and M4 segments of the right middle cerebral artery. Patient denied transfer to surgical intervention. They wish to persue acute rehab. But, . Due to extent of neurologic impairment, patient may not be suitable for acute rehab placement. ? Seizure precaution ? Head elevation >30 degrees ? Continue LABETALOL 10 mg for BP >220/120 ? Continue TYLENOL for fever ? Continue ASPIRIN 81 mg daily ? Continue PLAVIX 75 mg daily (to be continued indefinitely) -atrovastatin 4omg daily ? Pending bedside swallow eval --Pureed diet, moderate oral dysphagia. Family to consider PEG tube feeds. ? Pending echocardiogram - Held - Lipids -> Cholesterol: 172, Triglycerides: 85, LDL: 95, HDL: 60 - TSH: 0.92 - A1C: 7.8 #Pulmonary Embolism On CTA acute pulmonary embolism is noted involving the segmental branches of the right upper lobe pulmonary artery, which was only partially imaged. Nonemergent follow-up with a CT pulmonary angiogram is recommended. Plan: - Family declines operative treatment -family decline anticoagulant therapy #T2DM GLUCOSE slightly elevated. A1c: 7.8. ? INSULIN sliding scale ? Accu-Cheks #Acute cystitis #HTN ##Cocci pneumonia Primary care team to manage above conditions and ongoing care needs. The patient's management plan was discussed with my attending physician Dr. Babb. Indira Pal, PGY-2 Attending Provider Attestation/Addendum I personally have seen and examined the patient at the bedside and I agree with resident's findings, assessment and plan of care. Patient presenting symptoms are most consistent with massive right ICA stroke, continue to have left hemineglect with dense hemiplegia and dysarthria. As his functional dysphagia has gotten worse, his sister is trying to decide about PEG tube placement before transferring to rehab. Continue with aspirin, Plavix and statin with close monitoring for any change in mental status or worsening neurological deficit as he stands a higher chance of hemorrhagic transformation from the massive ischemic stroke.
[2025-08-12] MEDS: TAMSULOSIN HCL 0.4 MG CAPSULE PO (22:40)
[2025-08-12] MEDS: INSULIN DEGLUDEC 5 UNIT/0.05 ML (PER 5 UNITS) 10 UNIT SC (23:30)
[2025-08-13] VITALS (11 sets, daily range): BP systolic 131–174; BP diastolic 58–97; PULSE 74–89; RESP 16–96; TEMP 36.8–37.7; O2SAT 92–96; BMI 25.5; BMI 12.0
[2025-08-13 05:24] LABS: Basophils # (Auto) 0.1 Thou/mm3 (0.0-0.2); Basophils % (Auto) 1 % (0-2.5); Eosinophils # (Auto) 0.3 Thou/mm3 (0.0-0.5); Eosinophils % (Auto) 3 % (0-10); Hematocrit 35.0 % (41.0-53.0); Hemoglobin 12.2 g/dL (13.5-16.0); Immature Granulocytes Auto 0.05 Thou/mm3 (0.00-0.00); Lymphocytes # (Auto) 2.5 Thou/mm3 (1.0-4.8); Lymphocytes % (Auto) 20 % (10-50); Mean Corpuscular HGB Conc 34.9 g/dl (31.0-37.0); Mean Corpuscular Hemoglobin 31.9 pg (25.0-35.0); Mean Corpuscular Volume 91 fL (80-100); Monocytes # (Auto) 1.4 Thou/mm3 (0.0-0.8); Monocytes % (Auto) 12 % (0-12); Neutrophils # (Auto) 7.8 Thou/mm3 (1.8-7.7); Neutrophils % (Auto) 65 % (37-80); Nucleated Red Blood Cell # 0.00 Thou/mm3 (0.00-0.00); Nucleated Red Blood Cell % 0 /100 WBC (0); Platelet Count 145 Thou/mm3 (140-440); RDW Standard Deviation 41.8 fL (35.1-43.9); Red Blood Count 3.83 Miln/mm3 (4.50-5.90); White Blood Count 12.1 Thou/mm3 (3.8-10.6)
[2025-08-13 05:53] LABS: Alanine Aminotransferase 14 U/L (10-49); Albumin, Serum 3.6 gm/dL (3.4-4.8); Albumin/Globulin Ratio 1.4 (1.2-2.2); Alkaline Phosphatase 55 U/L (46-116); Anion Gap 10 (7-16); Aspartate Amino Transferase 15 U/L (0-34); BUN/Creatinine Ratio 20 Ratio (12-20); Bilirubin,Total 0.6 mg/dL (0.3-1.2); Blood Urea Nitrogen 12 mg/dL (9-23); Calcium 8.7 mg/dL (8.3-10.6); Calcium (Corrected) 9.0 mg/dL (8.5-10.1); Carbon Dioxide 27.1 mMol/L (20.0-31.0); Chloride 97 mMol/L (98-107); Creatinine (Component) 0.6 mg/dL (0.6-1.3); Estimated Creatinine Clearance 94.5 mL/min (>60); Globulin 2.5 gm/dL (2.3-3.5); Glucose 222 mg/dL (74-106); Magnesium 1.9 mg/dL (1.6-2.6); Osmolality,Calculated 274 (275-295); Phosphorous 3.0 mg/dL (2.4-5.1); Potassium 3.7 mMol/L (3.4-5.1); Sodium 134 mMol/L (136-145); Total Protein 6.1 gm/dL (5.7-8.2); eGFR > 60 See Note
[2025-08-13] MEDS: FLUCONAZOLE/NS 400 MG IVPB 400 MG/200 ML BAG 100 MG IV (08:27)
[2025-08-13] MEDS: ASPIRIN EC 81 MG TABEC PO (08:28)
[2025-08-13] MEDS: CLOPIDOGREL BISULFATE 75 MG TABLET PO (08:28)
[2025-08-13] MEDS: LACTULOSE SYRUP 20 GM/30 ML UDC PO ×2 (08:29→21:02)
--- NOTE | 2025-08-13 09:20 | PC.SS ---
SS follow up note; SS sent updated clinicals to [facility] from [facility] for auth.
--- NOTE | 2025-08-13 09:32 | ESCONSULT_ITS ---
RE: LORA FISHER : 1950 DATE OF CONSULTATION: 08/11/2025 REFERRING PHYSICIAN: Dr. Tony Erazo REASON FOR CONSULTATION: Renal insufficiency with acute illness noted. HISTORY OF PRESENT ILLNESS: The patient's medical problems include diabetes, , and surgeries are as listed in record. ALLERGIES: NONE NOTED. IMMUNIZATIONS: Last tetanus is not known. he does not take a flu shot every year. He has had COVID vaccine pneumococcal statu is not known with certainty. FAMILY HISTORY: Unremarkable. SOCIAL HISTORY: He lives independently. PHYSICAL EXAMINATION: On exam, the patient is well-appearing. Abdomen is benign. IMPRESSION: Acute illness. RECOMMENDATIONS: I am going to try him on some oral antibiotics . He appears to have a viral syndrome with low-grade fever. 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 He will need to be here for a couple of days until his fevers are gone. By the time we were to get any results back from the county lab, we will have seenimprovement, so there is really no value in checking that. He wishes to check on procalcitonin he can do so tomorrow, but due to renal insufficiency, it is probably not appropriate to do that. I will check on him superficially on Monday. DT: 12:32:42 TT: 13:04:00 Ref: [id number] - TID: [id number] MTDD
--- NOTE | 2025-08-13 10:20 | PC.SS ---
SS follow up note; Swallow study pending. Patient will discharge to [facility] when medically cleared.
[2025-08-13] MEDS: INSULIN LISPRO (AdmeLOG) 1 UNIT/0.01 ML UNIT SC ×3 (11:35→21:04)
--- NOTE | 2025-08-13 13:25 | ESPR_ITS ---
<Statement entered by Pavan Wilder MD - 08/17/25 12:13> I reviewed above note and agree with findings and plans. I have also personally examined the patient with medicine team and went over assessment and plan with medical team including medical assistant internal medicine and resident physician. Documentation for date of: 08/13/25 No overnight events. Patient went at bedside. Continues to maxamine in terms of mentation, getting into large MCA stroke. No change in the left extremities in terms of function. Repeat CT head negative. Radiography for swallow exam canceled.. Patient is likely to be discharged within the next 24 hours on modified diet of dysphagia 1 moderate thickness. - The patient's plan was discussed with attending Dr. Meño Conklin MD PGY2 Internal Medicine Subjective Subjective Interval history: Overnight, patient continues to spike fevers with the last one of 100.5 degrees occurring at 20:00 last night. Patient was examined at bedside; he appears A & O x 4 and in NAD. He expresses displeasure with the fact that nobody allowed him to walk independently with his walker yesterday. Labs today significant for WBC 12.9 -> 12.1, Hgb 12.2, sodium 134, and glucose 222. Patient continues to have febrile episodes of unclear etiology as well as hypertension despite multiple antihypertensive medications. The idea of a PEG tube was broached today with patient and his sister which patient did not want. Originally, patient had been planned for modified barium swallow study but, due to extenuating circumstances not related to the patient, IR is unable to do this in the near future. Plan Updates: -Ordered HIV (1&2) antibody rapid routine -Per ID recommendations, switched route from IV to PO fluconazole 400 mg qD -Switched from NPO to Diet Carbohydrate Consistent Low Exam Vital Signs Temp Pulse Resp BP Pulse Ox O2 Del Method O2 Flow Rate 98.3 F 84 22 H 174/75 H 96 Room Air 2 08/13/25 08:00 08/13/25 12:00 08/13/25 08:00 08/13/25 08:28 08/13/25 08:00 08/13/25 08:00 08/11/25 16:00 Narrative Exam GENERAL APPEARANCE: AOx4. NAD, unable to move left hemisphere of body, slurring words (seems improved) HEENT: Normocephalic atraumatic, L side facial droop and numbness neck is supple. Lids/conjunctiva normal. Mucous membranes moist, nares normal. CARDIAC: Regular rate and rhythm, S1+S2 heard. No murmurs, rubs, or gallops noted RESPIRATORY: Bilateral anterior lung hernández clear to auscultation. Respiratory effort normal, no tripod positioning, no accessory muscle use. ABDOMINAL: NBS. Soft, ND/NT. No evidence of fluid wave. No pulsatile masses on exam, rebound tenderness, Acosta sign or pain over McBurney's point. MUSCLES/EXTREMITIES: No abnormal range of motion on R side. L-sided paralysis DERM: Warm, pink and dry. No rashes, dermatoses, petechiae or lesions. NEUROLOGICAL: Speech is slurred. Normal level of consciousness. Unable to assess gait and coordination. 5/5 strength in Left sided extremities, 0/5 R sided extremities. Objective Labs 08/13/25 04:43 08/13/25 04:43 Labs: Laboratory Results - last 24 hr 08/13/25 04:43 WBC 12.1 H RBC 3.83 L Hgb 12.2 L Hct 35.0 L MCV 91 MCH 31.9 MCHC 34.9 RDW Std Deviation 41.8 Plt Count 145 D Neut % (Auto) 65 Lymph % (Auto) 20 [place] % (Auto) 12 Eos % (Auto) 3 Baso % (Auto) 1 Neut # (Auto) 7.8 H Lymph # (Auto) 2.5 [place] # (Auto) 1.4 H Eos # (Auto) 0.3 Baso # (Auto) 0.1 Immature Gran # (Auto) 0.05 H Absolute Nucleated RBC 0.00 Immature Gran % 0 Nucleated RBC % 0 Sodium 134 L Potassium 3.7 Chloride 97 L Carbon Dioxide 27.1 Anion Gap 10 BUN 12 Creatinine 0.6 Estim Creat Clear Calc 94.5 eGFR > 60 BUN/Creatinine Ratio 20 Glucose 222 H Calculated Osmolality 274 L Calcium 8.7 Corrected Calcium 9.0 Phosphorus 3.0 Magnesium 1.9 Total Bilirubin 0.6 AST 15 ALT 14 Alkaline Phosphatase 55 Total Protein 6.1 Albumin 3.6 Globulin 2.5 Albumin/Globulin Ratio 1.4 ABG Interpretation ABG results: 08/09/25 18:09 ABG pH 7.51 H ABG pCO2 32 ABG pO2 55 L* ABG HCO3 25 ABG O2 Saturation 92 ABG Base Excess 3 Quality Measures Quality Measures VTE prophylaxis Advance care planning discussed with:: patient Assessment & Plan Assessment Current Active Medications: Generic Name Dose Route Start Last Admin Trade Name Chanel PRN Reason Stop Dose Admin Acetaminophen 650 mg 08/10/25 07:26 08/12/25 22:32 Acetaminophen 325 Mg Tablet PO 09/08/25 22:58 650 mg Q4HR PRN Administration Fever >100.3 or Pain 1-3 Amlodipine Besylate 10 mg 08/12/25 09:00 08/13/25 08:27 Amlodipine Besylate 5 Mg Tablet PO 09/11/25 08:59 10 mg QDAY ANALIA Administration Aspirin 81 mg 08/08/25 09:00 08/13/25 08:28 Aspirin Ec 81 Mg Tabec PO 09/07/25 08:59 81 mg QDAY ANALIA Administration Atorvastatin Calcium 40 mg 08/08/25 21:00 08/12/25 22:11 Atorvastatin Calcium 20 Mg Tablet PO 09/07/25 20:59 Not Given HS ANALIA Carvedilol 3.125 mg 08/11/25 17:30 08/13/25 08:28 Carvedilol 3.125 Mg Tablet PO 09/10/25 17:29 3.125 mg BIDWM ANALIA Administration Clopidogrel Bisulfate 75 mg 08/08/25 09:00 08/13/25 08:28 Clopidogrel Bisulfate 75 Mg Tablet PO 09/07/25 08:59 75 mg QDAY ANALIA Administration Dextrose 25 ml 08/09/25 07:33 Dextrose 50%-Water Inj 50 Ml Syringe IV 09/08/25 07:32 Q15MIN PRN BG 50-70 responsive npo pt Dextrose 50 ml 08/09/25 07:33 Dextrose 50%-Water Inj 50 Ml Syringe IV 09/08/25 07:32 Q15MIN PRN BG <50 OR BG <70 & pt unresponsive Glucagon 1 mg 08/07/25 20:18 Glucagon Inj 1 Mg Vial IM Q15MIN PRN BG <70, and no IV access Hydralazine HCl 10 mg 08/11/25 15:59 08/11/25 16:05 Hydralazine Inj 20 Mg/Ml Vial IVP 09/10/25 15:58 10 mg Q6HR PRN Administration Hypertension Fluconazole 400 mg in 200 mls @ 100 mls/hr 08/11/25 16:03 10/08/25 08:27 Diflucan/Ns Ivpb IV 08/18/25 16:02 100 mls/hr QDAY ANALIA Administration Insulin Degludec 10 unit 08/12/25 09:00 08/12/25 23:30 Insulin Degludec 5 Unit/0.05 Ml (Per 5 Units) SC 09/11/25 08:59 10 unit HS ANALIA Administration Insulin Human Lispro 0 unit 08/13/25 12:00 08/13/25 11:35 Insulin Lispro (Admelog) 1 Unit/0.01 Ml Unit SC 09/12/25 11:59 5 unit Q6HR ANALIA Administration Protocol Lactulose 20 gm 08/10/25 09:30 08/13/25 08:29 Lactulose Syrup 20 Gm/30 Ml Udc PO 09/09/25 09:29 20 gm BID ANALIA Administration Protocol Lisinopril 40 mg 08/12/25 09:00 08/13/25 08:28 Lisinopril 20 Mg Tablet PO 09/11/25 08:59 40 mg QDAY ANALIA Administration Sennosides 1 tab 08/10/25 09:30 08/13/25 08:29 Senna Tablet PO 09/09/25 09:29 1 tab QDAY ANALIA Administration Protocol Tamsulosin HCl 0.4 mg 08/10/25 21:00 08/12/25 22:40 Tamsulosin Hcl 0.4 Mg Capsule PO 09/09/25 20:59 0.4 mg HS ANALIA Administration Plan Patient is a 75-year-old male with past medical history significant for NIDDM type II, history of CVA with left-sided deficits and ambulates with a walker at baseline and primary hypertension who presented with new onset acute left-sided weakness and numbness and was admitted for stroke workup. #Cocci pneumonia, #Fever #Concern for micro-aspirations Patient continues to spike fevers Possibly 2/2 stroke-related autonomic dysfunction or valley fever due to Cocci (+) Per ID, may be 2/2 viral infection instead of bacterial 08/09 CXR negative for pneumonia 08/10 UCx showed no growth, UA was unconvincing 08/10 BCx showed 2/2 [id number] RSV (-), influenza A/B (-), MRSA (-) DDx: viral etiology, stroke-related autonomic dysfunction Rx: -Per IR, currently unable to obtain modified barium swallow to evaluate for micro-aspiration -Continue PO fluconazole 400 mg BID [08/11--] -Per ID recommendations, continue PO cefuroxime 500 mg BID [08/11--] -Switched from NPO to Diet Carbohydrate Consistent Low HTN History of hypertension, BP elevated on presentation as above, likely in setting of stroke. Currently continues to remain uncontrolled, ranging between 160-180s/70-80s Rx: -08/[address] negative for new hemorrhagic conversion -Continue PO lisinopril 40 mg qD -Continue PO amlodipine 10 mg HS -Continue PO Coreg 3.125 mg BID -IV labetalol and hydralazine prn #Acute ischemic stroke w/ SORAYA and right MCA occlusion #History of multiple CVAs since 2020 Presenting with acute left-sided deficit, last sensation in addition to left facial droop. Outside the window for tPA. Head CT was negative for acute hemorrhage, mass effect or midline shift. Head/neck CTA showed 60% stenosis of proximal left internal carotid artery, 50% stenosis proximal right internal carotid artery, 90% stenosis junction P1 P2 segments right posterior cerebral artery, 80% stenosis P1 segment left posterior cerebral artery, 80% stenosis proximal M1 segment left middle cerebral artery, No cerebral large vessel arterial occlusions. Repeat Head/Neck CTA showed occlusion of the A2 and A3 segments of the right anterior cerebral artery, with reconstitution in the A4 segment, as well as occlusion of the M2, M3, and M4 segments of the right middle cerebral artery. Vitals on presentation showed BP 184/104, HR 105, afebrile. Teleneurology was consulted. Recommendations as below: ? Seizure precaution ? Head elevation >30 degrees ? Continue TYLENOL for fever ? Continue ASPIRIN 81 mg daily (continue for 21 days total, started 08/07) ? Continue PLAVIX 75 mg daily -Per neurology, based on 08/[address] showing interval large acute nonhemorrhagic infarct of right middle cerebral artery distribution, consider d/cing aspirin and Plavix in favor of Lovenox for anticoagulation -08/[address] negative for new hemorrhagic conversion -Ordered modified barium swallow to evaluate for micro-aspiration ?PT evaluation complete - Lipids -> Cholesterol: 172, Triglycerides: 85, LDL: 95, HDL: 60 - TSH: 0.92 - A1C: 7.8 Pulmonary Embolism On CTA acute pulmonary embolism is noted involving the segmental branches of the right upper lobe pulmonary artery, which was only partially imaged. Non- emergent follow-up with a CT pulmonary angiogram is recommended. Plan: -Family declined operative treatment -Per neurology, based on 08/[address] showing interval large acute nonhemorrhagic infarct of right middle cerebral artery distribution, consider d/cing aspirin and Plavix in favor of Lovenox for anticoagulation #Urinary retention (resolved) Had been unable to urinate after his Whitlock catheter was removed and bladder scan showed 480 mL of retained urine on 08/09 Now back on Whitlock catheter Plan: -Continue PO tamsulosin 0.4 mg qD #Constipation (resolved) Per sister, patient has not had a BM for 3 weeks No reports of abdominal pain and no abdominal distension noted on physical exam, bowel sounds present 08/09 KUB showed prominent colonic ileus and moderate to prominent stool in the rectum 08/10 BM x 1 Plan: -Continue bowel regimen as appropriate T2DM GLUCOSE slightly elevated. A1c: 7.8. ? INSULIN sliding scale ? Accu-Chek Health maintenance Diet: Carbohydrate Consistent (Mildly Thick Level 2, Dysphagia 1 Pureed) GI prophylaxis: None DVT prophylaxis: Contraindicated (on DAPT) Antibiotics: IV fluconazole and IV cefuroxime CODE STATUS: DNR/DNI Disposition: Currently being worked up for fever of unclear etiology Case was discussed with attending physician, Dr. Wilder, and supervising resident, Dr. Conklin. Femi Mckeon, DO Internal Medicine, PGY-1
--- NOTE | 2025-08-13 14:05 | PD.IDPROG ---
Subjective Subjective Interval history: fever takes wbout 48h to go away for cocci and viruses. imaging and O2 need neg I can only see in clinic if cocci pos at reference lab Exam Vital Signs Temp Pulse Resp BP Pulse Ox O2 Del Method O2 Flow Rate 98.3 F 84 22 H 174/75 H 96 Room Air 2 08/13/25 08:00 08/13/25 12:00 08/13/25 08:00 08/13/25 08:28 08/13/25 08:00 08/13/25 08:00 08/11/25 16:00 Narrative Exam limited eval today Objective - Internal Medicine Labs 08/13/25 04:43 08/13/25 04:43 Labs: Laboratory Results - last 24 hr 08/13/25 04:43 WBC 12.1 H RBC 3.83 L Hgb 12.2 L Hct 35.0 L MCV 91 MCH 31.9 MCHC 34.9 RDW Std Deviation 41.8 Plt Count 145 D Neut % (Auto) 65 Lymph % (Auto) 20 [place] % (Auto) 12 Eos % (Auto) 3 Baso % (Auto) 1 Neut # (Auto) 7.8 H Lymph # (Auto) 2.5 [place] # (Auto) 1.4 H Eos # (Auto) 0.3 Baso # (Auto) 0.1 Immature Gran # (Auto) 0.05 H Absolute Nucleated RBC 0.00 Immature Gran % 0 Nucleated RBC % 0 Sodium 134 L Potassium 3.7 Chloride 97 L Carbon Dioxide 27.1 Anion Gap 10 BUN 12 Creatinine 0.6 Estim Creat Clear Calc 94.5 eGFR > 60 BUN/Creatinine Ratio 20 Glucose 222 H Calculated Osmolality 274 L Calcium 8.7 Corrected Calcium 9.0 Phosphorus 3.0 Magnesium 1.9 Total Bilirubin 0.6 AST 15 ALT 14 Alkaline Phosphatase 55 Total Protein 6.1 Albumin 3.6 Globulin 2.5 Albumin/Globulin Ratio 1.4 ABG Interpretation ABG results: 08/09/25 18:09 ABG pH 7.51 H ABG pCO2 32 ABG pO2 55 L* ABG HCO3 25 ABG O2 Saturation 92 ABG Base Excess 3 Assessment & Plan A&P Narrative new fever without cxr changes or significant ua changes noted. pos cocci but chf on cxr only may be viral value of county viral panel low. will try changing abx to po and note that fluconis the same iv and po will see again prn Time Spent With Patient Time: Total time spent is greater than 50% in coordination of care (as documented) at patient's floor/unit and/or counseling patient:
[2025-08-13 16:16] LABS: HIV (1&2) Antibody Rapid Non-Reactive
--- NOTE | 2025-08-13 20:11 | PD.RESPRO ---
Documentation for date of: 08/13/25 Subjective Subjective Interval history: Patient examined at bedside. Blood pressure elevated 170/75, continues to have fever spikes overnight, labs are stable. Glucose this morning 222 on labs. Sister was at bedside and was updated with all questions answered to full. Explained again that patient is not a appropriate candidate for acute rehab and he is not showing any improvement in motor function on the left side. Patient is still having dyarthria and left hemineglect. Patient to continue aspirin, atorvastatin, Plavix for total of 90 days. Exam Vital Signs Temp Pulse Resp BP Pulse Ox O2 Del Method O2 Flow Rate 99.8 F 86 18 156/74 H 95 Room Air 2 08/13/25 16:00 08/13/25 17:44 08/13/25 16:00 08/13/25 17:44 08/13/25 16:00 08/13/25 16:00 08/11/25 16:00 Narrative Exam General: Elderly male, left hemiplegia, falling to left side HEENT: NCAT, No JVD noted. Mucosa dry. Pupils are equal and reactive to light bilaterally, left facial droop Cardiovascular: Normal S1 and S2. Regular rate and rhythm. Respiratory: Lungs are clear to auscultation bilaterally. No wheezing or crackles heard. Abdomen: Soft, nontender, not distended, normal bowel sounds. Skin: Warm to touch, dry, no rashes noted Musculoskeletal: only able to move right upper and lower extremity. Strength 5/5 on right. No movement of left side. NEURO: unable to assess mentation. Left sided neglect. Speech and language: dysarthria with dysphasia. Motor system: Strength: 5 out of 5 in right extremities, 0/5 on left extremities; No pronator drift noted. No intention tremors noted. Gait: Not tested. No signs of meningeal irritation noted. Objective Labs 08/13/25 04:43 08/13/25 04:43 Labs: Laboratory Results - last 24 hr 08/13/25 04:43 WBC 12.1 H RBC 3.83 L Hgb 12.2 L Hct 35.0 L MCV 91 MCH 31.9 MCHC 34.9 RDW Std Deviation 41.8 Plt Count 145 D Neut % (Auto) 65 Lymph % (Auto) 20 Frontier % (Auto) 12 Eos % (Auto) 3 Baso % (Auto) 1 Neut # (Auto) 7.8 H Lymph # (Auto) 2.5 Frontier # (Auto) 1.4 H Eos # (Auto) 0.3 Baso # (Auto) 0.1 Immature Gran # (Auto) 0.05 H Absolute Nucleated RBC 0.00 Immature Gran % 0 Nucleated RBC % 0 Sodium 134 L Potassium 3.7 Chloride 97 L Carbon Dioxide 27.1 Anion Gap 10 BUN 12 Creatinine 0.6 Estim Creat Clear Calc 94.5 eGFR > 60 BUN/Creatinine Ratio 20 Glucose 222 H Calculated Osmolality 274 L Calcium 8.7 Corrected Calcium 9.0 Phosphorus 3.0 Magnesium 1.9 Total Bilirubin 0.6 AST 15 ALT 14 Alkaline Phosphatase 55 Total Protein 6.1 Albumin 3.6 Globulin 2.5 Albumin/Globulin Ratio 1.4 HIV 1&2 Antibody Rapid Non-Reactive ABG Interpretation ABG results: 08/09/25 18:09 ABG pH 7.51 H ABG pCO2 32 ABG pO2 55 L* ABG HCO3 25 ABG O2 Saturation 92 ABG Base Excess 3 Quality Measures Quality Measures VTE prophylaxis Advance care planning discussed with:: sibling Assessment & Plan Assessment Current Active Medications: Generic Name Dose Route Start Last Admin Trade Name Freq PRN Reason Stop Dose Admin Acetaminophen 650 mg 08/10/25 07:26 08/12/25 22:32 Acetaminophen 325 Mg Tablet PO 09/08/25 22:58 650 mg Q4HR PRN Administration Fever >100.3 or Pain 1-3 Amlodipine Besylate 10 mg 08/12/25 09:00 08/13/25 08:27 Amlodipine Besylate 5 Mg Tablet PO 09/11/25 08:59 10 mg QDAY ANALIA Administration Aspirin 81 mg 08/08/25 09:00 08/13/25 08:28 Aspirin Ec 81 Mg Tabec PO 09/07/25 08:59 81 mg QDAY ANALIA Administration Atorvastatin Calcium 40 mg 08/08/25 21:00 08/12/25 22:11 Atorvastatin Calcium 20 Mg Tablet PO 09/07/25 20:59 Not Given HS ANALIA Carvedilol 3.125 mg 08/11/25 17:30 08/13/25 17:44 Carvedilol 3.125 Mg Tablet PO 09/10/25 17:29 3.125 mg BIDWM ANALIA Administration Clopidogrel Bisulfate 75 mg 08/08/25 09:00 08/13/25 08:28 Clopidogrel Bisulfate 75 Mg Tablet PO 09/07/25 08:59 75 mg QDAY ANALIA Administration Dextrose 25 ml 08/09/25 07:33 Dextrose 50%-Water Inj 50 Ml Syringe IV 09/08/25 07:32 Q15MIN PRN BG 50-70 responsive npo pt Dextrose 50 ml 08/09/25 07:33 Dextrose 50%-Water Inj 50 Ml Syringe IV 09/08/25 07:32 Q15MIN PRN BG <50 OR BG <70 & pt unresponsive Fluconazole 400 mg 08/14/25 09:00 Fluconazole 100 Mg Tablet PO 08/26/25 12:00 QDAY ANALIA Glucagon 1 mg 08/07/25 20:18 Glucagon Inj 1 Mg Vial IM Q15MIN PRN BG <70, and no IV access Hydralazine HCl 10 mg 08/11/25 15:59 08/11/25 16:05 Hydralazine Inj 20 Mg/Ml Vial IVP 09/10/25 15:58 10 mg Q6HR PRN Administration Hypertension Insulin Degludec 10 unit 08/12/25 09:00 08/12/25 23:30 Insulin Degludec 5 Unit/0.05 Ml (Per 5 Units) SC 09/11/25 08:59 10 unit HS ANALIA Administration Insulin Human Lispro 0 unit 08/13/25 21:00 Insulin Lispro (Admelog) 1 Unit/0.01 Ml Unit SC 09/12/25 20:59 ACHS ANALIA Protocol Lactulose 20 gm 08/10/25 09:30 08/13/25 08:29 Lactulose Syrup 20 Gm/30 Ml Udc PO 09/09/25 09:29 20 gm BID ANALIA Administration Protocol Lisinopril 40 mg 08/12/25 09:00 08/13/25 08:28 Lisinopril 20 Mg Tablet PO 09/11/25 08:59 40 mg QDAY ANALIA Administration Sennosides 1 tab 08/10/25 09:30 08/13/25 08:29 Senna Tablet PO 09/09/25 09:29 1 tab QDAY [facility] Administration Protocol Tamsulosin HCl 0.4 mg 08/10/25 21:00 08/12/25 22:40 Tamsulosin Hcl 0.4 Mg Capsule PO 09/09/25 20:59 0.4 mg HS [facility] Administration Plan Gordo Corcoran is 75 yr male with PMH of diabetes, HTN, previous CVA 2020 presented to ED on 08/06 due to left side full motor deficits and dysarthria. Found to have acute ischemic stroke, initially NIHSS 5 progressed to NIHSS 23, now with flaccid left hemiplegia, left facial droop, and dysarthria. He denied transfer for surgery. #Ischemia stroke of SORAYA/right MCA #Previous CVA Presenting with acute left-sided deficit, last sensation in addition to left facial droop. Outside the window for tPA. Head CT was negative for acute hemorrhage, mass effect or midline shift. Head/neck CTA showed 60% stenosis of proximal left internal carotid artery, 50% stenosis proximal right internal carotid artery, 90% stenosis junction P1 P2 segments right posterior cerebral artery, 80% stenosis P1 segment left posterior cerebral artery, 80% stenosis proximal M1 segment left middle cerebral artery, No cerebral large vessel arterial occlusions. Repeat Head/Neck CTA showed occlusion of the A2 and A3 segments of the right anterior cerebral artery, with reconstitution in the A4 segment, as well as occlusion of the M2, M3, and M4 segments of the right middle cerebral artery. Patient denied transfer to surgical intervention. They wish to persue acute rehab. But, . Due to extent of neurologic impairment, patient may not be suitable for acute rehab placement. ? Seizure precaution ? Head elevation >30 degrees ? Continue LABETALOL 10 mg for BP >220/120 ? Continue TYLENOL for fever ? Continue ASPIRIN 81 mg daily ? Continue PLAVIX 75 mg daily (to be continued indefinitely) -atrovastatin 4omg daily ? Pending bedside swallow eval --Pureed diet, moderate oral dysphagia. Family to consider PEG tube feeds. ? Pending echocardiogram - Held - Lipids -> Cholesterol: 172, Triglycerides: 85, LDL: 95, HDL: 60 - TSH: 0.92 - A1C: 7.8 #Pulmonary Embolism On CTA acute pulmonary embolism is noted involving the segmental branches of the right upper lobe pulmonary artery, which was only partially imaged. Nonemergent follow-up with a CT pulmonary angiogram is recommended. Plan: - Family declines operative treatment -family decline anticoagulant therapy -monitor hemodynamics #T2DM GLUCOSE slightly elevated. A1c: 7.8. ? INSULIN sliding scale ? Accu-Cheks #Acute cystitis #HTN ##Cocci pneumonia Primary care team to manage above conditions and ongoing care needs. The patient's management plan was discussed with my attending physician Dr. Babb. Indira Pal, PGY-2 Attending Provider Attestation/Addendum I personally have seen and examined the patient at the bedside and I agreed with resident's findings, assessment and plan of care. Patient's dense hemiplegia, hemineglect dysarthria remains unchanged his swallowing function has improved and is able to complete the meals when fed by the sister. When he remains afebrile for more than 24 hours, patient will be transferred to rehab.
[2025-08-13] MEDS: ATORVASTATIN CALCIUM 20 MG TABLET 40 MG PO (21:02)
[2025-08-13] MEDS: INSULIN DEGLUDEC 5 UNIT/0.05 ML (PER 5 UNITS) 10 UNIT SC (21:03)
[2025-08-13] MEDS: TAMSULOSIN HCL 0.4 MG CAPSULE PO (21:03)
[2025-08-14] VITALS: BP 157/78; PULSE 83; PULSE 84; RESP 15; TEMP 36.6; O2SAT 95
[2025-08-14 04:00] VITALS: BP 168/73; PULSE 86; RESP 19; TEMP 37.4; O2SAT 94
[2025-08-14 05:59] LABS: Basophils # (Auto) 0.1 Thou/mm3 (0.0-0.2); Basophils % (Auto) 1 % (0-2.5); Eosinophils # (Auto) 0.2 Thou/mm3 (0.0-0.5); Eosinophils % (Auto) 2 % (0-10); Hematocrit 32.2 % (41.0-53.0); Hemoglobin 11.5 g/dL (13.5-16.0); Immature Granulocytes Auto 0.03 Thou/mm3 (0.00-0.00); Lymphocytes # (Auto) 2.5 Thou/mm3 (1.0-4.8); Lymphocytes % (Auto) 19 % (10-50); Mean Corpuscular HGB Conc 35.7 g/dl (31.0-37.0); Mean Corpuscular Hemoglobin 32.1 pg (25.0-35.0); Mean Corpuscular Volume 90 fL (80-100); Monocytes # (Auto) 1.4 Thou/mm3 (0.0-0.8); Monocytes % (Auto) 11 % (0-12); Neutrophils # (Auto) 8.6 Thou/mm3 (1.8-7.7); Neutrophils % (Auto) 68 % (37-80); Nucleated Red Blood Cell # 0.00 Thou/mm3 (0.00-0.00); Nucleated Red Blood Cell % 0 /100 WBC (0); Platelet Count 129 Thou/mm3 (140-440); RDW Standard Deviation 40.9 fL (35.1-43.9); Red Blood Count 3.58 Miln/mm3 (4.50-5.90); White Blood Count 12.7 Thou/mm3 (3.8-10.6)
[2025-08-14 06:00] VITALS: BMI 25.5
[2025-08-14 06:18] LABS: Alanine Aminotransferase 13 U/L (10-49); Albumin, Serum 3.6 gm/dL (3.4-4.8); Albumin/Globulin Ratio 1.5 (1.2-2.2); Alkaline Phosphatase 51 U/L (46-116); Anion Gap 10 (7-16); Aspartate Amino Transferase 20 U/L (0-34); BUN/Creatinine Ratio 23 Ratio (12-20); Bilirubin,Total 0.6 mg/dL (0.3-1.2); Blood Urea Nitrogen 14 mg/dL (9-23); Calcium 8.8 mg/dL (8.3-10.6); Calcium (Corrected) 9.1 mg/dL (8.5-10.1); Carbon Dioxide 24.3 mMol/L (20.0-31.0); Chloride 98 mMol/L (98-107); Creatinine (Component) 0.6 mg/dL (0.6-1.3); Estimated Creatinine Clearance 94.5 mL/min (>60); Globulin 2.4 gm/dL (2.3-3.5); Glucose 138 mg/dL (74-106); Magnesium 1.6 mg/dL (1.6-2.6); Osmolality,Calculated 267 (275-295); Phosphorous 3.1 mg/dL (2.4-5.1); Potassium 3.4 mMol/L (3.4-5.1); Sodium 132 mMol/L (136-145); Total Protein 6.0 gm/dL (5.7-8.2); eGFR > 60 See Note
[2025-08-14] MEDS: INSULIN LISPRO (AdmeLOG) 1 UNIT/0.01 ML UNIT SC ×2 (07:53→12:09)
[2025-08-14 08:00] VITALS: BP 175/91; PULSE 89; PULSE 94; RESP 20; TEMP 36.9; O2SAT 95
[2025-08-14 08:58] VITALS: BP 175/91; PULSE 94
[2025-08-14] MEDS: ASPIRIN EC 81 MG TABEC PO (08:58)
[2025-08-14 08:59] VITALS: BP 175/91; PULSE 94
[2025-08-14] MEDS: FLUCONAZOLE 100 MG TABLET 400 MG PO (09:00)
[2025-08-14] MEDS: LACTULOSE SYRUP 20 GM/30 ML UDC PO (09:00)
[2025-08-14] MEDS: POTASSIUM CHLORIDE 10% 20 MEQ/15 ML UDC 40 MEQ PO (09:00)
[2025-08-14] MEDS: CLOPIDOGREL BISULFATE 75 MG TABLET PO (09:00)
--- NOTE | 2025-08-14 10:08 | PC.SS ---
Addendum entered by Lula Herrera 08/14/25 11:07: SS follow up note: [id number] SS updated patient's nurse, patient's sister and Elizabeth for [facility]. Original Note: SS contacted [facility] services to set up transportation for patient to discharge to [facility]. [facility] informed SS they would contact SS with ETA. SS updated patient's nurse, Beryl and patient's sister as well and Cadence from [facility].
[2025-08-14 12:00] VITALS: BP 134/82; PULSE 78; PULSE 88; RESP 18; TEMP 37.6; O2SAT 99
--- NOTE | 2025-08-14 12:43 | PC.NURSE ---
Report given to Paty at [facility].
--- NOTE | 2025-08-14 15:55 | ESDS_ITS ---
<Statement entered by Pavan Wilder MD - 08/17/25 12:15> I reviewed above note and agree with findings and plans. I have also personally examined the patient with medicine team and went over assessment and plan with medical team including corporate communications intern and resident physician. Planned Discharge Date 08/14/25 DS: Providers Provider Date of admission: 08/06/25 20:28 Primary care physician: Physician No Primary/Family Admitting Provider: Debi Cortez MD Attending Provider on Admission: Pavan Wilder MD Consults: 08/06/25 20:42 Consult to Neurology / Tele-Neurology Stat Comment: Consulting Provider: Brandon Babb 08/07/25 04:13 Referral Hospice Stat Comment: 08/07/25 09:24 Referral - [employer] Routine Comment: Referral Physical Therapy Urgent Comment: Physician Instructions: Instructions: Assessment for SNF placement. s/p stroke 08/11/25 08:51 Referral [facility] Routine Comment: 08/11/25 10:20 Consult to Infectious Diseases Routine Comment: Fever unknown source Consulting Provider: Ruben Lainez Consult to Infectious Diseases Urgent Comment: Consulting Provider: Ruben Lianez Attending Provider on DC: Robin Zuniga MD Discharging Provider: Robin Zuniga MD DS: Diagnosis Problem List Completed Was Problem List Reviewed/Reconciled?: Yes Hospital Course Hospital Course Hospital course: Patient is a 75-year-old male with past medical history significant for NIDDM type II, history of CVA with left-sided deficits and ambulates with a walker at baseline and primary hypertension who presented with new onset acute left-sided weakness and numbness who was found to a large occlusive stroke of the right middle cerebral artery and right anterior cerebral artery. Family prior to admission, refused transfer to higher level of care give large vessel occlusion. Next of kin made aware that overall has poor prognosis given history of stroke and now large vessel occlusion with left sided motor deficits. In the ED, patient was afebrile and tachycardic with permissive hypertension, leukocytosis with left shift and hyperglycemia. Initial NIHSS 5 and subsequently increased to 23. Head/Neck CTA: Occlusion of the right anterior cerebral artery, right middle cerebral artery, positive for right upper lobe pulmoanry artery emboli. Positive for right upper lobe pulmonary artery emboli. Tele neuro was consulted from ER, recommending admission for stroke workup and initiation of ASPIRIN and PLAVIX. NO TNK administered given large stroke and concern for hemorrhagic conversion, also unknown last well know time. Patients family declined transfer to [place] for thrombectomy and declined all procedures requesting only medical management. Hospital Course: During patient stay, patient was treated for stroke sequelae and UTI. Primary Team treated chronic conditions of hypertension, addressed decreased oral intake, and family concerns about prognosis. Speech Evaluation, recommended dysphagia diet 1 with thick consistency. Currently, no evidence of aspiration, but given large stroke and overall prognosis, patient may require a PEG tube and gastroenterology follow up if family so wishes. Neurology recommended patient for neuro rehab. Although Postiive for PE, patient saturating well and currently not a candidate for anticoagulation, given large vessel stroke. Given prostatomegaly noted on CT abdomen, Flomax started. Patient vitals are stable before discharge and plan spoken to family. Given overall stroke, motor deficits of left hemiparesis, and overall poor prognosis with probability of decompensation and possible re-hospitalization, hospice discussed. Currently, patient will be discharge to SNF. Instructions -Fluconazole 400 mg once daily for Valley Fever for the next 3-6 months, please follow up with your primary care provider. -New medication of Aspirin and Plavix 75 mg once day for Stroke to be continued for 21 days, then only Plavix. Please follow up with your primary care provider -New medication of Atorvastatin 80 mg at night -Please follow up with Neurology, Dr. Babb, for stroke. -Amlodipine 10 mg once daily and Lisinopril 40 mg once daily. Please keep systolic blood pressure <180 -Please follow up with your primary care provider within one week of discharge -[facility] -Whitlock Catheter to be discontinued in SNF and continue bladder training. Flomax added given enlarge prostate. -If your symptoms worsen,please seek immediate medical attention and return to your nearest emergency room -If you do not have a primary care provider, you may follow up at the [facility] at [address], [place] [address], #Cocci pneumonia #Fever #Concern for micro-aspirations #HTN #Acute ischemic stroke w/ SORAYA and right MCA occlusion #History of multiple CVAs since 2020 #Pulmonary Embolism #Urinary retention (resolved) #Constipation (resolved) #T2DM Case was discussed with Attending Dr. Wilder, and Senior Resident Dr. Rubin Zuniga DO PGY-1 - The patient's plan was discussed with attending Dr. Rubin Conklin MD PGY2 Internal Medicine Status at Discharge Functional status at discharge: bed bound Overall status at discharge: patient is not back to baseline Time Spent with Patient Time attestation: Total time spent providing and/or coordinating discharge services: Time spent: Greater than 30 minutes Exam Vital Signs Temp Pulse Resp BP Pulse Ox O2 Del Method O2 Flow Rate 99.6 F 78 18 134/82 H 99 Room Air 2 08/14/25 12:00 08/14/25 12:00 08/14/25 12:00 08/14/25 12:00 08/14/25 12:00 08/14/25 12:00 08/11/25 16:00 Narrative Exam GENERAL APPEARANCE: AOx4. NAD, unable to move left hemisphere of body, slurring words HEENT: Normocephalic atraumatic, L side facial droop and numbness neck is supple. Lids/conjunctiva normal. Mucous membranes moist, nares normal. CARDIAC: Regular rate and rhythm, S1+S2 heard. No murmurs, rubs, or gallops noted RESPIRATORY: Bilateral anterior lung hernández clear to auscultation. Respiratory effort normal, no tripod positioning, no accessory muscle use. ABDOMINAL: NBS. Soft, ND/NT. No evidence of fluid wave. No pulsatile masses on exam, rebound tenderness, Acosta sign or pain over McBurney's point. MUSCLES/EXTREMITIES: No abnormal range of motion on R side. L-sided paralysis DERM: Warm, pink and dry. No rashes, dermatoses, petechiae or lesions. NEUROLOGICAL: Speech is slurred. Normal level of consciousness. Unable to assess gait and coordination. 5/5 strength in Left sided extremities, 0/5 R sided extremities. Discharge Plan Plan Patient Disposition: Xfer Skilled Nsg Fac (SNF) Patient condition on transfer: Stable Care Plan Goals: Instructions: -Fluconazole 400 mg once daily for Valley Fever for the next 3-6 months, please follow up with your primary care provider. -New medication of Aspirin and Plavix 75 mg once day for Stroke to be continued for 21 days, then only Plavix. Please follow up with your primary care provider -New medication of Atorvastatin 80 mg at night -Please follow up with Neurology, Dr. Babb, for stroke. -Amlodipine 10 mg once daily and Lisinopril 40 mg once daily. Please keep systolic blood pressure <180 -Please follow up with your primary care provider within one week of discharge -[facility] to [facility] -Whitlock Catheter to be discontinued in SNF and continue bladder training. Flomax added given enlarge prostate. -If your symptoms worsen,please seek immediate medical attention and return to your nearest emergency room -If you do not have a primary care provider, you may follow up at the [facility] at [address] [place] [address] [address], [place] [address], Prescriptions/Referrals Prescriptions/Med Rec: New clopidogrel 75 mg Tablet 75 mg PO QDAY 30 Days Qty: 30 0RF aspirin 81 mg tablet 81 mg PO QDAY 30 Days Qty: 30 0RF atorvastatin [Lipitor] 80 mg tablet 80 mg PO QPM 30 Days Qty: 30 0RF sennosides [Senna Lax] 8.6 mg Tablet 8.6 mg PO QDAY PRN (Reason: Constipation) Qty: 30 0RF tamsulosin 0.4 mg Capsule 0.4 mg PO QDAY Qty: 30 0RF amlodipine 10 mg tablet 10 mg PO QDAY 30 Days Qty: 30 1RF cefuroxime axetil 250 mg Tablet 500 mg PO BID 2 Days Qty: 8 0RF carvedilol 3.125 mg Tablet 3.125 mg PO BIDWM 30 Days Qty: 60 0RF fluconazole 200 mg tablet 400 mg PO QDAY 30 Days Qty: 60 2RF lisinopril 40 mg tablet 40 mg PO QDAY 30 Days Qty: 30 0RF Continued metformin 1,000 mg PO BID Jardiance 25 mg tablet 25 mg PO DAILY carbidopa-levodopa 25-100 mg tablet extended release 2 tab PO DAILY omeprazole 40 mg capsule,delayed release(DR/EC) 40 mg PO DAILY mirtazapine 15 mg tablet 7.5 mg PO DAILY Januvia 100 mg tablet 100 mg PO DAILY Discontinued lisinopril 20 mg PO DAILY amlodipine 5 mg tablet 5 mg PO DAILY hydrochlorothiazide 25 mg tablet 25 mg PO DAILY Referrals: No Primary/Family,Physician [Primary Care Provider] Brandon Babb MD [Physician, Neurology] Patient/Caregiver Discharge Instructions Discharge Activity: activity as tolerated Education Materials: Anatomy of the Brain, Discharge Instructions for Stroke Print Language: Chinese Stand Alone Forms: [facility]cca Award Info., Patient Portal Info Letter Discharge Order Discharge Orders: Discharge (Routine); Ordered 08/14/25 Ordered By: Demetrice Conklin Quality Discharge Quality Measures VTE prophylaxis
== END 2025-08-14 12:40 | disposition skilled nursing facility (03) | DRG 64 ==
LOC: SERX 20:14 → SERHOLD 21:01 → S2NX 08-07 02:27 → S3SX 08-10 22:53
PROVIDERS: Family Medicine; Admitting Provider Student in an Organized Health Care Education/Training Program; Emergency Provider Emergency Medicine; Visit Provider Internal Medicine
DX: I63.511 Cerebral infarction due to unspecified occlusion or stenosis of right middle cerebral artery (principal); I26.99 Other pulmonary embolism without acute cor pulmonale; B38.0 Acute pulmonary coccidioidomycosis; E87.1 Hypo-osmolality and hyponatremia; G81.91 Hemiplegia, unspecified affecting right dominant side; N30.00 Acute cystitis without hematuria; R41.4 Neurologic neglect syndrome; G81.04 Flaccid hemiplegia affecting left nondominant side; K56.7 Ileus, unspecified; R29.810 Facial weakness; K59.00 Constipation, unspecified; E11.65 Type 2 diabetes mellitus with hyperglycemia; I65.21 Occlusion and stenosis of right carotid artery; I11.0 Hypertensive heart disease with heart failure; I50.9 Heart failure, unspecified; Z86.73 Personal history of transient ischemic attack (TIA), and cerebral infarction without residual deficits; R29.723 NIHSS score 23; I65.01 Occlusion and stenosis of right vertebral artery; Z66 Do not resuscitate; G93.89 Other specified disorders of brain; N28.9 Disorder of kidney and ureter, unspecified; R47.1 Dysarthria and anarthria; N31.9 Neuromuscular dysfunction of bladder, unspecified; N40.0 Benign prostatic hyperplasia without lower urinary tract symptoms; R13.10 Dysphagia, unspecified; Z79.02 Long term (current) use of antithrombotics/antiplatelets; Z79.82 Long term (current) use of aspirin; Z79.84 Long term (current) use of oral hypoglycemic drugs; Z79.899 Other long term (current) drug therapy
CPT/HCPCS: 36415; 36600; 70450; 70496; 70498; 71045; 74018; 74176; 80053; 80061; 80307; 81001; 82803; 83036; 83605; 83735; 84100; 84145; 84443; 85025; 85610; 85730; 86140; 86635; 86703; 87040; 87081; 87086; 87502; 87634; 92526; 92610; 93005; 93225; 94664; 96361; 96365; 97163; 99285; A4649; J0360; J0696; J1450; J1815; J3475; J3480; J3490; J7030; J7042; J7120; Q9967; A9270; J1920